=== PATIENT | male | born 1940 | race Caucasian/White ===

== ENCOUNTER → 2016-12-22 | Outpatient (CLI) | payer MEDICARE, BC | LOC: MW.CHUR 11:54 | PROVIDERS: ATTEND Urology | DX: R35.1 Nocturia (principal); Z85.51 Personal history of malignant neoplasm of bladder | CPT/HCPCS: 36415; 52000; 81001; 84153 ==

== ENCOUNTER → 2017-01-31 | Outpatient (CLI) | payer MEDICARE, BC ==
[2017-01-31 11:18] LABS: CHLORIDE,CL 104 mmol/L (98-110); SODIUM,NA 142 mmol/L (136-146)
--- NOTE | 2017-01-31 11:37 | CR ---
EXAMINATION: Two-view chest (PA and Lateral views). HISTORY: Cough. FINDINGS: The trachea is midline. The cardiomediastinal silhouette is within normal limits. Mild bibasilar ate lectasis/infiltrate. No pleural effusion or pneumothorax. Osseous structures appear unremarkable. IMPRESSION: Mild bibasilar atelectasis/infiltrate.
--- NOTE | 2017-01-31 16:18 | CR ---
EXAMINATION: Left hand HISTORY: Injury COMPARISON: None TECHNIQUE: 3 views FINDINGS: There is no acute osseous abnormality, dislocation, or fracture identified. Bone mineraliz ation appears grossly normal. Osseous changes and joint space narrowing are noted within the interph alangeal joints and more so at the first CMC joint. No soft tissue swelling. IMPRESSION: Osteoarthritic changes without acute findings.
== END | disposition home or self-care (01) ==
LOC: MW.CHFP 10:41
PROVIDERS: ATTEND Physician Assistant
DX: R05 Cough (principal); R91.8 Other nonspecific abnormal finding of lung field; J98.11 Atelectasis; S69.92XA Unspecified injury of left wrist, hand and finger(s), initial encounter; M19.042 Primary osteoarthritis, left hand; R13.10 Dysphagia, unspecified; J69.0 Pneumonitis due to inhalation of food and vomit; W19.XXXA Unspecified fall, initial encounter
CPT/HCPCS: 36415; 71020; 71020-26; 73130-26-LT; 73130-LT; 80048; 85025; G0463

== ENCOUNTER → 2017-02-10 | Outpatient (CLI) | payer MEDICARE, BC ==
--- NOTE | 2017-02-10 13:54 | CR ---
EXAMINATION: Oropharyngeal video swallow study. HISTORY: Dysphasia COMPARISON: None TECHNIQUE: Lateral images obtained, speech pathologist present, various barium consistencies provide d. FINDINGS: The patient swallowed barium without difficulty. There is good bolus formation and transf er. There is adequate epiglottic inversion and tracheal elevation. No aspiration or penetration iden tified. IMPRESSION: Unremarkable video swallow study.
== END ==
LOC: MW.DI 09:29
PROVIDERS: ATTEND Physician Assistant
DX: R13.10 Dysphagia, unspecified (principal)
CPT/HCPCS: 74230; 74230-26; 92611-GN

== ENCOUNTER 2018-01-20 06:32 | Day surgery (SDC) | payer MEDICARE, BC ==
[2018-01-20] MEDS ORDERED: ceFAZolin 2 GM in Premix Bag 1 BAG IV SCH (07:00)
[2018-01-20] MEDS ORDERED: Lactated Ringers 1,000 ML IV SCH ×2 (07:00→10:00)
[2018-01-20] MEDS ORDERED: Lidocaine 1% 20 ML MDV ONE (07:26)
[2018-01-20] MEDS ORDERED: Bupivacaine 0.5% 10 ML SDV ONE (07:26)
[2018-01-20] MEDS ORDERED: Lidocaine 2% 5 ML SDV ONE (07:26)
[2018-01-20] MEDS ORDERED: Propofol 200 MG/20 ML SDV ONE (07:27)
[2018-01-20] MEDS ORDERED: Midazolam 1 MG/ML 2 ML SDV ONE (07:27)
[2018-01-20] MEDS ORDERED: fentaNYL 100 MCG/2 ML SDV ONE (07:27)
--- NOTE | 2018-01-20 07:34 | PCM.PREANE ---
Preanesthetic Assessment - Anesthesia/Transfusion/Family Hx Anesthesia History: Prior Anesthesia Without Reaction Family History of Anesthesia Reaction: No Transfusion History: No Prior Transfusion(s) - Review of Systems General: No Symptoms Pulmonary: No Symptoms Gastrointestinal: No Symptoms Neurological: No Symptoms Other: Reports: None - Physical Assessment NPO Status Date: 01/19/18 Height: 1.85 m Weight: 110.677 kg ASA Class: 2 Mental Status: Alert & Oriented x3 Airway Class: Mallampati = 1 Dentition: Reports: Normal Dentition ROM/Head Extension: Full Lungs: Clear to Auscultation, Normal Respiratory Effort Cardiovascular: Regular Rate, Regular Rhythm - Allergies Allergies/Adverse Reactions: Allergies Allergy/AdvReac Type Severity Reaction Status Date / Time Penicillins Allergy Hives Verified 01/17/18 12:55 - Acknowledgements Anesthesia Type Planned: MAC Pt an Appropriate Candidate for the Planned Anesthesia: Yes Alternatives and Risks of Anesthesia Discussed w Pt/Guardian: Yes Pt/Guardian Understands and Agrees with Anesthesia Plan: Yes PreAnesthesia Questionnaire HEENT History: Reports: Cataract Other HEENT History: wears glasses Cardiovascular History: Reports: High Cholesterol, Hypertension Gastrointestinal History: Reports: Colon Polyp Genitourinary History: Reports: Renal Calculus Musculoskeletal History: Reports: Fracture Other Musculoskeletal History: hx of fx left clavicle Neurological History: Reports: Migraines Endocrine/Metabolic History: Reports: Obesity/BMI 30+ Oncologic (Cancer) History: Reports: Bladder, Pancreatic - Past Surgical History Head Surgeries/Procedures: Reports: None HEENT Surgical History: Reports: Cataract Surgery GI Surgical History: Reports: Colonoscopy, Other (See Below) Other GI Surgeries/Procedures: placement of biliary stent Male Surgical History: Reports: TURBT-Transurethral Resection of Bladder Tumor Oncologic Surgical History: Reports: Other (See Below) Other Oncologic Surgeries/Procedures: TURBT - SUBSTANCE USE Smoking Status *Q: Former Smoker Tobacco Use Within Last Twelve Months: No Recreational Drug Use History: No - HOME MEDS Home Medications: Home Meds Ascorbic Acid [Vitamin C] 1,000 mg PO DAILY 01/17/18 [History] Aspirin [Adult Low Dose Aspirin EC] 81 mg PO DAILY 01/17/18 [History] Clobetasol [Clobetasol Propionate 0.05%] 1 dose TOP ASDIRECTED 01/17/18 [History ] Hydrocodone/Acetaminophen [Hydrocodon-Acetaminophen 5-325] 1 tab PO ASDIRECTED 01/17/18 [History] Propranolol [Inderal LA] 160 mg PO DAILY 01/17/18 [History] Vitamin A 10,000 unit PO DAILY 01/17/18 [History] atorvaSTATin Calcium [Atorvastatin Calcium] 10 mg PO DAILY 01/17/18 [History] - CURRENT (IN HOUSE) MEDS Current Meds: Current Medications Cefazolin Sodium/Dextrose 2 gm (/ Premix) 50 mls @ 100 mls/hr IV ONETIME ROBY Lactated Ringer's (Ringers, Lactated) 1,000 mls @ 125 mls/hr IV ASDIRECTED ROBY Discontinued Medications Bupivacaine HCl (Sensorcaine-Mpf 0.5%) Confirm Administered Dose 20 ml .ROUTE .STK-MED ONE Stop: 01/20/18 07:27 Fentanyl (Sublimaze) Confirm Administered Dose 100 mcg .ROUTE .STK-MED ONE Stop: 01/20/18 07:28 Lidocaine (Xylocaine-Mpf 2%) Confirm Administered Dose 5 ml .ROUTE .STK-MED ONE Stop: 01/20/18 07:27 Lidocaine HCl (Xylocaine 1%) Confirm Administered Dose 20 ml .ROUTE .STK-MED ONE Stop: 01/20/18 07:27 Midazolam HCl (Versed 1 Mg/Ml) Confirm Administered Dose 2 mg .ROUTE .STK-MED ONE Stop: 01/20/18 07:28 Propofol (Diprivan 20 Ml) Confirm Administered Dose 200 mg .ROUTE .STK-MED ONE Stop: 01/20/18 07:28
[2018-01-20] MEDS ORDERED: ceFAZolin/Dextrose,Iso-Osmotic 2 GM/50 ML Duplex Bag IV ONE (08:02)
[2018-01-20] MEDS ORDERED: Phenylephrine/Normal Saline 100 MCG/ML 10 ML Syringe ONE (08:24)
[2018-01-20] MEDS ORDERED: Ondansetron 4 MG/2 ML SDV ONE (08:49)
[2018-01-20] MEDS ORDERED: fentaNYL 100 MCG/2 ML SDV IVPUSH PRN (08:53)
--- NOTE | 2018-01-20 09:46 | PCM.OPNOTE ---
- General Post-Op/Procedure Note Date of Surgery/Procedure: 01/20/18 Operative Procedure(s): Placement of Bard PowerPort via left subclavian vein using Seldinger technique Pre Op Diagnosis: Metastatic carcinoma of the pancreas Post-Op Diagnosis: Same Anesthesia Technique: General LMA (ASA III) Primary Surgeon: Bhavesh Garcia [employer] Attendant: Pillo Sears Fluid Replacement, Intraop: 900 EBL in mLs: 15 Condition: Good Free Text/Narrative:: Dictation [id number] CPT CODE 18266
[2018-01-20] MEDS ORDERED: Acetaminophen/HYDROcodone 325-10 MG Tab PO PRN (09:47)
--- NOTE | 2018-01-20 10:31 | CR ---
EXAMINATION: Portable chest radiograph. HISTORY: Port-A-Cath placement. FINDINGS: The trachea is midline. The cardiomediastinal silhouette is within normal limits. No pulmonary infilt rates, effusions or pneumothorax. Left-sided rodger catheter noted with tip in good position. Mild rig ht basilar atelectasis. Osseous structures appear unremarkable. IMPRESSION: Portacatheter noted with tip in good position.
--- NOTE | 2018-01-20 10:46 | PCM.POSTAN ---
POST ANESTHESIA ASSESSMENT - MENTAL STATUS Mental Status: Alert, Oriented - RESPIRATORY Respiratory Status: Respiratory Rate WNL, Airway Patent, O2 Saturation Stable - CARDIOVASCULAR CV Status: Pulse Rate WNL, Blood Pressure Stable - GASTROINTESTINAL GI Status: No Symptoms - POST OP HYDRATION Hydration Status: Adequate & Stable
--- NOTE | 2018-01-20 10:47 | PCM48HPAN ---
Post Anesthesia Note - EVALUATION WITHIN 48HRS OF ANESTHETIC Vital Signs in Normal Range: Yes Patient Participated in Evaluation: Yes Respiratory Function Stable: Yes Airway Patent: Yes Cardiovascular Function Stable: Yes Hydration Status Stable: Yes Pain Control Satisfactory: Yes Nausea and Vomiting Control Satisfactory: Yes Mental Status Recovered: Yes Resp Rate: 15
--- NOTE | 2018-01-20 13:38 | PCM.SN ---
- Free Text/Narrative Note: Chest xray--line in good position. No pneumothorax.
--- NOTE | 2018-01-20 13:54 | OR ---
SURGEON: Bhavesh Garcia M.D. DATE OF PROCEDURE: 01/20/2018 OPERATION PERFORMED: Placement of Bard PowerPort. CHIEF DISPATCHER SERVICE: Dr. Sears. ANESTHESIA: General LMA. ASA CLASSIFICATION: III. PREOPERATIVE DIAGNOSIS: Adenocarcinoma of the prostate, need for chemotherapy. POSTOPERATIVE DIAGNOSIS: Adenocarcinoma of the prostate, need for chemotherapy. ESTIMATED BLOOD LOSS: 15 mL. FLUID REPLACEMENT: 900 mL of crystalloid. DESCRIPTION OF PROCEDURE: The patient was taken to the operating room and placed on the operating table in the supine position. This was on the fluoroscopy table. Time-out was called for appropriate identification of the patient and procedure. Surgical site was marked prior to the patient entering the operating room. Thigh-high TEDs and sequential compression boots have been placed. Following satisfactory attainment of general anesthesia with placement of an LMA, the anterior chest was prepped with DuraPrep solution and sterile drapes were applied. 3 minutes were waited for the DuraPrep to dry. The initial attempt was made for a left cephalic vein approach. The left deltopectoral groove was marked out and the skin infiltrated with 1% Xylocaine and 0.5% Marcaine solution. The skin incision was made and deepened through the subcutaneous tissue obtaining hemostasis with the use of electrocautery. Dissection was carried down to the deltopectoral groove. There was no usable cephalic vein identified. Therefore, this approach was abandoned and a left subclavian approach using Seldinger technique was completed. The needle was inserted at the junction of the medial 2/3 and lateral 1/3 of the clavicle. The needle was advanced until it hit the clavicle and then was advanced under the clavicle. On the first pass, the subclavian artery was hit and recognized medially. The needle was promptly removed and pressure held for approximately 3 minutes. No developing hematoma was noted. The patient had been positioned with his head down. It took multiple passes to ultimately cannulate the subclavian vein. On the first cannulation, the guidewire would not advance. Dr. Merida was called for intraoperative consultation in anticipation of needing a left internal jugular approach with ultrasound guidance. When she arrived, however, I was able to cannulate the subclavian vein with excellent blood return. The guidewire was passed easily and its position confirmed with fluoroscopy. A small skin incision was then made, and the introducer and peel-away sheath were passed over the guidewire removing the guidewire and introducer. The catheter, which had been flushed with saline was now inserted through the peel-away sheath and again positioned with the use of fluoroscopy in the distal superior vena cava. This was subsequently withdrawn to the proximal superior vena cava and again confirmed by fluoroscopy. The catheter was then positioned initially in the deltopectoral incision using the tunneling device and subsequently through a separate anterior chest wall incision. The chest wall incision had been made and deepened into the subcutaneous tissue, but not down to the clavipectoral fascia. Again, hemostasis was obtained with the use of electrocautery. Once the catheter was satisfactorily positioned in the subcutaneous tunnel bringing it out through the anterior chest wall incision, the catheter was clamped with a hemostat to avoid an air embolus. The catheter was cut to appropriate length and the catheter and port were assembled, securing this with the locking device. The port was then secured to the underlying subcutaneous tissue with 2-0 silk. Care was taken to position this as flat as possible. The wound again was inspected for hemostasis and no other bleeding was noted. The deltopectoral and chest wall incisions were closed in 2 layers approximating the subcutaneous tissue with 3-0 Vicryl and the skin with subcuticular 4-0 Monocryl. The small incision just below the clavicle was closed with a 3-0 Vicryl. All incisions were Steri-Stripped and dressed with sterile Tegaderm pads. Sponge, needle, and instrument counts were all correct. The patient tolerated the procedure well. Following emergence from anesthesia and extubation, he was taken to recovery room in stable condition. MARGARITA VILLARREAL /[id number]
== END 2018-01-20 10:53 | disposition home or self-care (01) ==
LOC: MW.SDS 06:32
PROVIDERS: ATTEND Surgery
DX: C61 Malignant neoplasm of prostate (principal); E78.00 Pure hypercholesterolemia, unspecified; I10 Essential (primary) hypertension; E66.9 Obesity, unspecified; Z68.30 Body mass index [BMI] 30.0-30.9, adult; Z88.0 Allergy status to penicillin; Z85.51 Personal history of malignant neoplasm of bladder; Z85.07 Personal history of malignant neoplasm of pancreas; Z79.899 Other long term (current) drug therapy; Z79.82 Long term (current) use of aspirin
CPT/HCPCS: 36561; 71045; 76000; J0690; J2250; J2405; J3010; J7120; J2704

== ENCOUNTER 2018-03-15 17:07 | Observation (INO) | payer MEDICARE, BC ==
--- NOTE | 2018-03-15 18:57 | PCM.HP ---
H&P History of Present Illness - General Date of Service: 03/15/18 Admit Problem/Dx: Admission Diagnosis/Problem Admission Diagnosis/Problem DVT, Deep venous thrombosis - History of Present Illness Initial Comments - Free Text/Narative: 77 yo male with pmh of metastatic pancreatic cancer discovered last January and is currently undergoing chemotherapy. He was found to have a left leg DVT on ultrasound when he presented to [facility] with left swollen leg. He was referred for admission as it was felt he would had difficulty learning self injections of lovenox. - Related Data Allergies/Adverse Reactions: Allergies Allergy/AdvReac Type Severity Reaction Status Date / Time Penicillins Allergy Hives Verified 03/15/18 17:29 Home Medications: Home Meds Ascorbic Acid [Vitamin C] 1,000 mg PO DAILY 01/17/18 [History] Aspirin [Adult Low Dose Aspirin EC] 81 mg PO DAILY 01/17/18 [History] Clobetasol [Clobetasol Propionate 0.05%] 1 applic TOP BID PRN 01/17/18 [History] Propranolol [Inderal LA] 160 mg PO DAILY 01/17/18 [History] Vitamin A 10,000 unit PO DAILY 01/17/18 [History] atorvaSTATin Calcium [Atorvastatin Calcium] 10 mg PO DAILY 01/17/18 [History] Past Medical History HEENT History: Reports: Cataract, Impaired Vision Other HEENT History: wears glasses Cardiovascular History: Reports: High Cholesterol, Hypertension Respiratory History: Reports: None Gastrointestinal History: Reports: Colon Polyp Genitourinary History: Reports: Renal Calculus Musculoskeletal History: Reports: Fracture Other Musculoskeletal History: hx of fx left clavicle Neurological History: Reports: Migraines Psychiatric History: Reports: None Endocrine/Metabolic History: Reports: Obesity/BMI 30+ Hematologic History: Reports: None Immunologic History: Reports: None Oncologic (Cancer) History: Reports: Bladder, Pancreatic Dermatologic History: Reports: None - Infectious Disease History Infectious Disease History: Reports: None - Past Surgical History Head Surgeries/Procedures: Reports: None HEENT Surgical History: Reports: Cataract Surgery Cardiovascular Surgical History: Reports: None GI Surgical History: Reports: Colonoscopy, Other (See Below) Other GI Surgeries/Procedures: placement of biliary stent Male Surgical History: Reports: TURBT-Transurethral Resection of Bladder Tumor Neurological Surgical History: Reports: None Musculoskeletal Surgical History: Reports: None Oncologic Surgical History: Reports: Other (See Below) Other Oncologic Surgeries/Procedures: TURBT Social & Family History - Family History Family Medical History: Noncontributory - Tobacco Use Smoking Status *Q: Never Smoker Second Hand Smoke Exposure: No - Caffeine Use Caffeine Use: Reports: None - Recreational Drug Use Recreational Drug Use: No H&P Review of Systems - Review of Systems: Review Of Systems: ROS reveals no pertinent complaints other than HPI. Exam - Exam Exam: See Below - Vital Signs Vital Signs: Last Vital Signs Temp 37.1 C 03/15/18 17:11 Pulse 72 03/15/18 17:11 Resp 18 03/15/18 17:11 BP 133/78 03/15/18 17:11 Pulse Ox 97 03/15/18 17:11 Weight: 105.37 kg - Exam General: Alert, Oriented HEENT: Mucosa Moist & [place] Neck: Supple Lungs: Clear to Auscultation, Normal Respiratory Effort Cardiovascular: Regular Rate, Regular Rhythm GI/Abdominal Exam: Normal Bowel Sounds, Soft, Non-Tender Extremities: Other (mild edema and erythema of left calf and puente) Neurological: No: Focal Deficit Problem List Initiated/Reviewed/Updated: Yes Orders Last 24hrs: Active Orders 24 hr Category Date Time Status Patient Status [ADT] Routine ADT 03/15/18 18:51 Ordered Oxygen Therapy [RC] PRN Care 03/15/18 18:51 Ordered Up ad Rand [RC] ASDIRECTED Care 03/15/18 18:51 Ordered VTE/DVT Education [RC] PER UNIT ROUTINE Care 03/15/18 18:51 Ordered Vital Signs [RC] Q4H Care 03/15/18 18:51 Ordered Regular Diet [DIET] Diet 03/15/18 Breakfast Ordered BASIC METABOLIC PANEL,BMP [CHEM] AM Lab 03/16/18 05:11 Ordered CBC WITH AUTO DIFF [HEME] AM Lab 03/16/18 05:11 Ordered INR,PT,PROTHROMBIN TIME [COAG] Routine Lab 03/15/18 18:31 Ordered Enoxaparin [Lovenox] Med 03/15/18 19:00 Ordered 105 mg SUBCUT Q12H Propranolol [Inderal LA] Med 03/16/18 09:00 Ordered 160 mg PO DAILY atorvaSTATin [Lipitor] Med 03/16/18 09:00 Ordered 10 mg PO DAILY Sequential Compression Device [OM.PC] Per Unit Routine Oth 06/20/18 18:51 Ordered Resuscitation Status Routine Resus Stat 03/15/18 18:51 Ordered Medication Orders Atorvastatin Calcium (Lipitor) 10 mg PO DAILY ROBY Enoxaparin Sodium (Lovenox) 100 mg SUBCUT Q12H ROBY Propranolol HCl (Inderal La) 160 mg PO DAILY ROBY Assessment/Plan Comment:: 77 yo male admitted with left leg DVT. We quiroz start Lovenox sc Q12H and monitor overnight.
[2018-03-15] MEDS: Enoxaparin 100 MG/1 ML Syringe SUBCUT SCH (19:49)
[2018-03-16] MEDS: Enoxaparin 100 MG/1 ML Syringe SUBCUT SCH (06:52)
[2018-03-16 07:09] LABS: CHLORIDE,CL 106 mmol/L (98-107); SODIUM,NA 140 mmol/L (136-148)
[2018-03-16] MEDS ORDERED: Propranolol 80 MG Cap.ER PO SCH (09:00)
[2018-03-16] MEDS ORDERED: atorvaSTATin 10 MG Tab PO SCH (09:00)
--- NOTE | 2018-03-16 10:00 | PCM.DCSUM1 ---
Discharge Summary - Hospital Course Brief History: 77 yo male with pmh of metastatic pancreatic cancer discovered last January and is currently undergoing chemotherapy. He was found to have a left leg DVT on ultrasound when he presented to [facility] with left swollen leg. He was referred for admission as it was felt he would had difficulty learning self injections of lovenox. - Discharge Data Discharge Date: 03/16/18 Discharge Disposition: Home, Self-Care 01 Condition: Good - Patient Instructions Diet: Regular Diet as Tolerated Activity: As Tolerated, No Strenuous Activities Showering/Bathing: January Shower Notify Provider of: Fever, Increased Pain Other/Special Instructions: Monitor for signs of bleeding, these include nose bleeds, coughing up blood, black or bloody bowel movements. If these occur please contact Oncology or PCP immediately. - Discharge Plan Prescriptions/Med Rec: Enoxaparin [Lovenox] 100 mg SUBCUT Q12H #60 syringe Home Medications: Home Meds Ascorbic Acid [Vitamin C] 1,000 mg PO DAILY 01/17/18 [History] Aspirin [Adult Low Dose Aspirin EC] 81 mg PO DAILY 01/17/18 [History] Clobetasol [Clobetasol Propionate 0.05% Cream] 1 applic TOP BID PRN 01/17/18 [ History] Propranolol [Inderal LA] 160 mg PO DAILY 01/17/18 [History] Vitamin A 10,000 unit PO DAILY 01/17/18 [History] atorvaSTATin Calcium [Atorvastatin Calcium] 10 mg PO DAILY 01/17/18 [History] Melatonin 5 mg PO BEDTIME PRN 03/15/18 [History] Enoxaparin [Lovenox] 100 mg SUBCUT Q12H #60 syringe 03/16/18 [Rx] Patient Handouts: How and Where to Give Subcutaneous Enoxaparin Injections, Deep Vein Thrombosis Referrals: Amber Edward MD [Ordering Only Provider] - - Discharge Summary/Plan Comment DC Time >30 min.: No Discharge Summary/Plan Comment: Discharge Diagnoses: L leg DVT Metastatic pancreatic cancer Scott was admitted due to L lower leg swelling and was found to have new DVT extending from the mid femoral vein into the posterior tibial vein. He had noticed some swelling, no significant pain. He was directly admitted from the clinic yesterday. He was started on Lovenox 100 mg subcutaneous inj BID last evening. I spoke with Bruna Cabrera NP in Oncology who agrees with Lovenox for at least 6 months. He is eager to go home today and will receive Lovenox teaching prior to discharge. He feels comfortable self injecting at home. Leukocytosis noted, but wa given Neulasta on March 09. He denies chest pain, shortness of breath or fevers. He has follow up with Dr Edward in Oncology next week, he was encouraged to keep this follow up. He was educated on signs and symptoms of bleeding, including chest pain, shortness of breath, abdominal pain or headaches. He was advised to monitor stools and notify Oncology if black/ tarry or bloody in nature. He verbalized understanding. He is to return to the ED or clinic if concerns should arise. - General Info Date of Service: 03/16/18 Admission Dx/Problem (Free Text: Admission Diagnosis/Problem Admission Diagnosis/Problem DVT, Deep venous thrombosis Subjective Update: Doing well this morning, has no concerns. He reports pain is fine to leg, swelling is improving. He was encouraged to keep leg elevated as much as possible at home and limit walking/exercise until swelling improves. Denies chest pain or SOB. Tolerating diet and drinking fluids well. Eager to go home today. Functional Status: Reports: Pain Controlled, Tolerating Diet, Ambulating, Urinating - Review of Systems General: Reports: No Symptoms. Denies: Fever, Weakness, Fatigue Pulmonary: Reports: No Symptoms. Denies: Shortness of Breath Cardiovascular: Reports: Edema (to L lower leg, improving. ). Denies: Chest Pain, Palpitations, Dyspnea on Exertion Gastrointestinal: Reports: No Symptoms. Denies: Abdominal Pain, Nausea, Vomiting Musculoskeletal: Reports: No Symptoms Neurological: Reports: No Symptoms Psychiatric: Reports: No Symptoms - Patient Data Vitals - Most Recent: Last Vital Signs Temp 98.0 F 03/16/18 08:00 Pulse 85 03/16/18 08:00 Resp 16 03/16/18 08:00 BP 127/77 03/16/18 08:00 Pulse Ox 93 L 03/16/18 08:00 Weight - Most Recent: 105.37 kg I&O - Last 24 hours: Intake & Output 03/15/18 03/16/18 03/16/18 22:59 06:59 14:59 Intake Total 600 Output Total 750 Balance -150 Lab Results - Last 24 hrs: Laboratory Results - last 24 hr 03/15/18 03/16/18 03/16/18 Range/Units 19:10 06:10 08:00 WBC 17.55 H (4.0-11.0) K/uL RBC 3.99 L (4.50-5.90) M/uL Hgb 11.5 L (13.0-17.0) g/dL Hct 35.4 L (38.0-50.0) % MCV 88.7 (80.0-98.0) fL MCH 28.8 (27.0-32.0) pg MCHC 32.5 (31.0-37.0) g/dL RDW Std Deviation 49.1 (28.0-62.0) fl RDW Coeff of Arnaud 16 H (11.0-15.0) % Plt Count 263 (150-400) K/uL MPV 9.00 (7.40-12.00) fL Add Manual Diff YES Neutrophils % (Manual) 73 (48.0-80.0) % Band Neutrophils % 11 % Lymphocytes % (Manual) 8 L (16.0-40.0) % Monocytes % (Manual) 2 (0.0-15.0) % Eosinophils % (Manual) 1 (0.0-7.0) % Basophils % (Manual) 1 (0.0-1.5) % Metamyelocytes % 4 % Nucleated RBC % 0.4 /100WBC Absolute Seg Neuts 12.8 H (1.4-5.7) Band Neutrophils # 1.9 Lymphocytes # (Manual) 1.4 (0.6-2.4) Monocytes # (Manual) 0.4 (0.0-0.8) Eosinophils # (Manual) 0.2 (0.0-0.7) Basophils # (Manual) 0.2 H (0.0-0.1) Absolute Metamyelocyte 0.7 Nucleated RBCs # 0 K/uL INR 1.07 Sodium 140 (136-148) mmol/L Potassium 3.8 (3.5-5.1) mmol/L Chloride 106 (98-107) mmol/L Carbon Dioxide 26.8 (21.0-32.0) mmol/L BUN 14 (7.0-18.0) mg/dL Creatinine 0.8 (0.8-1.3) mg/dL Est Cr Clr Drug Dosing 90.16 mL/min Estimated GFR (MDRD) > 60.0 ml/min Glucose 111 H (74-106) mg/dL Calcium 8.4 L (8.5-10.1) mg/dL Med Orders - Current: Current Medications Atorvastatin Calcium (Lipitor) 10 mg PO DAILY [facility] Last Admin: 03/16/18 08:33 Dose: 10 mg Enoxaparin Sodium (Lovenox) 100 mg SUBCUT Q12H [facility] Last Admin: 03/16/18 06:52 Dose: 100 mg Propranolol HCl (Inderal La) 160 mg PO DAILY [facility] Last Admin: 03/16/18 08:32 Dose: 160 mg - Exam Quality Assessment: Reports: DVT Prophylaxis. Denies: Supplemental Oxygen General: Reports: Alert, Oriented, Cooperative, No Acute Distress Lungs: Reports: Clear to Auscultation, Normal Respiratory Effort Cardiovascular: Reports: Regular Rate, Regular Rhythm GI/Abdominal Exam: Normal Bowel Sounds, Soft, Non-Tender Extremities: Normal Range of Motion, Non-Tender, Pedal Edema (+1 pitting edema to L lower leg, patient reports it is improving and has very little pain, No pain to palpation of calf or thigh.). No: Redness Neurological: Reports: No New Focal Deficit Psy/Mental Status: Reports: Alert, Normal Affect, Normal Mood
== END 2018-03-16 13:00 | disposition home or self-care (01) ==
LOC: MW.MS 17:07
PROVIDERS: ADMIT Internal Medicine; ATTEND Internal Medicine
DX: I82.412 Acute embolism and thrombosis of left femoral vein (principal); I82.442 Acute embolism and thrombosis of left tibial vein; C25.9 Malignant neoplasm of pancreas, unspecified; C79.9 Secondary malignant neoplasm of unspecified site; I10 Essential (primary) hypertension; E78.00 Pure hypercholesterolemia, unspecified; G43.909 Migraine, unspecified, not intractable, without status migrainosus; E66.9 Obesity, unspecified; Z68.30 Body mass index [BMI] 30.0-30.9, adult; Z86.010 Personal history of colon polyps; Z85.51 Personal history of malignant neoplasm of bladder; Z79.82 Long term (current) use of aspirin; Z79.899 Other long term (current) drug therapy; Z88.0 Allergy status to penicillin
CPT/HCPCS: 36415; 80048; 85025; 85610; 96372; A9270; G0378; J1650

== ENCOUNTER 2019-06-17 15:59 | Observation (INO) | payer MEDICARE, BC ==
[2019-06-17] MEDS ORDERED: Sodium Chloride 0.9% 2.5 ML Syringe FLUSH PRN (16:08)
[2019-06-17] MEDS ORDERED: Sodium Chloride 0.9% 10 ML Syringe FLUSH PRN (16:08)
--- NOTE | 2019-06-17 16:39 | EDM.PDOC ---
ED HPI GENERAL MEDICAL PROBLEM - General Chief Complaint: Respiratory Problem Stated Complaint: AMB Time Seen by Provider: 06/17/19 16:07 Source of Information: Reports: Patient History Limitations: Reports: No Limitations - History of Present Illness INITIAL COMMENTS - FREE TEXT/NARRATIVE: HISTORY AND PHYSICAL: History of present illness: Patient is a 78-year-old male who presents to the ED today via EMS with concern of weakness and feeling tired. Patient is currently undergoing chemotherapy for pancreatic cancer with metastasis. Patient states last week he had a round of chemotherapy. Patient states that usually on the next few days following chemotherapy, he feels more tired and run down. Patient states that after a few days usually perks back up but this time he still feels weak and tired. Patient states if he does get up and move for long distances he does feel more short of breath but doesn't feel short of breath at rest. Patient states he is scheduled for chemotherapy again this week and sees Dr. Edward. Patient denies fever, chills, chest pain, or cough. Denies headache, neck stiff ness, change in vision, syncope, or near syncope. Denies nausea, vomiting, abdominal pain, diarrhea, constipation, or dysuria. Has not noted any blood in urine or stool. Patient has been eating and drinking per his baseline. Review of systems: As per history of present illness and below otherwise all systems reviewed and negative. Past medical history: As per history of present illness and as reviewed below otherwise noncontributory. Surgical history: As per history of present illness and as reviewed below otherwise noncontributory. Social history: See social history for further information Family history: As per history of present illness and as reviewed below otherwise noncontributory. Physical exam: General: Patient is alert, oriented, and in no acute distress. Patient laying comfortably on exam table and appears chronically ill. HEENT: Atraumatic, normocephalic, pupils equal and reactive bilaterally, negative for conjunctival pallor or scleral icterus, mucous membranes dry, TMs normal bilaterally, throat clear, neck supple, nontender, trachea midline. No drooling or trismus noted. No meningeal signs. No hot potato voice noted. Lungs: Clear to auscultation, breath sounds equal bilaterally, chest nontender. Heart: Sounds are distant but S1S2, irregular rate and rhythm without overt murmur Abdomen: Soft, nondistended, nontender. Negative for masses or hepatosplenomegaly. Negative for costovertebral tenderness. Pelvis: Stable nontender. Genitourinary: Deferred. Rectal: Deferred. Skin: Pale, intact, warm, dry. No lesions or rashes noted. Extremities: Atraumatic, negative for cords or calf pain. Neurovascular unremarkable. Neuro: Awake, alert, oriented. Cranial nerves II through XII unremarkable. Cerebellum unremarkable. Motor and sensory unremarkable throughout. Exam nonfocal. Notes: Dr. Turpin consulted on patient and will admit to observation Voices understanding and is agreeable to plan of care. Denies any further questions or concerns at this time. Diagnostics: CBC, CMP, UA, EKG, chest x-ray, troponin, BNP, lactate, blood cultures x 2, influenza, Type and Screen Therapeutics: None Impression: Symptomatic Anemia Immunosuppression Dehydration Plan: 1. Admit to observation to Dr. Turpin. Definitive disposition and diagnosis as appropriate pending reevaluation and review of above. - Related Data Allergies Allergy/AdvReac Type Severity Reaction Status Date / Time Penicillins Allergy Hives Verified 06/17/19 16:00 Home Meds: Home Meds Ascorbic Acid [Vitamin C] 1,000 mg PO DAILY 01/17/18 [History] Propranolol [Inderal LA] 160 mg PO DAILY 01/17/18 [History] Vitamin A 10,000 unit PO DAILY 01/17/18 [History] atorvaSTATin Calcium [Atorvastatin Calcium] 10 mg PO DAILY 01/17/18 [History] Apixaban [Eliquis] 5 mg PO DAILY 09/17/18 [History] dexAMETHasone [Dexamethasone] 4 mg PO ASDIRECTED 09/17/18 [History] hydroCHLOROthiazide [Hydrochlorothiazide] 50 mg PO DAILY 06/17/19 [History] Past Medical History HEENT History: Reports: Cataract, Impaired Vision Other HEENT History: wears glasses Cardiovascular History: Reports: Blood Clots/VTE/DVT, High Cholesterol, Hypertension Respiratory History: Reports: None Gastrointestinal History: Reports: Colon Polyp Genitourinary History: Reports: Renal Calculus Musculoskeletal History: Reports: Fracture Other Musculoskeletal History: hx of fx left clavicle Neurological History: Reports: Migraines Psychiatric History: Reports: None Endocrine/Metabolic History: Reports: Obesity/BMI 30+ Hematologic History: Reports: None Immunologic History: Reports: None Oncologic (Cancer) History: Reports: Bladder, Pancreatic Dermatologic History: Reports: None - Infectious Disease History Infectious Disease History: Reports: None - Past Surgical History Head Surgeries/Procedures: Reports: None HEENT Surgical History: Reports: Cataract Surgery Cardiovascular Surgical History: Reports: None Respiratory Surgical History: Reports: None GI Surgical History: Reports: Colonoscopy, Other (See Below) Other GI Surgeries/Procedures: placement of biliary stent Male Surgical History: Reports: TURBT-Transurethral Resection of Bladder Tumor Neurological Surgical History: Reports: None Musculoskeletal Surgical History: Reports: None Oncologic Surgical History: Reports: Other (See Below) Other Oncologic Surgeries/Procedures: TURBT Social & Family History - Family History Family Medical History: Noncontributory - Tobacco Use Smoking Status *Q: Never Smoker Second Hand Smoke Exposure: No - Caffeine Use Caffeine Use: Reports: None - Recreational Drug Use Recreational Drug Use: No ED ROS GENERAL - Review of Systems Review Of Systems: ROS reveals no pertinent complaints other than HPI. ED EXAM, GENERAL - Physical Exam Exam: See Below (See dictation) Course - Vital Signs Last Recorded V/S: Last Vital Signs Temp 98.1 F 06/17/19 21:47 Pulse 72 06/17/19 21:47 Resp 16 06/17/19 21:47 BP 127/62 06/17/19 21:47 Pulse Ox 94 L 06/17/19 21:32 - Orders/Labs/Meds Orders: Active Orders 24 hr Category Date Time Status CULTURE BLOOD [BC] Stat Lab 06/17/19 16:10 Received CULTURE BLOOD [BC] Stat Lab 06/17/19 16:40 Received TYPE AND SCREEN [BBK] Stat Lab 06/17/19 17:41 Results UA RFX MIKO AND CULT IF INDIC [URIN] Stat Lab 06/17/19 16:07 Ordered Sodium Chloride 0.9% [Saline Flush] Med 06/17/19 16:08 Active 10 ml FLUSH ASDIRECTED PRN Sodium Chloride 0.9% [Saline Flush] Med 06/17/19 16:08 Active 2.5 ml FLUSH ASDIRECTED PRN Blood Culture x2 Reflex Set [OM.PC] Stat Oth 06/17/19 16:16 Ordered Saline Lock Insert [OM.PC] Stat Oth 06/17/19 16:08 Ordered Medication Orders Acetaminophen (Tylenol) 650 mg PO Q4H PRN PRN Reason: Pain/Fever Apixaban (Eliquis) 5 mg PO DAILY [facility] Atorvastatin Calcium (Lipitor) 10 mg PO DAILY ROBY Dexamethasone (Dexamethasone) 4 mg PO ASDIRECTED ROBY Sodium Chloride (Normal Saline) 1,000 mls @ 125 mls/hr IV ASDIRECTED ROBY Last Admin: 06/17/19 18:33 Dose: 125 mls/hr Non-Formulary Medication (Ascorbic Acid [Vitamin C]) 1,000 mg PO DAILY ROBY Non-Formulary Medication (Hydrochlorothiazide [Hydrochlorothiazide]) 50 mg PO DAILY ROBY Non-Formulary Medication (Propranolol [Inderal La]) 160 mg PO DAILY ROBY Non-Formulary Medication (Vitamin A) 10,000 unit PO DAILY ROBY Ondansetron HCl (Zofran) 4 mg IVPUSH Q4H PRN PRN Reason: Nausea/Vomiting Sodium Chloride (Saline Flush) 10 ml FLUSH ASDIRECTED PRN PRN Reason: Keep Vein Open Sodium Chloride (Saline Flush) 2.5 ml FLUSH ASDIRECTED PRN PRN Reason: Keep Vein Open Labs: Laboratory Tests 06/17/19 06/17/19 06/17/19 Range/Units 14:10 16:10 16:10 WBC 2.15 L (4.0-11.0) K/uL RBC 2.96 L (4.50-5.90) M/uL Hgb 7.9 L (13.0-17.0) g/dL Hct 25.7 L (38.0-50.0) % MCV 86.8 (80.0-98.0) fL MCH 26.7 L (27.0-32.0) pg MCHC 30.7 L (31.0-37.0) g/dL RDW Std Deviation 64.7 H (28.0-62.0) fl RDW Coeff of Arnaud 21 H (11.0-15.0) % Plt Count 126 L (150-400) K/uL MPV 9.50 (7.40-12.00) fL Add Manual Diff YES Neutrophils % (Manual) 47 L (48.0-80.0) % Band Neutrophils % 8 % Lymphocytes % (Manual) 22 (16.0-40.0) % Monocytes % (Manual) 18 H (0.0-15.0) % Metamyelocytes % 1 % Myelocytes % 4 % Nucleated RBC % 4.5 /100WBC Absolute Seg Neuts 1.0 L (1.4-5.7) Band Neutrophils # 0.2 Lymphocytes # (Manual) 0.5 L (0.6-2.4) Monocytes # (Manual) 0.4 (0.0-0.8) Absolute Metamyelocyte 0 Absolute Myelocytes 0.1 Nucleated RBCs # 0 K/uL Poikilocytosis 2+ MODERATE Helmet Cells 1+ SLIGHT Elliptocytes 1+ SLIGHT INR 1.40 Lactate (0.20-2.00) mmol/L Sodium 136 (136-148) mmol/L Potassium 3.5 (3.5-5.1) mmol/L Chloride 103 (98-107) mmol/L Carbon Dioxide 22.9 (21.0-32.0) mmol/L BUN 18 (7.0-18.0) mg/dL Creatinine 1.5 H (0.8-1.3) mg/dL Est Cr Clr Drug Dosing 47.35 mL/min Estimated GFR (MDRD) 45.5 ml/min Glucose 88 (74-106) mg/dL Calcium 7.2 L (8.5-10.1) mg/dL Total Bilirubin 1.3 H (0.2-1.0) mg/dL AST 42 H (15-37) IU/L ALT 38 (14-63) IU/L Alkaline Phosphatase 103 (46-116) U/L Troponin I < 0.050 (0.000-0.056) ng/mL B-Natriuretic Peptide (<100) PG/ML Total Protein 4.6 L (6.4-8.2) g/dL Albumin 2.1 L (3.4-5.0) g/dL Globulin 2.5 L (2.6-4.0) g/dL Albumin/Globulin Ratio 0.8 L (0.9-1.6) Blood Type Antibody Screen Crossmatch 06/17/19 06/17/19 06/17/19 Range/Units 16:10 16:10 17:41 WBC (4.0-11.0) K/uL RBC (4.50-5.90) M/uL Hgb (13.0-17.0) g/dL Hct (38.0-50.0) % MCV (80.0-98.0) fL MCH (27.0-32.0) pg MCHC (31.0-37.0) g/dL RDW Std Deviation (28.0-62.0) fl RDW Coeff of Arnaud (11.0-15.0) % Plt Count (150-400) K/uL MPV (7.40-12.00) fL Add Manual Diff Neutrophils % (Manual) (48.0-80.0) % Band Neutrophils % % Lymphocytes % (Manual) (16.0-40.0) % Monocytes % (Manual) (0.0-15.0) % Metamyelocytes % % Myelocytes % % Nucleated RBC % /100WBC Absolute Seg Neuts (1.4-5.7) Band Neutrophils # Lymphocytes # (Manual) (0.6-2.4) Monocytes # (Manual) (0.0-0.8) Absolute Metamyelocyte Absolute Myelocytes Nucleated RBCs # K/uL Poikilocytosis Helmet Cells Elliptocytes INR Lactate 1.4 (0.20-2.00) mmol/L Sodium (136-148) mmol/L Potassium (3.5-5.1) mmol/L Chloride (98-107) mmol/L Carbon Dioxide (21.0-32.0) mmol/L BUN (7.0-18.0) mg/dL Creatinine (0.8-1.3) mg/dL Est Cr Clr Drug Dosing mL/min Estimated GFR (MDRD) ml/min Glucose (74-106) mg/dL Calcium (8.5-10.1) mg/dL Total Bilirubin (0.2-1.0) mg/dL AST (15-37) IU/L ALT (14-63) IU/L Alkaline Phosphatase (46-116) U/L Troponin I (0.000-0.056) ng/mL B-Natriuretic Peptide 104 H (<100) PG/ML Total Protein (6.4-8.2) g/dL Albumin (3.4-5.0) g/dL Globulin (2.6-4.0) g/dL Albumin/Globulin Ratio (0.9-1.6) Blood Type A POSITIVE Antibody Screen NEGATIVE Crossmatch See Detail Meds: Medications Generic Name Dose Route Start Last Admin Trade Name Freq PRN Reason Stop Dose Admin Acetaminophen 650 mg 06/17/19 18:13 Tylenol PO Q4H PRN Pain/Fever Apixaban 5 mg 06/18/19 09:00 Eliquis PO DAILY [facility] Atorvastatin Calcium 10 mg 06/18/19 09:00 Lipitor PO DAILY ROBY Dexamethasone 4 mg 06/17/19 18:15 Dexamethasone PO ASDIRECTED [facility] Sodium Chloride 1,000 mls @ 125 mls/hr 06/17/19 18:15 06/17/19 18:33 Normal Saline IV 125 mls/hr ASDIRECTED [facility] Administration Non-Formulary Medication 1,000 mg 06/18/19 09:00 Ascorbic Acid [Vitamin C] PO DAILY ROBY Non-Formulary Medication 50 mg 06/18/19 09:00 Hydrochlorothiazide [Hydrochlorothiazide] PO DAILY ROBY Non-Formulary Medication 160 mg 06/18/19 09:00 Propranolol [Inderal La] PO DAILY [facility] Non-Formulary Medication 10,000 unit 06/18/19 09:00 Vitamin A PO DAILY ROBY Ondansetron HCl 4 mg 06/17/19 18:13 Zofran IVPUSH Q4H PRN Nausea/Vomiting Sodium Chloride 10 ml 06/17/19 16:08 Saline Flush FLUSH ASDIRECTED PRN Keep Vein Open Sodium Chloride 2.5 ml 06/17/19 16:08 Saline Flush FLUSH ASDIRECTED PRN Keep Vein Open Departure - Departure Time of Disposition: 17:40 Disposition: Refer to Observation Clinical Impression: Symptomatic anemia, Immunosuppression, Dehydration - Discharge Information - My Orders Last 24 Hours: My Active Orders 06/17/19 16:07 UA RFX MIKO AND CULT IF INDIC [URIN] Stat 06/17/19 16:08 Sodium Chloride 0.9% [Saline Flush] 10 ml FLUSH ASDIRECTED PRN Sodium Chloride 0.9% [Saline Flush] 2.5 ml FLUSH ASDIRECTED PRN Saline Lock Insert [OM.PC] Stat 06/17/19 16:10 CULTURE BLOOD [BC] Stat 06/17/19 16:16 Blood Culture x2 Reflex Set [OM.PC] Stat 06/17/19 16:40 CULTURE BLOOD [BC] Stat 06/17/19 17:41 TYPE AND SCREEN [BBK] Stat - Assessment/Plan Last 24 Hours: My Active Orders 06/17/19 16:07 UA RFX MIKO AND CULT IF INDIC [URIN] Stat 06/17/19 16:08 Sodium Chloride 0.9% [Saline Flush] 10 ml FLUSH ASDIRECTED PRN Sodium Chloride 0.9% [Saline Flush] 2.5 ml FLUSH ASDIRECTED PRN Saline Lock Insert [OM.PC] Stat 06/17/19 16:10 CULTURE BLOOD [BC] Stat 06/17/19 16:16 Blood Culture x2 Reflex Set [OM.PC] Stat 06/17/19 16:40 CULTURE BLOOD [BC] Stat 06/17/19 17:41 TYPE AND SCREEN [BBK] Stat
[2019-06-17 16:41] LABS: BLOOD UREA NITROGEN,BUN 18 mg/dL (7.0-18.0); CARBON DIOXIDE,CO2 22.9 mmol/L (21.0-32.0); CHLORIDE,CL 103 mmol/L (98-107); GLUCOSE RANDOM 88 mg/dL (74-106); POTASSIUM,K 3.5 mmol/L (3.5-5.1); SODIUM,NA 136 mmol/L (136-148)
--- NOTE | 2019-06-17 17:31 | CR ---
INDICATION: SHORTNESS OF BREATH HISTORY: Shortness of breath. COMPARISON: 09/20/2018. TECHNIQUE: Chest one-view portable upright. FINDINGS: There is a left subclavian Port-A-Cath, with its tip in the SVC. Atelectasis at the right lung base, which is stable, with elevation of the right hemidiaphragm. There is no acute airspace disease. There is no pneumothorax. The lateral costophrenic sulci are sharp. Heart size and pulmonary vasculature are within normal limits. IMPRESSION: No acute airspace disease. Dictated by Pillo Dick MD @ 06/17/2019 5:28:56 PM Dictated by: Pillo Dick MD @ 06/17/2019 17:29:24 (Electronically Signed)
--- NOTE | 2019-06-17 18:07 | PCM.HP.2 ---
H&P History of Present Illness - General Date of Service: 06/17/19 Admit Problem/Dx: Admission Diagnosis/Problem Admission Diagnosis/Problem Anemia - History of Present Illness Initial Comments - Free Text/Narative: The patient is a 78 year old male who presents to the ER today with weakness and dyspnea on exertion. The patient is undergoing chemo for pancreatic cancer with mets to the liver. He was diagnosed 1.5 years ago. Last chemo was on Tuesday06/12/19. He states he usually feels weak for a few days after chemo but he should have bounced back by now. He was so weak today he was unable to get from his wheelchair into the bed, his daughter and other family member had to lift him which is not his usual state. He denies fever/chills, chest pain, abdominal pain, nausea/vomiting. He does endorse shortness of breath with exertion and watery non bloody diarrhea for the past few days (3-4 bowel movements daily). Denies recent antibiotic use. In the ER, lab work showed a pancytopenia. WBC of 2.15, ANC 1182, hemoglobin of 7.9 (lowest it has been in the last year), platelet of 126. His creatinine is elevated at 1.5 (baseline 1.1), negative troponin, BNP of 104 (no hx of CHF) , influenza negative. CXR showed no acute cardiopulmonary process. UA and BC pending. - Related Data Allergies/Adverse Reactions: Allergies Allergy/AdvReac Type Severity Reaction Status Date / Time Penicillins Allergy Hives Verified 06/17/19 16:00 Home Medications: Home Meds Ascorbic Acid [Vitamin C] 1,000 mg PO DAILY 01/17/18 [History] Propranolol [Inderal LA] 160 mg PO DAILY 01/17/18 [History] Vitamin A 10,000 unit PO DAILY 01/17/18 [History] atorvaSTATin Calcium [Atorvastatin Calcium] 10 mg PO DAILY 01/17/18 [History] Apixaban [Eliquis] 5 mg PO DAILY 09/17/18 [History] dexAMETHasone [Dexamethasone] 4 mg PO ASDIRECTED 09/17/18 [History] hydroCHLOROthiazide [Hydrochlorothiazide] 50 mg PO DAILY 06/17/19 [History] Past Medical History HEENT History: Reports: Cataract, Impaired Vision Other HEENT History: wears glasses Cardiovascular History: Reports: Blood Clots/VTE/DVT, High Cholesterol, Hypertension Respiratory History: Reports: None Gastrointestinal History: Reports: Colon Polyp Genitourinary History: Reports: Renal Calculus Musculoskeletal History: Reports: Fracture Other Musculoskeletal History: hx of fx left clavicle Neurological History: Reports: Migraines Psychiatric History: Reports: None Endocrine/Metabolic History: Reports: Obesity/BMI 30+ Hematologic History: Reports: None Immunologic History: Reports: None Oncologic (Cancer) History: Reports: Bladder, Pancreatic Dermatologic History: Reports: None - Infectious Disease History Infectious Disease History: Reports: None - Past Surgical History Head Surgeries/Procedures: Reports: None HEENT Surgical History: Reports: Cataract Surgery Cardiovascular Surgical History: Reports: None Respiratory Surgical History: Reports: None GI Surgical History: Reports: Colonoscopy, Other (See Below) Other GI Surgeries/Procedures: placement of biliary stent Male Surgical History: Reports: TURBT-Transurethral Resection of Bladder Tumor Neurological Surgical History: Reports: None Musculoskeletal Surgical History: Reports: None Oncologic Surgical History: Reports: Other (See Below) Other Oncologic Surgeries/Procedures: TURBT Social & Family History - Family History Family Medical History: Noncontributory - Tobacco Use Smoking Status *Q: Never Smoker Second Hand Smoke Exposure: No - Caffeine Use Caffeine Use: Reports: None - Recreational Drug Use Recreational Drug Use: No H&P Review of Systems - Review of Systems: Review Of Systems: See Below General: Reports: No Symptoms HEENT: Reports: No Symptoms Pulmonary: Reports: Shortness of Breath. Denies: Cough Cardiovascular: Reports: Dyspnea on Exertion, Edema. Denies: Chest Pain Gastrointestinal: Reports: Diarrhea. Denies: Abdominal Pain, Black Stool, Bloody Stool, Constipation, Nausea, Vomiting Genitourinary: Reports: No Symptoms Musculoskeletal: Reports: No Symptoms Skin: Reports: No Symptoms Psychiatric: Reports: No Symptoms Neurological: Reports: No Symptoms Hematologic/Lymphatic: Reports: No Symptoms Immunologic: Reports: No Symptoms Exam - Exam Exam: See Below - Vital Signs Vital Signs: Last Vital Signs Temp 98.6 F 06/17/19 16:02 Pulse 72 06/17/19 17:41 Resp 18 06/17/19 17:41 BP 102/66 06/17/19 17:41 Pulse Ox 97 06/17/19 17:41 Weight: 102.058 kg - Exam General: Alert, Oriented, Cooperative HEENT: Conjunctiva Clear. No: Mucosa Moist & [place] Lungs: Clear to Auscultation, Normal Respiratory Effort Cardiovascular: Regular Rate, Regular Rhythm GI/Abdominal Exam: Normal Bowel Sounds, Soft, Non-Tender, No Distention Extremities: Pedal Edema Skin: Warm, Dry, Intact Neuro Extensive - Mental Status: Alert, Oriented x3 Psychiatric: Alert, Normal Affect, Normal Mood - Patient Data Lab Results Last 24 hrs: Laboratory Results - last 24 hr 06/17/19 06/17/19 06/17/19 Range/Units 14:10 16:10 16:10 WBC 2.15 L (4.0-11.0) K/uL RBC 2.96 L (4.50-5.90) M/uL Hgb 7.9 L (13.0-17.0) g/dL Hct 25.7 L (38.0-50.0) % MCV 86.8 (80.0-98.0) fL MCH 26.7 L (27.0-32.0) pg MCHC 30.7 L (31.0-37.0) g/dL RDW Std Deviation 64.7 H (28.0-62.0) fl RDW Coeff of Arnaud 21 H (11.0-15.0) % Plt Count 126 L (150-400) K/uL MPV 9.50 (7.40-12.00) fL Add Manual Diff YES Neutrophils % (Manual) 47 L (48.0-80.0) % Band Neutrophils % 8 % Lymphocytes % (Manual) 22 (16.0-40.0) % Monocytes % (Manual) 18 H (0.0-15.0) % Metamyelocytes % 1 % Myelocytes % 4 % Nucleated RBC % 4.5 /100WBC Absolute Seg Neuts 1.0 L (1.4-5.7) Band Neutrophils # 0.2 Lymphocytes # (Manual) 0.5 L (0.6-2.4) Monocytes # (Manual) 0.4 (0.0-0.8) Absolute Metamyelocyte 0 Absolute Myelocytes 0.1 Nucleated RBCs # 0 K/uL Poikilocytosis 2+ MODERATE Helmet Cells 1+ SLIGHT Elliptocytes 1+ SLIGHT INR 1.40 Lactate (0.20-2.00) mmol/L Sodium 136 (136-148) mmol/L Potassium 3.5 (3.5-5.1) mmol/L Chloride 103 (98-107) mmol/L Carbon Dioxide 22.9 (21.0-32.0) mmol/L BUN 18 (7.0-18.0) mg/dL Creatinine 1.5 H (0.8-1.3) mg/dL Est Cr Clr Drug Dosing 47.35 mL/min Estimated GFR (MDRD) 45.5 ml/min Glucose 88 (74-106) mg/dL Calcium 7.2 L (8.5-10.1) mg/dL Total Bilirubin 1.3 H (0.2-1.0) mg/dL AST 42 H (15-37) IU/L ALT 38 (14-63) IU/L Alkaline Phosphatase 103 (46-116) U/L Troponin I < 0.050 (0.000-0.056) ng/mL B-Natriuretic Peptide (<100) PG/ML Total Protein 4.6 L (6.4-8.2) g/dL Albumin 2.1 L (3.4-5.0) g/dL Globulin 2.5 L (2.6-4.0) g/dL Albumin/Globulin Ratio 0.8 L (0.9-1.6) 06/17/19 06/17/19 Range/Units 16:10 16:10 WBC (4.0-11.0) K/uL RBC (4.50-5.90) M/uL Hgb (13.0-17.0) g/dL Hct (38.0-50.0) % MCV (80.0-98.0) fL MCH (27.0-32.0) pg MCHC (31.0-37.0) g/dL RDW Std Deviation (28.0-62.0) fl RDW Coeff of Arnaud (11.0-15.0) % Plt Count (150-400) K/uL MPV (7.40-12.00) fL Add Manual Diff Neutrophils % (Manual) (48.0-80.0) % Band Neutrophils % % Lymphocytes % (Manual) (16.0-40.0) % Monocytes % (Manual) (0.0-15.0) % Metamyelocytes % % Myelocytes % % Nucleated RBC % /100WBC Absolute Seg Neuts (1.4-5.7) Band Neutrophils # Lymphocytes # (Manual) (0.6-2.4) Monocytes # (Manual) (0.0-0.8) Absolute Metamyelocyte Absolute Myelocytes Nucleated RBCs # K/uL Poikilocytosis Helmet Cells Elliptocytes INR Lactate 1.4 (0.20-2.00) mmol/L Sodium (136-148) mmol/L Potassium (3.5-5.1) mmol/L Chloride (98-107) mmol/L Carbon Dioxide (21.0-32.0) mmol/L BUN (7.0-18.0) mg/dL Creatinine (0.8-1.3) mg/dL Est Cr Clr Drug Dosing mL/min Estimated GFR (MDRD) ml/min Glucose (74-106) mg/dL Calcium (8.5-10.1) mg/dL Total Bilirubin (0.2-1.0) mg/dL AST (15-37) IU/L ALT (14-63) IU/L Alkaline Phosphatase (46-116) U/L Troponin I (0.000-0.056) ng/mL B-Natriuretic Peptide 104 H (<100) PG/ML Total Protein (6.4-8.2) g/dL Albumin (3.4-5.0) g/dL Globulin (2.6-4.0) g/dL Albumin/Globulin Ratio (0.9-1.6) Result Diagrams: 06/17/19 14:10 06/17/19 16:10 Wilmer Results Last 24 hrs: Microbiology 06/17/19 16:44 Influenza Type A Antigen Screen - Final Nasopharyngeal Swab NEGATIVE INFLUENZA A VIRUS AG REFERENCE RANGE: NEGATIVE Influenza Type B Antigen Screen - Final NEGATIVE INFLUENZA B VIRUS AG REFERENCE RANGE: NEGATIVE Problem List Initiated/Reviewed/Updated: Yes Orders Last 24hrs: Active Orders 24 hr Category Date Time Status Admission Status [Patient Status] [ADT] Stat ADT 06/17/19 17:56 Active EKG Documentation Completion [RC] STAT Care 06/17/19 16:08 Active CULTURE BLOOD [BC] Stat Lab 06/17/19 16:10 Received CULTURE BLOOD [BC] Stat Lab 06/17/19 16:40 Received TYPE AND SCREEN [BBK] Stat Lab 06/17/19 17:27 Ordered UA RFX WILMER AND CULT IF INDIC [URIN] Stat Lab 06/17/19 16:07 Ordered Sodium Chloride 0.9% [Saline Flush] Med 06/17/19 16:08 Active 10 ml FLUSH ASDIRECTED PRN Sodium Chloride 0.9% [Saline Flush] Med 06/17/19 16:08 Active 2.5 ml FLUSH ASDIRECTED PRN Blood Culture x2 Reflex Set [OM.PC] Stat Oth 06/17/19 16:16 Ordered Saline Lock Insert [OM.PC] Stat Oth 06/17/19 16:08 Ordered Medication Orders Sodium Chloride (Saline Flush) 10 ml FLUSH ASDIRECTED PRN PRN Reason: Keep Vein Open Sodium Chloride (Saline Flush) 2.5 ml FLUSH ASDIRECTED PRN PRN Reason: Keep Vein Open Assessment/Plan Comment:: 1. Admit for observation 2. Code Status- DNR/DNI 3. Vitals per routine 4. I/Os per routine 5. Diet- regular 6. DVT prophylaxis on Eliquis 7. Symptomatic anemia with weakness and SOB- hemoglobin of 7.9, will transfuse 2 PRBCs. Monitor on telemetry 8. Pancytopenia secondary chemotherapy- monitor 9. BRANDO secondary to dehydration- will hydrate with IVF 10. Diarrhea- obtain stool studies 11. Chronic conditions- HTN, Hyperlipidemia, pancreatic cancer with mets to liver- continue home meds.
[2019-06-17] MEDS ORDERED: Ondansetron 4 MG/2 ML SDV IVPUSH PRN (18:13)
[2019-06-17] MEDS ORDERED: Acetaminophen 325 MG Tab PO PRN (18:13)
[2019-06-17] MEDS ORDERED: Dexamethasone 4 MG Tab PO SCH (18:15)
[2019-06-17] MEDS: Sodium Chloride 0.9% 1,000 ML IV SCH (18:33)
[2019-06-18] MEDS ORDERED: Non-Formulary Medication 1 Each (Ascorbic Acid [Vitamin C] 1,000 MG) PO SCH (09:00)
[2019-06-18] MEDS ORDERED: PROPRANOLOL 160 MG PO SCH (09:00)
[2019-06-18] MEDS ORDERED: VITAMIN A 10000 UNIT PO SCH (09:00)
[2019-06-18] MEDS ORDERED: Non-Formulary Medication 1 Each (Hydrochlorothiazide [Hydrochlorothiazide] 50 MG) PO SCH (09:00)
[2019-06-18] MEDS ORDERED: Hydrochlorothiazide 25 MG Tab PO SCH (09:10)
[2019-06-18] MEDS ORDERED: Ascorbic Acid 500 MG Tab PO SCH (09:10)
[2019-06-18] MEDS ORDERED: Propranolol 60 MG Cap.ER PO SCH (09:11)
[2019-06-18] MEDS ORDERED: Propranolol 80 MG Cap.ER PO SCH (09:31)
[2019-06-18] MEDS: Potassium Chloride 20 MEQ Tab.ER PO SCH ×2 (09:51→13:00)
[2019-06-18] MEDS: atorvaSTATin 10 MG Tab PO SCH (09:52)
[2019-06-18] MEDS: Apixaban 5 MG Tab PO SCH (09:54)
[2019-06-18] MEDS: Ascorbic Acid 500 MG Tab PO SCH (10:00)
[2019-06-18] MEDS: Hydrochlorothiazide 25 MG Tab PO SCH (10:01)
[2019-06-18] MEDS: Propranolol 80 MG Cap.ER PO SCH (10:02)
[2019-06-18] MEDS: Sodium Chloride 0.9% 1,000 ML IV SCH (10:06)
--- NOTE | 2019-06-18 11:04 | PCM.PN ---
- General Info Date of Service: 06/18/19 - Review of Systems Systems Review Comment:: feeling stronger, but not ready to go home. - Patient Data Vitals - Most Recent: Last Vital Signs Temp 37.0 C 06/18/19 08:00 Pulse 74 06/18/19 08:00 Resp 16 06/18/19 08:00 BP 171/79 H 06/18/19 08:00 Pulse Ox 91 L 06/18/19 08:00 Weight - Most Recent: 102.058 kg I&O - Last 24 Hours: Intake & Output 06/17/19 06/18/19 06/18/19 22:59 06:59 14:59 Intake Total 9 778 240 Output Total 0 Balance 9 778 240 Lab Results Last 24 Hours: Laboratory Results - last 24 hr 06/17/19 06/17/19 06/17/19 Range/Units 14:10 16:10 16:10 WBC 2.15 L (4.0-11.0) K/uL RBC 2.96 L (4.50-5.90) M/uL Hgb 7.9 L (13.0-17.0) g/dL Hct 25.7 L (38.0-50.0) % MCV 86.8 (80.0-98.0) fL MCH 26.7 L (27.0-32.0) pg MCHC 30.7 L (31.0-37.0) g/dL RDW Std Deviation 64.7 H (28.0-62.0) fl RDW Coeff of Arnaud 21 H (11.0-15.0) % Plt Count 126 L (150-400) K/uL MPV 9.50 (7.40-12.00) fL Add Manual Diff YES Neutrophils % (Manual) 47 L (48.0-80.0) % Band Neutrophils % 8 % Lymphocytes % (Manual) 22 (16.0-40.0) % Monocytes % (Manual) 18 H (0.0-15.0) % Eosinophils % (Manual) (0.0-7.0) % Metamyelocytes % 1 % Myelocytes % 4 % Nucleated RBC % 4.5 /100WBC Absolute Seg Neuts 1.0 L (1.4-5.7) Band Neutrophils # 0.2 Lymphocytes # (Manual) 0.5 L (0.6-2.4) Monocytes # (Manual) 0.4 (0.0-0.8) Eosinophils # (Manual) (0.0-0.7) Absolute Metamyelocyte 0 Absolute Myelocytes 0.1 Nucleated RBCs % Nucleated RBCs # 0 K/uL Poikilocytosis 2+ MODERATE Helmet Cells 1+ SLIGHT Elliptocytes 1+ SLIGHT INR 1.40 Lactate (0.20-2.00) mmol/L Sodium 136 (136-148) mmol/L Potassium 3.5 (3.5-5.1) mmol/L Chloride 103 (98-107) mmol/L Carbon Dioxide 22.9 (21.0-32.0) mmol/L BUN 18 (7.0-18.0) mg/dL Creatinine 1.5 H (0.8-1.3) mg/dL Est Cr Clr Drug Dosing 47.35 mL/min Estimated GFR (MDRD) 45.5 ml/min Glucose 88 (74-106) mg/dL Calcium 7.2 L (8.5-10.1) mg/dL Total Bilirubin 1.3 H (0.2-1.0) mg/dL AST 42 H (15-37) IU/L ALT 38 (14-63) IU/L Alkaline Phosphatase 103 (46-116) U/L Troponin I < 0.050 (0.000-0.056) ng/mL B-Natriuretic Peptide (<100) PG/ML Total Protein 4.6 L (6.4-8.2) g/dL Albumin 2.1 L (3.4-5.0) g/dL Globulin 2.5 L (2.6-4.0) g/dL Albumin/Globulin Ratio 0.8 L (0.9-1.6) Blood Type Antibody Screen Crossmatch 06/17/19 06/17/19 06/17/19 Range/Units 16:10 16:10 17:41 WBC (4.0-11.0) K/uL RBC (4.50-5.90) M/uL Hgb (13.0-17.0) g/dL Hct (38.0-50.0) % MCV (80.0-98.0) fL MCH (27.0-32.0) pg MCHC (31.0-37.0) g/dL RDW Std Deviation (28.0-62.0) fl RDW Coeff of Arnaud (11.0-15.0) % Plt Count (150-400) K/uL MPV (7.40-12.00) fL Add Manual Diff Neutrophils % (Manual) (48.0-80.0) % Band Neutrophils % % Lymphocytes % (Manual) (16.0-40.0) % Monocytes % (Manual) (0.0-15.0) % Eosinophils % (Manual) (0.0-7.0) % Metamyelocytes % % Myelocytes % % Nucleated RBC % /100WBC Absolute Seg Neuts (1.4-5.7) Band Neutrophils # Lymphocytes # (Manual) (0.6-2.4) Monocytes # (Manual) (0.0-0.8) Eosinophils # (Manual) (0.0-0.7) Absolute Metamyelocyte Absolute Myelocytes Nucleated RBCs % Nucleated RBCs # K/uL Poikilocytosis Helmet Cells Elliptocytes INR Lactate 1.4 (0.20-2.00) mmol/L Sodium (136-148) mmol/L Potassium (3.5-5.1) mmol/L Chloride (98-107) mmol/L Carbon Dioxide (21.0-32.0) mmol/L BUN (7.0-18.0) mg/dL Creatinine (0.8-1.3) mg/dL Est Cr Clr Drug Dosing mL/min Estimated GFR (MDRD) ml/min Glucose (74-106) mg/dL Calcium (8.5-10.1) mg/dL Total Bilirubin (0.2-1.0) mg/dL AST (15-37) IU/L ALT (14-63) IU/L Alkaline Phosphatase (46-116) U/L Troponin I (0.000-0.056) ng/mL B-Natriuretic Peptide 104 H (<100) PG/ML Total Protein (6.4-8.2) g/dL Albumin (3.4-5.0) g/dL Globulin (2.6-4.0) g/dL Albumin/Globulin Ratio (0.9-1.6) Blood Type A POSITIVE Antibody Screen NEGATIVE Crossmatch See Detail 06/18/19 06/18/19 Range/Units 06:24 06:24 WBC 2.85 L (4.0-11.0) K/uL RBC 3.34 L (4.50-5.90) M/uL Hgb 9.4 L (13.0-17.0) g/dL Hct 29.0 L (38.0-50.0) % MCV 86.8 (80.0-98.0) fL MCH 28.1 (27.0-32.0) pg MCHC 32.4 (31.0-37.0) g/dL RDW Std Deviation 59.3 (28.0-62.0) fl RDW Coeff of Arnaud 19 H (11.0-15.0) % Plt Count 142 L (150-400) K/uL MPV 9.30 (7.40-12.00) fL Add Manual Diff YES Neutrophils % (Manual) 42 L (48.0-80.0) % Band Neutrophils % 1 % Lymphocytes % (Manual) 26 (16.0-40.0) % Monocytes % (Manual) 23 H (0.0-15.0) % Eosinophils % (Manual) 2 (0.0-7.0) % Metamyelocytes % 1 % Myelocytes % 5 % Nucleated RBC % 3.6 /100WBC Absolute Seg Neuts 1.2 L (1.4-5.7) Band Neutrophils # 0 Lymphocytes # (Manual) 0.7 (0.6-2.4) Monocytes # (Manual) 0.7 (0.0-0.8) Eosinophils # (Manual) 0.1 (0.0-0.7) Absolute Metamyelocyte 0 Absolute Myelocytes 0.1 Nucleated RBCs 4 % Nucleated RBCs # 0 K/uL Poikilocytosis Helmet Cells Elliptocytes INR Lactate (0.20-2.00) mmol/L Sodium 140 (136-148) mmol/L Potassium 3.0 L (3.5-5.1) mmol/L Chloride 105 (98-107) mmol/L Carbon Dioxide 24.0 (21.0-32.0) mmol/L BUN 19 H (7.0-18.0) mg/dL Creatinine 1.5 H (0.8-1.3) mg/dL Est Cr Clr Drug Dosing 47.35 mL/min Estimated GFR (MDRD) 45.5 ml/min Glucose 83 (74-106) mg/dL Calcium 7.0 L (8.5-10.1) mg/dL Total Bilirubin 1.3 H (0.2-1.0) mg/dL AST 37 (15-37) IU/L ALT 35 (14-63) IU/L Alkaline Phosphatase 92 (46-116) U/L Troponin I (0.000-0.056) ng/mL B-Natriuretic Peptide (<100) PG/ML Total Protein 4.4 L (6.4-8.2) g/dL Albumin 1.9 L (3.4-5.0) g/dL Globulin 2.5 L (2.6-4.0) g/dL Albumin/Globulin Ratio 0.8 L (0.9-1.6) Blood Type Antibody Screen Crossmatch [facility] Results Last 24 Hours: Microbiology 06/17/19 16:44 Influenza Type A Antigen Screen - Final Nasopharyngeal Swab NEGATIVE INFLUENZA A VIRUS AG REFERENCE RANGE: NEGATIVE Influenza Type B Antigen Screen - Final NEGATIVE INFLUENZA B VIRUS AG REFERENCE RANGE: NEGATIVE Med Orders - Current: Current Medications Acetaminophen (Tylenol) 650 mg PO Q4H PRN PRN Reason: Pain/Fever Apixaban (Eliquis) 5 mg PO DAILY [facility] Last Admin: 06/18/19 09:54 Dose: 5 mg Ascorbic Acid (Vitamin C) 1,000 mg PO DAILY [facility] Last Admin: 06/18/19 10:00 Dose: 1,000 mg Atorvastatin Calcium (Lipitor) 10 mg PO DAILY [facility] Last Admin: 06/18/19 09:52 Dose: 10 mg Dexamethasone (Dexamethasone) 4 mg PO ASDIRECTED [facility] Hydrochlorothiazide (Hydrochlorothiazide) 50 mg PO DAILY [facility] Last Admin: 06/18/19 10:01 Dose: 50 mg Sodium Chloride (Normal Saline) 1,000 mls @ 125 mls/hr IV ASDIRECTED [facility] Last Admin: 06/18/19 10:06 Dose: 125 mls/hr Non-Formulary Medication (Vitamin A) 10,000 unit PO DAILY [facility] Last Admin: 06/18/19 10:05 Dose: Not Given Ondansetron HCl (Zofran) 4 mg IVPUSH Q4H PRN PRN Reason: Nausea/Vomiting Potassium Chloride (Klor-Con M20) 40 meq PO BID@0900,1200 [facility] Stop: 06/18/19 12:01 Last Admin: 06/18/19 09:51 Dose: 40 meq Propranolol HCl (Inderal La) 160 mg PO DAILY [facility] Last Admin: 06/18/19 10:02 Dose: 160 mg Sodium Chloride (Saline Flush) 10 ml FLUSH ASDIRECTED PRN PRN Reason: Keep Vein Open Sodium Chloride (Saline Flush) 2.5 ml FLUSH ASDIRECTED PRN PRN Reason: Keep Vein Open Discontinued Medications Ascorbic Acid (Vitamin C) 1,000 mg PO DAILY [facility] Hydrochlorothiazide (Hydrochlorothiazide) 50 mg PO DAILY [facility] Non-Formulary Medication (Ascorbic Acid [Vitamin C]) 1,000 mg PO DAILY [facility] Non-Formulary Medication (Hydrochlorothiazide [Hydrochlorothiazide]) 50 mg PO DAILY [facility] Non-Formulary Medication (Propranolol [Inderal La]) 160 mg PO DAILY [facility] Propranolol HCl (Inderal La) 160 mg PO DAILY [facility] Propranolol HCl (Inderal La) 160 mg PO DAILY [facility] - Exam General: Alert, Oriented Lungs: Clear to Auscultation, Normal Respiratory Effort Cardiovascular: Regular Rate, Regular Rhythm GI/Abdominal Exam: Soft, Non-Tender Extremities: No Pedal Edema Skin: Warm, Dry, Intact - Problem List Review Problem List Initiated/Reviewed/Updated: Yes - My Orders Last 24 Hours: My Active Orders 06/19/19 05:11 BASIC METABOLIC PANEL,BMP [CHEM] AM CBC WITH AUTO DIFF [HEME] AM - Plan Plan:: 78 yo male admitted for dehydration,diarrhea, and generalized weakness secondary to chemotherapy. Patient has been transfused two units of blood due to concerns for symptomatic anemia. If patient continues to improve will anticipate discharge home tomorrow.
[2019-06-18] MEDS ORDERED: Loperamide 2 MG Cap PO PRN (14:28)
[2019-06-19 07:08] LABS: CARBON DIOXIDE,CO2 22.1 mmol/L (21.0-32.0); POTASSIUM,K 3.2 mmol/L (3.5-5.1)
[2019-06-19] MEDS ORDERED: BETA CAROTENE 25000 UNIT PO SCH (09:00)
[2019-06-19] MEDS: Ascorbic Acid 500 MG Tab PO SCH (09:30)
[2019-06-19] MEDS: Hydrochlorothiazide 25 MG Tab PO SCH (09:30)
[2019-06-19] MEDS: Apixaban 5 MG Tab PO SCH (09:30)
[2019-06-19] MEDS: atorvaSTATin 10 MG Tab PO SCH (09:31)
[2019-06-19] MEDS: Propranolol 80 MG Cap.ER PO SCH (09:31)
--- NOTE | 2019-06-19 11:51 | PCM.DCSUM1 ---
Discharge Summary - Discharge Data Discharge Date: 06/19/19 Discharge Disposition: Home, Self-Care 01 Condition: Good - Referral to Home Health Primary Care Physician: PCP Unknown - Patient Summary/Data Hospital Course: The patient is a 78 year old male with pmh of pancreatic cancer who was admitted for weakness, dehydration and diarrhea secondary to chemotherapy. Work up included lab work showed a pancytopenia. WBC of 2.15, ANC 1182, hemoglobin of 7.9, platelet of 126. His creatinine is elevated at 1.5, negative troponin, BNP of 104, influenza negative. Stool studies were negative. CXR showed no acute cardiopulmonary process. Patient was transfused two units of blood with Hgb at discharge of 8.8. He was treated with IV fluids , antiemetics and Imodium. Patient did have improvement in his strength and today is requesting discharge. He is to have follow up with [facility]. - Patient Instructions Diet: Usual Diet as Tolerated Activity: As Tolerated - Discharge Plan Home Medications: Home Meds Ascorbic Acid [Vitamin C] 1,000 mg PO DAILY 01/17/18 [History] Propranolol [Inderal LA] 160 mg PO DAILY 01/17/18 [History] Vitamin A 10,000 unit PO DAILY 01/17/18 [History] atorvaSTATin Calcium [Atorvastatin Calcium] 10 mg PO DAILY 01/17/18 [History] Apixaban [Eliquis] 5 mg PO DAILY 09/17/18 [History] dexAMETHasone [Dexamethasone] 4 mg PO ASDIRECTED 09/17/18 [History] hydroCHLOROthiazide [Hydrochlorothiazide] 50 mg PO DAILY 06/17/19 [History] Beta-Carotene [Beta Carotene] 25,000 unit PO DAILY 06/18/19 [History] Referrals: [facility] [Outside] PCP,Unknown [Primary Care Provider] - - Discharge Summary/Plan Comment DC Time >30 min.: No - Patient Data Vitals - Most Recent: Last Vital Signs Temp 36.8 C 06/19/19 07:00 Pulse 82 06/19/19 07:00 Resp 16 06/19/19 07:00 BP 127/88 06/19/19 07:00 Pulse Ox 95 06/19/19 07:00 Weight - Most Recent: 102.058 kg I&O - Last 24 hours: Intake & Output 06/18/19 06/19/19 06/19/19 22:59 06:59 14:59 Intake Total 620 240 Output Total 400 Balance 220 240 Lab Results - Last 24 hrs: Laboratory Results - last 24 hr 06/19/19 06/19/19 Range/Units 06:05 06:05 WBC 3.74 L (4.0-11.0) K/uL RBC 3.23 L (4.50-5.90) M/uL Hgb 8.8 L (13.0-17.0) g/dL Hct 28.2 L (38.0-50.0) % MCV 87.3 (80.0-98.0) fL MCH 27.2 (27.0-32.0) pg MCHC 31.2 (31.0-37.0) g/dL RDW Std Deviation 63.0 H (28.0-62.0) fl RDW Coeff of Arnaud 20 H (11.0-15.0) % Plt Count 228 (150-400) K/uL MPV 9.80 (7.40-12.00) fL Add Manual Diff YES Neutrophils % (Manual) 53 (48.0-80.0) % Band Neutrophils % 1 % Lymphocytes % (Manual) 23 (16.0-40.0) % Monocytes % (Manual) 22 H (0.0-15.0) % Eosinophils % (Manual) 1 (0.0-7.0) % Nucleated RBC % 2.7 /100WBC Absolute Seg Neuts 2.0 (1.4-5.7) Band Neutrophils # 0 Lymphocytes # (Manual) 0.9 (0.6-2.4) Monocytes # (Manual) 0.8 (0.0-0.8) Eosinophils # (Manual) 0.0 (0.0-0.7) Nucleated RBCs # 0 K/uL Sodium 142 (136-148) mmol/L Potassium 3.2 L (3.5-5.1) mmol/L Chloride 109 H (98-107) mmol/L Carbon Dioxide 22.1 (21.0-32.0) mmol/L BUN 17 (7.0-18.0) mg/dL Creatinine 1.3 (0.8-1.3) mg/dL Est Cr Clr Drug Dosing 54.63 mL/min Estimated GFR (MDRD) 53.7 ml/min Glucose 91 (74-106) mg/dL Calcium 6.9 L (8.5-10.1) mg/dL MIKO Results - Last 24 hrs: Microbiology 06/18/19 10:30 Campylobacter Antigen Assay - Final Stool / Feces NEGATIVE CAMPYLOBACTER AG REFERENCE RANGE: NEGATIVE Shiga Toxin I - Final NEGATIVE FOR SHIGA TOXIN 1 REFERENCE RANGE: NEGATIVE Shiga Toxin II - Final NEGATIVE FOR SHIGA TOXIN 2 REFERENCE RANGE: NEGATIVE 06/17/19 16:40 Aerobic Blood Culture - Preliminary Blood - Venous - Lab Draw NO GROWTH AFTER 1 DAY Anaerobic Blood Culture - Preliminary NO GROWTH AFTER 1 DAY 06/17/19 16:10 Aerobic Blood Culture - Preliminary Blood - Venous NO GROWTH AFTER 1 DAY Anaerobic Blood Culture - Preliminary NO GROWTH AFTER 1 DAY 06/18/19 10:30 Clostridium difficile Toxin A & B - Final Stool / Feces Negative for C.Diff Toxin/AG REFERENCE RANGE: NEGATIVE Med Orders - Current: Current Medications Acetaminophen (Tylenol) 650 mg PO Q4H PRN PRN Reason: Pain/Fever Apixaban (Eliquis) 5 mg PO DAILY [facility] Last Admin: 06/19/19 09:30 Dose: 5 mg Ascorbic Acid (Vitamin C) 1,000 mg PO DAILY [facility] Last Admin: 06/19/19 09:30 Dose: 1,000 mg Atorvastatin Calcium (Lipitor) 10 mg PO DAILY [facility] Last Admin: 06/19/19 09:31 Dose: 10 mg Dexamethasone (Dexamethasone) 4 mg PO ASDIRECTED [facility] Hydrochlorothiazide (Hydrochlorothiazide) 50 mg PO DAILY [facility] Last Admin: 06/19/19 09:30 Dose: 50 mg Loperamide HCl (Imodium) 2 mg PO Q6H PRN PRN Reason: Diarrhea Last Admin: 06/18/19 14:56 Dose: 2 mg Ondansetron HCl (Zofran) 4 mg IVPUSH Q4H PRN PRN Reason: Nausea/Vomiting Beta-Carotene 25,000 (Units) 1 each PO DAILY [facility] Last Admin: 06/19/19 09:31 Dose: 1 each Propranolol HCl (Inderal La) 160 mg PO DAILY [facility] Last Admin: 06/19/19 09:31 Dose: 160 mg Sodium Chloride (Saline Flush) 10 ml FLUSH ASDIRECTED PRN PRN Reason: Keep Vein Open Sodium Chloride (Saline Flush) 2.5 ml FLUSH ASDIRECTED PRN PRN Reason: Keep Vein Open Discontinued Medications Ascorbic Acid (Vitamin C) 1,000 mg PO DAILY [facility] Hydrochlorothiazide (Hydrochlorothiazide) 50 mg PO DAILY [facility] Sodium Chloride (Normal Saline) 1,000 mls @ 125 mls/hr IV ASDIRECTED [facility] Last Admin: 06/18/19 10:06 Dose: 125 mls/hr Non-Formulary Medication (Ascorbic Acid [Vitamin C]) 1,000 mg PO DAILY [facility] Last Admin: 06/18/19 11:39 Dose: Not Given Non-Formulary Medication (Hydrochlorothiazide [Hydrochlorothiazide]) 50 mg PO DAILY [facility] Last Admin: 06/18/19 11:40 Dose: Not Given Non-Formulary Medication (Propranolol [Inderal La]) 160 mg PO DAILY [facility] Last Admin: 06/18/19 11:40 Dose: Not Given Non-Formulary Medication (Vitamin A) 10,000 unit PO DAILY [facility] Last Admin: 06/18/19 10:05 Dose: Not Given Potassium Chloride (Klor-Con M20) 40 meq PO BID@0900,1200 [facility] Stop: 06/18/19 12:01 Last Admin: 06/18/19 13:00 Dose: 40 meq Propranolol HCl (Inderal La) 160 mg PO DAILY [facility] Propranolol HCl (Inderal La) 160 mg PO DAILY [facility]
== END 2019-06-19 13:58 | disposition home or self-care (01) ==
LOC: MW.ED 15:59 → MW.MS 17:56 → MW.ED 18:10
PROVIDERS: ADMIT Internal Medicine; ATTEND Internal Medicine
DX: D64.9 Anemia, unspecified (principal); R06.02 Shortness of breath; D61.810 Antineoplastic chemotherapy induced pancytopenia; N17.9 Acute kidney failure, unspecified; E86.0 Dehydration; R19.7 Diarrhea, unspecified; I10 Essential (primary) hypertension; E78.5 Hyperlipidemia, unspecified; C25.9 Malignant neoplasm of pancreas, unspecified; C78.7 Secondary malignant neoplasm of liver and intrahepatic bile duct; E78.00 Pure hypercholesterolemia, unspecified; E66.9 Obesity, unspecified; Z88.0 Allergy status to penicillin; Z79.899 Other long term (current) drug therapy; Z79.01 Long term (current) use of anticoagulants
CPT/HCPCS: 36415; 36430; 71045; 80048; 80053; 81001; 83605; 83880; 84484; 85025; 85610; 86850; 86900; 86901; 86920; 86921; 86922; 87040; 87046; 87324; 87804; 87899; 93005; 99285; A9270; G0378; J1642; J7040; P9016; 99284

== ENCOUNTER 2019-09-05 11:07 | Inpatient (IN) | payer MEDICARE, BC ==
[2019-09-05] MEDS ORDERED: Acetaminophen 325 MG Tab PO PRN (12:00)
[2019-09-05] MEDS ORDERED: Ondansetron 4 MG Tab.DIS PO PRN (12:00)
[2019-09-05] MEDS ORDERED: Ondansetron 4 MG/2 ML SDV IVPUSH PRN (12:00)
[2019-09-05] MEDS ORDERED: Sodium Chloride 0.9% 1,000 ML IV ONE (12:12)
[2019-09-05] MEDS ORDERED: Potassium Chloride 20 MEQ Tab.ER PO ONE (12:14)
--- NOTE | 2019-09-05 12:22 | PCM.HP.2 ---
H&P History of Present Illness - General Date of Service: 09/05/19 Admit Problem/Dx: Admission Diagnosis/Problem Admission Diagnosis/Problem Dehydration Source of Information: Patient History Limitations: Reports: No Limitations - History of Present Illness Initial Comments - Free Text/Narative: 79-year-old male complains of abdominal cramping, decreased appetite and watery diarrhea for the past 1 week. He has a PMH of pancreatic cancer with liver mets , DVT, HTN and hyperlipidemia. He has chemotherapy every 2 weeks for his pancreatic cancer. Earlier today, he was at an oncology appointment with Dr. Edward and was to have a chemotherapy infusion, however, this was cancelled as he was not feeling well. Patient was then directly admitted by Dr. Raymond for further evaluation. Patient denies feeling weak, fevers, blurry vision, headache , sore throat, cough, shortness of breath, chest pain, nausea, vomiting, blood in stool or blood in urine. He reports occasional chills and chronic numbness and tingling in his hands since starting chemotherapy. Patient was diagnosed with pancreatic cancer in December 2017 and has been on chemotherapy since January 2018. Non-smoker, no alcohol use and no illicit drug use. Initial labwork showed: WBC count 3.48, Hgb 9.7, platelets 480, potassium 2.6 and creatinine 2.5. - Related Data Allergies/Adverse Reactions: Allergies Allergy/AdvReac Type Severity Reaction Status Date / Time Penicillins Allergy Hives Verified 09/05/19 11:47 Home Medications: Home Meds Ascorbic Acid [Vitamin C] 1,000 mg PO DAILY 01/17/18 [History] Propranolol [Inderal LA] 160 mg PO DAILY 01/17/18 [History] Vitamin A 10,000 unit PO DAILY 01/17/18 [History] atorvaSTATin Calcium [Atorvastatin Calcium] 10 mg PO DAILY 01/17/18 [History] Apixaban [Eliquis] 5 mg PO DAILY 09/17/18 [History] dexAMETHasone [Dexamethasone] 4 mg PO ASDIRECTED 09/17/18 [History] hydroCHLOROthiazide [Hydrochlorothiazide] 50 mg PO DAILY 06/17/19 [History] Beta-Carotene [Beta Carotene] 25,000 unit PO DAILY 06/18/19 [History] Past Medical History HEENT History: Reports: Cataract, Impaired Vision Other HEENT History: wears glasses Cardiovascular History: Reports: Blood Clots/VTE/DVT, High Cholesterol, Hypertension Respiratory History: Reports: None Gastrointestinal History: Reports: Colon Polyp Genitourinary History: Reports: Renal Calculus Musculoskeletal History: Reports: Fracture Other Musculoskeletal History: hx of fx left clavicle Neurological History: Reports: Migraines Psychiatric History: Reports: None Endocrine/Metabolic History: Reports: Obesity/BMI 30+ Hematologic History: Reports: None Immunologic History: Reports: None Oncologic (Cancer) History: Reports: Bladder, Pancreatic Dermatologic History: Reports: None - Infectious Disease History Infectious Disease History: Reports: Chicken Pox - Past Surgical History Head Surgeries/Procedures: Reports: None HEENT Surgical History: Reports: Cataract Surgery Cardiovascular Surgical History: Reports: None Respiratory Surgical History: Reports: None GI Surgical History: Reports: Colonoscopy, Other (See Below) Other GI Surgeries/Procedures: placement of biliary stent Male Surgical History: Reports: TURBT-Transurethral Resection of Bladder Tumor Neurological Surgical History: Reports: None Musculoskeletal Surgical History: Reports: None Oncologic Surgical History: Reports: Other (See Below) Other Oncologic Surgeries/Procedures: TURBT Social & Family History - Family History Family Medical History: Noncontributory Cardiac: Reports: CAD Other Cardiac Family History: mother Musculoskeletal: Reports: Gout Psychiatric: Reports: None Oncologic: Reports: Bladder, Colon - Tobacco Use Smoking Status *Q: Former Smoker Used Tobacco, but Quit: Yes Month/Year Tobacco Last Used: 01/1980 Second Hand Smoke Exposure: No - Caffeine Use Caffeine Use: Reports: Coffee - Recreational Drug Use Recreational Drug Use: No H&P Review of Systems - Review of Systems: Review Of Systems: Comprehensive ROS is negative, except as noted in HPI. Exam - Exam Exam: See Below - Vital Signs Vital Signs: Last Vital Signs Temp 98.6 F 09/05/19 12:00 Pulse 73 09/05/19 12:00 Resp 17 09/05/19 12:00 BP 101/65 09/05/19 12:00 Pulse Ox 99 09/05/19 12:00 Weight: 197 lb 5.019 oz - Exam General: Alert, Oriented, Cooperative, Other (NAD) HEENT: Conjunctiva Clear, EOMI, Hearing Intact, Mucosa Moist & [place], Posterior Pharynx Clear Neck: Supple, Trachea Midline Lungs: Clear to Auscultation, Normal Respiratory Effort Cardiovascular: Regular Rate, Regular Rhythm GI/Abdominal Exam: Normal Bowel Sounds, Soft, Non-Tender, No Distention Extremities: Normal Inspection, Other (mild non-pitting edema bilaterally.) Peripheral Pulses: 1+: Posterior Tibial (L), Posterior Tibial (R) Skin: Warm, Dry, Intact Neurological: Cranial Nerves Intact, Strength Equal Bilateral, Normal Speech, Normal Tone Neuro Extensive - Mental Status: Alert, Oriented x3, Normal Mood/Affect Sepsis Event Note - Focused Exam Vital Signs: Vital Signs Temp Pulse Resp BP Pulse Ox 09/05/19 12:00 98.6 F 73 17 101/65 99 Date Exam was Performed: 09/05/19 Time Exam was Performed: 12:16 Problem List Initiated/Reviewed/Updated: Yes Orders Last 24hrs: Active Orders 24 hr Category Date Time Status Patient Status [ADT] Routine ADT 09/05/19 12:00 Active Oxygen Therapy [RC] PRN Care 09/05/19 12:00 Active Up ad Rand [RC] ASDIRECTED Care 09/05/19 12:00 Active VTE/DVT Education [RC] PER UNIT ROUTINE Care 09/05/19 12:00 Active Vital Signs [RC] Q4H Care 09/05/19 12:00 Active Regular Diet [DIET] Diet 09/05/19 Lunch Active C DIFFICILE AG/TOXIN W/REFLEX [RM] Stat Lab 09/05/19 12:05 Ordered CBC WITH AUTO DIFF [HEME] AM Lab 09/06/19 05:11 Ordered COMPREHENSIVE METABOLIC PN,CMP [CHEM] AM Lab 09/06/19 05:11 Ordered CULTURE STOOL + CAMPY+SHIGATOX [RM] Stat Lab 09/05/19 12:04 Ordered MAGNESIUM [CHEM] Routine Lab 09/05/19 08:34 Received OVA & PARASITES BY IMMUNOASSAY [MREF] Stat Lab 09/05/19 12:05 Ordered PHOSPHORUS [CHEM] Routine Lab 09/05/19 08:34 Received UA RFX MIKO AND CULT IF INDIC [URIN] Stat Lab 09/05/19 12:04 Ordered Acetaminophen [Tylenol] Med 09/05/19 12:00 Active 650 mg PO Q4H PRN Heparin Sodium Med 09/05/19 12:00 Active 5,000 units SUBCUT Q8H Ondansetron [Zofran ODT] Med 09/05/19 12:00 Active 4 mg PO Q4H PRN Ondansetron [Zofran] Med 09/05/19 12:00 Active 4 mg IVPUSH Q4H PRN Potassium Chloride Riders [KCL 40 MEQ in Water 100 ML] Med 09/05/19 12:14 Ordered 40 meq Premix Bag 1 bag IV ONETIME Potassium Chloride [Klor-Con M20] Med 09/05/19 12:14 Once 20 meq PO ONETIME ONE Sodium Chloride 0.9% [Normal Saline] 1,000 ml Med 09/05/19 12:12 Ordered IV STAT Sodium Chloride 0.9% [Normal Saline] 1,000 ml Med 09/05/19 12:15 Ordered IV STAT Resuscitation Status Routine Resus Stat 09/05/19 12:00 Ordered Medication Orders Acetaminophen (Tylenol) 650 mg PO Q4H PRN PRN Reason: Pain (Mild 1-3)/fever Heparin Sodium (Porcine) (Heparin Sodium) 5,000 units SUBCUT Q8H [facility] Sodium Chloride (Normal Saline) 1,000 mls @ 999 mls/hr IV STAT ONE Stop: 09/05/19 13:12 Sodium Chloride (Normal Saline) 1,000 mls @ 100 mls/hr IV STAT [facility] Potassium Chloride 40 meq/ (Premix) 100 mls @ 25 mls/hr IV ONETIME ONE Stop: 09/05/19 16:13 Ondansetron HCl (Zofran Odt) 4 mg PO Q4H PRN PRN Reason: nausea, able to take PO Ondansetron HCl (Zofran) 4 mg IVPUSH Q4H PRN PRN Reason: Nausea Potassium Chloride (Klor-Con M20) 20 meq PO ONETIME ONE Stop: 09/05/19 12:15 Assessment/Plan Comment:: Assessment and Plan: 1. Diarrhea: Will order stool studies. 2. BRANDO likely secondary to dehydration: Will give IV 1L NS bolus and then maintenance IV NS 100 cc/hr. Will monitor. 3. Thrombocytosis: Will monitor. 4. Hypokalemia: Will replete with IV 40 mEq KCl and PO 20 mEq KCl. Will recheck with AM labs. Will check magnesium and phosphorus. 5. Pancreatic cancer with liver mets on chemotherapy: Patient gets chemotherapy infusion every 2 weeks. 6. Past medical history of DVT, HTN and hyperlipidemia: Will continue home medications except will hold Apixaban for now and start heparin. 7. VTE prophylaxis: Heparin 5,000 units subcut q8h.
[2019-09-05] MEDS: Heparin Sodium 5,000 Units/ML Vial SUBCUT SCH ×2 (12:24→19:49)
[2019-09-05] MEDS ORDERED: POTASSIUM CHLORIDE RIDERS IV ONE (12:30)
[2019-09-05] MEDS ORDERED: SODIUM CHLORIDE 0.9% IV ONE (12:30)
[2019-09-05] MEDS ORDERED: Magnesium Sulfate/Water 2 GM in Premix Bag 1 BAG IV ONE (12:30)
[2019-09-05] MEDS: Sodium Chloride 0.9% 1,000 ML IV SCH (14:02)
[2019-09-05] MEDS: Propranolol 80 MG Cap.ER PO SCH (20:00)
[2019-09-06] MEDS: Sodium Chloride 0.9% 1,000 ML IV SCH ×2 (03:00→14:42)
[2019-09-06] MEDS: Heparin Sodium 5,000 Units/ML Vial SUBCUT SCH ×3 (04:16→20:05)
[2019-09-06 06:54] LABS: CARBON DIOXIDE,CO2 19.7 mmol/L (21.0-32.0); POTASSIUM,K 2.7 mmol/L (3.5-5.1)
--- NOTE | 2019-09-06 08:48 | PCM.PN ---
- General Info Date of Service: 09/06/19 Subjective Update: Reports 2 loose bowel movements yesterday. Decreased appetite but no nausea or vomiting. Tolerating oral diet. - Patient Data Vitals - Most Recent: Last Vital Signs Temp 98.6 F 09/06/19 08:00 Pulse 76 09/06/19 08:00 Resp 18 09/06/19 08:00 BP 120/63 09/06/19 08:00 Pulse Ox 95 09/06/19 08:00 Weight - Most Recent: 197 lb 5.019 oz I&O - Last 24 Hours: Intake & Output 09/05/19 09/06/19 09/06/19 22:59 06:59 14:59 Intake Total 543 1438 Output Total 300 Balance 243 1438 Lab Results Last 24 Hours: Laboratory Results - last 24 hr 09/05/19 09/05/19 09/06/19 Range/Units 08:34 19:00 06:08 WBC 3.15 L (4.0-11.0) K/uL RBC 2.99 L (4.50-5.90) M/uL Hgb 7.7 L (13.0-17.0) g/dL Hct 24.8 L (38.0-50.0) % MCV 82.9 (80.0-98.0) fL MCH 25.8 L (27.0-32.0) pg MCHC 31.0 (31.0-37.0) g/dL RDW Std Deviation 53.8 (28.0-62.0) fl RDW Coeff of Arnaud 18 H (11.0-15.0) % Plt Count 428 H (150-400) K/uL MPV 8.70 (7.40-12.00) fL Neut % (Auto) 39.3 L (48.0-80.0) % Lymph % (Auto) 39.4 (16.0-40.0) % Frio % (Auto) 19.7 H (0.0-15.0) % Eos % (Auto) 1.3 (0.0-7.0) % Baso % (Auto) 0.3 (0.0-1.5) % Neut # (Auto) 1.2 L (1.4-5.7) K/uL Lymph # (Auto) 1.2 (0.6-2.4) K/uL Frio # (Auto) 0.6 (0.0-0.8) K/uL Eos # (Auto) 0.0 (0.0-0.7) K/uL Baso # (Auto) 0.0 (0.0-0.1) K/uL Nucleated RBC % 0.7 /100WBC Nucleated RBCs # 0 K/uL Sodium (136-148) mmol/L Potassium (3.5-5.1) mmol/L Chloride (98-107) mmol/L Carbon Dioxide (21.0-32.0) mmol/L BUN (7.0-18.0) mg/dL Creatinine (0.8-1.3) mg/dL Est Cr Clr Drug Dosing mL/min Estimated GFR (MDRD) ml/min Glucose (74-106) mg/dL Calcium (8.5-10.1) mg/dL Phosphorus 3.8 (2.6-4.7) mg/dL Magnesium 1.2 L (1.8-2.4) mg/dL Total Bilirubin (0.2-1.0) mg/dL AST (15-37) IU/L ALT (14-63) IU/L Alkaline Phosphatase (46-116) U/L Total Protein (6.4-8.2) g/dL Albumin (3.4-5.0) g/dL Globulin (2.6-4.0) g/dL Albumin/Globulin Ratio (0.9-1.6) Urine Color YELLOW Urine Appearance CLEAR Urine pH 6.0 (5.0-8.0) Ur Specific [place] 1.025 (1.001-1.035) Urine Protein NEGATIVE (NEGATIVE) mg/dL Urine Glucose (UA) NEGATIVE (NEGATIVE) mg/dL Urine Ketones NEGATIVE (NEGATIVE) mg/dL Urine Occult Blood NEGATIVE (NEGATIVE) Urine Nitrite NEGATIVE (NEGATIVE) Urine Bilirubin SMALL H (NEGATIVE) Urine Ictotest NEGATIVE Urine Urobilinogen 0.2 (<2.0) EU/dL Ur Leukocyte Esterase NEGATIVE (NEGATIVE) 09/06/19 Range/Units 06:08 WBC (4.0-11.0) K/uL RBC (4.50-5.90) M/uL Hgb (13.0-17.0) g/dL Hct (38.0-50.0) % MCV (80.0-98.0) fL MCH (27.0-32.0) pg MCHC (31.0-37.0) g/dL RDW Std Deviation (28.0-62.0) fl RDW Coeff of Arnaud (11.0-15.0) % Plt Count (150-400) K/uL MPV (7.40-12.00) fL Neut % (Auto) (48.0-80.0) % Lymph % (Auto) (16.0-40.0) % Frio % (Auto) (0.0-15.0) % Eos % (Auto) (0.0-7.0) % Baso % (Auto) (0.0-1.5) % Neut # (Auto) (1.4-5.7) K/uL Lymph # (Auto) (0.6-2.4) K/uL Frio # (Auto) (0.0-0.8) K/uL Eos # (Auto) (0.0-0.7) K/uL Baso # (Auto) (0.0-0.1) K/uL Nucleated RBC % /100WBC Nucleated RBCs # K/uL Sodium 140 (136-148) mmol/L Potassium 2.7 L (3.5-5.1) mmol/L Chloride 109 H (98-107) mmol/L Carbon Dioxide 19.7 L (21.0-32.0) mmol/L BUN 26 H (7.0-18.0) mg/dL Creatinine 1.8 H (0.8-1.3) mg/dL Est Cr Clr Drug Dosing 38.84 mL/min Estimated GFR (MDRD) 36.8 ml/min Glucose 86 (74-106) mg/dL Calcium 6.9 L (8.5-10.1) mg/dL Phosphorus 3.0 (2.6-4.7) mg/dL Magnesium 1.5 L (1.8-2.4) mg/dL Total Bilirubin 0.3 (0.2-1.0) mg/dL AST 11 L (15-37) IU/L ALT 12 L (14-63) IU/L Alkaline Phosphatase 54 (46-116) U/L Total Protein 4.3 L (6.4-8.2) g/dL Albumin 1.6 L (3.4-5.0) g/dL Globulin 2.7 (2.6-4.0) g/dL Albumin/Globulin Ratio 0.6 L (0.9-1.6) Urine Color Urine Appearance Urine pH (5.0-8.0) Ur Specific [place] (1.001-1.035) Urine Protein (NEGATIVE) mg/dL Urine Glucose (UA) (NEGATIVE) mg/dL Urine Ketones (NEGATIVE) mg/dL Urine Occult Blood (NEGATIVE) Urine Nitrite (NEGATIVE) Urine Bilirubin (NEGATIVE) Urine Ictotest Urine Urobilinogen (<2.0) EU/dL Ur Leukocyte Esterase (NEGATIVE) Wilmer Results Last 24 Hours: Microbiology 09/05/19 23:00 C. difficile Antigen & Toxins A,B - Final Stool / Feces 09/05/19 23:00 Campylobacter Antigen Assay - Final Stool / Feces NEGATIVE CAMPYLOBACTER AG REFERENCE RANGE: NEGATIVE Med Orders - Current: Current Medications Acetaminophen (Tylenol) 650 mg PO Q4H PRN PRN Reason: Pain (Mild 1-3)/fever Heparin Sodium (Porcine) (Heparin Sodium) 5,000 units SUBCUT Q8H [facility] Last Admin: 09/06/19 04:16 Dose: 5,000 units Sodium Chloride (Normal Saline) 1,000 mls @ 100 mls/hr IV STAT [facility] Last Admin: 09/06/19 03:00 Dose: 100 mls/hr Ondansetron HCl (Zofran Odt) 4 mg PO Q4H PRN PRN Reason: nausea, able to take PO Ondansetron HCl (Zofran) 4 mg IVPUSH Q4H PRN PRN Reason: Nausea Propranolol HCl (Inderal La) 160 mg PO BEDTIME [facility] Last Admin: 09/05/19 20:00 Dose: 160 mg Discontinued Medications Sodium Chloride (Normal Saline) 1,000 mls @ 999 mls/hr IV STAT ONE Stop: 09/05/19 13:12 Last Admin: 09/05/19 12:22 Dose: 999 mls/hr Potassium Chloride 40 meq/ (Sodium Chloride) 350 mls @ 87.5 mls/hr IV ONETIME ONE Stop: 09/05/19 16:29 Last Admin: 09/05/19 13:10 Dose: Not Given Magnesium Sulfate 2 gm/ Premix 50 mls @ 25 mls/hr IV ONETIME ONE Stop: 09/05/19 14:29 Last Admin: 09/05/19 12:56 Dose: 25 mls/hr Potassium Chloride 40 meq/ (Sodium Chloride) 270 mls @ 67.5 mls/hr IV ONETIME ONE Stop: 09/05/19 16:29 Last Admin: 09/05/19 14:52 Dose: 67.5 mls/hr Potassium Chloride (Klor-Con M20) 20 meq PO ONETIME ONE Stop: 09/05/19 12:15 Last Admin: 09/05/19 12:35 Dose: 20 meq - Exam General: Alert, Oriented, Cooperative, No Acute Distress Lungs: Clear to Auscultation, Normal Respiratory Effort Cardiovascular: Regular Rate, Regular Rhythm GI/Abdominal Exam: Normal Bowel Sounds, Soft, Non-Tender, No Distention Sepsis Event Note - Evaluation Sepsis Screening Result: No Definite Risk - Focused Exam Vital Signs: Vital Signs Temp Pulse Resp BP Pulse Ox 09/06/19 08:00 98.6 F 76 18 120/63 95 09/06/19 04:18 98.9 F 75 16 107/58 L 95 09/06/19 00:00 99.1 F 67 16 123/60 96 Date Exam was Performed: 09/06/19 Time Exam was Performed: 10:04 - Problem List Review Problem List Initiated/Reviewed/Updated: Yes - My Orders Last 24 Hours: My Active Orders 09/05/19 12:00 Patient Status [ADT] Routine Oxygen Therapy [RC] PRN Up ad Rand [RC] ASDIRECTED VTE/DVT Education [RC] PER UNIT ROUTINE Vital Signs [RC] Q4H Acetaminophen [Tylenol] 650 mg PO Q4H PRN Heparin Sodium 5,000 units SUBCUT Q8H Ondansetron [Zofran ODT] 4 mg PO Q4H PRN Ondansetron [Zofran] 4 mg IVPUSH Q4H PRN Resuscitation Status Routine 09/05/19 13:15 Sodium Chloride 0.9% [Normal Saline] 1,000 ml IV STAT 09/05/19 21:00 Propranolol [Inderal LA] 160 mg PO BEDTIME 09/05/19 23:00 CULTURE STOOL + CAMPY+SHIGATOX [RM] Stat OVA & PARASITES BY IMMUNOASSAY [MREF] Stat 12/11/19 Lunch Regular Diet [DIET] - Plan Plan:: Assessment and Plan: 1. C. Diff colitis: Will start PO vancomycin 125 mg PO q6. 2. BRANDO likely secondary to dehydration, improving: Will continue IV fluids 75 cc /hr. 3. Thrombocytosis: Will monitor. 4. Hypokalemia: Replete with IV 40 mEq KCl and PO 40 mEq KCl. 5. Hypomagnesemia: Replete with 2 g IV magnesium sulfate. 6. Pancreatic cancer with liver mets on chemotherapy: Patient gets chemotherapy infusion every 2 weeks. 7. Past medical history of DVT, HTN and hyperlipidemia: Will continue home medications except will hold Apixaban for now and start heparin. 8. VTE prophylaxis: Heparin 5,000 units subcut q8h.
[2019-09-06] MEDS ORDERED: Magnesium Sulfate/Water 2 GM in Premix Bag 1 BAG IV ONE (08:59)
[2019-09-06] MEDS ORDERED: Potassium Chloride 20 MEQ Tab.ER PO ONE (09:06)
[2019-09-06] MEDS: Vancomycin 25 MG/ML Compounding Kit PO SCH ×3 (13:02→23:32)
[2019-09-06] MEDS: Propranolol 80 MG Cap.ER PO SCH (20:08)
[2019-09-07] MEDS: Heparin Sodium 5,000 Units/ML Vial SUBCUT SCH ×3 (03:54→20:04)
[2019-09-07] MEDS: Sodium Chloride 0.9% 1,000 ML IV SCH (03:54)
[2019-09-07] MEDS: Vancomycin 25 MG/ML Compounding Kit PO SCH ×4 (06:03→23:09)
[2019-09-07 07:02] LABS: CARBON DIOXIDE,CO2 16.5 mmol/L (21.0-32.0); POTASSIUM,K 3.2 mmol/L (3.5-5.1)
--- NOTE | 2019-09-07 08:27 | PCM.PN ---
- General Info Date of Service: 09/07/19 Subjective Update: No complaints at bedside this morning. Reports 1 loose bowel movement this morning. Still not having much of an appetite and ate 1 meal yesterday. Denies SOB, dizziness or chest pain. - Patient Data Vitals - Most Recent: Last Vital Signs Temp 99.1 F 09/07/19 07:35 Pulse 69 09/07/19 07:35 Resp 17 09/07/19 07:35 BP 117/59 L 09/07/19 07:35 Pulse Ox 96 09/07/19 07:35 Weight - Most Recent: 197 lb 5.019 oz I&O - Last 24 Hours: Intake & Output 09/06/19 09/07/19 09/07/19 22:59 06:59 14:59 Intake Total 570 1316 Balance 570 1316 Lab Results Last 24 Hours: Laboratory Results - last 24 hr 09/06/19 09/07/19 09/07/19 Range/Units 20:19 06:32 06:32 WBC 2.71 L 3.21 L (4.0-11.0) K/uL RBC 3.06 L 2.89 L (4.50-5.90) M/uL Hgb 8.0 L 7.5 L (13.0-17.0) g/dL Hct 25.6 L 24.2 L (38.0-50.0) % MCV 83.7 83.7 (80.0-98.0) fL MCH 26.1 L 26.0 L (27.0-32.0) pg MCHC 31.3 31.0 (31.0-37.0) g/dL RDW Std Deviation 54.4 55.3 (28.0-62.0) fl RDW Coeff of Arnaud 18 H 18 H (11.0-15.0) % Plt Count 409 H 375 (150-400) K/uL MPV 8.40 8.10 (7.40-12.00) fL Add Manual Diff YES YES Neutrophils % (Manual) 34 L 40 L (48.0-80.0) % Band Neutrophils % 14 13 % Lymphocytes % (Manual) 40 37 (16.0-40.0) % Monocytes % (Manual) 10 8 (0.0-15.0) % Eosinophils % (Manual) 1 1 (0.0-7.0) % Basophils % (Manual) 1 1 (0.0-1.5) % Nucleated RBC % 0.8 0.0 /100WBC Absolute Seg Neuts 0.9 L 1.3 L (1.4-5.7) Band Neutrophils # 0.4 0.4 Lymphocytes # (Manual) 1.1 1.2 (0.6-2.4) Monocytes # (Manual) 0.3 0.3 (0.0-0.8) Eosinophils # (Manual) 0.0 0.0 (0.0-0.7) Basophils # (Manual) 0.0 0.0 (0.0-0.1) Nucleated RBCs # 0 0 K/uL Sodium 142 (136-148) mmol/L Potassium 3.2 L (3.5-5.1) mmol/L Chloride 113 H (98-107) mmol/L Carbon Dioxide 16.5 L (21.0-32.0) mmol/L BUN 18 (7.0-18.0) mg/dL Creatinine 1.4 H (0.8-1.3) mg/dL Est Cr Clr Drug Dosing 49.94 mL/min Estimated GFR (MDRD) 49.1 ml/min Glucose 84 (74-106) mg/dL Calcium 7.1 L (8.5-10.1) mg/dL Phosphorus 2.5 L (2.6-4.7) mg/dL Magnesium 1.8 (1.8-2.4) mg/dL Total Bilirubin 0.3 (0.2-1.0) mg/dL AST 16 (15-37) IU/L ALT 14 (14-63) IU/L Alkaline Phosphatase 53 (46-116) U/L Total Protein 4.2 L (6.4-8.2) g/dL Albumin 1.6 L (3.4-5.0) g/dL Globulin 2.6 (2.6-4.0) g/dL Albumin/Globulin Ratio 0.6 L (0.9-1.6) Wilmer Results Last 24 Hours: Microbiology 09/05/19 23:00 Campylobacter Antigen Assay - Final Stool / Feces NEGATIVE CAMPYLOBACTER AG REFERENCE RANGE: NEGATIVE Shiga Toxin I - Final NEGATIVE FOR SHIGA TOXIN 1 REFERENCE RANGE: NEGATIVE Shiga Toxin II - Final NEGATIVE FOR SHIGA TOXIN 2 REFERENCE RANGE: NEGATIVE Med Orders - Current: Current Medications Acetaminophen (Tylenol) 650 mg PO Q4H PRN PRN Reason: Pain (Mild 1-3)/fever Heparin Sodium (Porcine) (Heparin Sodium) 5,000 units SUBCUT Q8H [facility] Last Admin: 09/07/19 03:54 Dose: 5,000 units Sodium Chloride (Normal Saline) 1,000 mls @ 75 mls/hr IV STAT [facility] Last Admin: 09/07/19 03:54 Dose: 75 mls/hr Potassium Chloride 40 meq/ (Sodium Chloride) 520 mls @ 130 mls/hr IV ONETIME ONE Stop: 09/07/19 12:29 Ondansetron HCl (Zofran Odt) 4 mg PO Q4H PRN PRN Reason: nausea, able to take PO Last Admin: 09/06/19 10:46 Dose: 4 mg Ondansetron HCl (Zofran) 4 mg IVPUSH Q4H PRN PRN Reason: Nausea Propranolol HCl (Inderal La) 160 mg PO BEDTIME [facility] Last Admin: 09/06/19 20:08 Dose: 160 mg Sodium Phosphate (Neutra-Phos) 250 mg PO QID [facility] Stop: 09/08/19 06:01 Vancomycin HCl (First-Vancomycin 25 Compounding Kit) 125 mg PO QID [facility] Last Admin: 09/07/19 06:03 Dose: 125 mg Discontinued Medications Sodium Chloride (Normal Saline) 1,000 mls @ 999 mls/hr IV STAT ONE Stop: 09/05/19 13:12 Last Admin: 09/05/19 12:22 Dose: 999 mls/hr Potassium Chloride 40 meq/ (Sodium Chloride) 350 mls @ 87.5 mls/hr IV ONETIME ONE Stop: 09/05/19 16:29 Last Admin: 09/05/19 13:10 Dose: Not Given Magnesium Sulfate 2 gm/ Premix 50 mls @ 25 mls/hr IV ONETIME ONE Stop: 09/05/19 14:29 Last Admin: 09/05/19 12:56 Dose: 25 mls/hr Potassium Chloride 40 meq/ (Sodium Chloride) 270 mls @ 67.5 mls/hr IV ONETIME ONE Stop: 09/05/19 16:29 Last Admin: 09/05/19 14:52 Dose: 67.5 mls/hr Potassium Chloride 40 meq/ (Sodium Chloride) 270 mls @ 67.5 mls/hr IV ONETIME ONE Stop: 09/06/19 13:29 Last Admin: 09/06/19 10:03 Dose: 67.5 mls/hr Magnesium Sulfate 2 gm/ Premix 50 mls @ 25 mls/hr IV ONETIME ONE Stop: 09/06/19 10:58 Last Admin: 09/06/19 10:03 Dose: 25 mls/hr Potassium Chloride (Klor-Con M20) 20 meq PO ONETIME ONE Stop: 09/05/19 12:15 Last Admin: 09/05/19 12:35 Dose: 20 meq Potassium Chloride (Klor-Con M20) 40 meq PO ONETIME ONE Stop: 09/06/19 09:07 Last Admin: 09/06/19 10:02 Dose: 40 meq - Exam General: Alert, Oriented, Cooperative, No Acute Distress Lungs: Clear to Auscultation, Normal Respiratory Effort Cardiovascular: Regular Rate, Regular Rhythm GI/Abdominal Exam: Normal Bowel Sounds, Soft, Non-Tender, No Distention Extremities: Other (mild non-pitting edema bilaterally, SCD's on) Sepsis Event Note - Evaluation Sepsis Screening Result: No Definite Risk - Focused Exam Vital Signs: Vital Signs Temp Pulse Resp BP Pulse Ox 09/07/19 07:35 99.1 F 69 17 117/59 L 96 09/07/19 03:52 98.3 F 71 16 114/57 L 96 09/06/19 23:35 98.8 F 74 16 110/51 L 96 Date Exam was Performed: 09/07/19 Time Exam was Performed: 09:46 - Problem List Review Problem List Initiated/Reviewed/Updated: Yes - My Orders Last 24 Hours: My Active Orders 09/07/19 08:30 Potassium Chloride 40 meq Sodium Chloride 0.9% [Normal Saline] 500 ml IV ONETIME 09/07/19 12:00 Phosphorus #1 [Neutra-Phos] 250 mg PO QID - Plan Plan:: Assessment and Plan: 1. C. Diff colitis: Continue PO vancomycin 125 mg PO q6. 2. Acute symptomatic normocytic anemia: Hemoglobin this AM is 7.5. Will transfuse 2 units PRBC's. 3. BRANDO, improved: Will continue IV fluids 75 cc/hr. Will encourage oral intake today. Patient reports not much of an appetite. 4. Thrombocytosis: Will monitor. 5. Hypokalemia: Replete with IV 40 mEq KCl today. 6. Hypophosphatemia: Will replete and recheck with AM labs. 7. Pancreatic cancer with liver mets on chemotherapy: Patient gets chemotherapy infusion every 2 weeks. 8. Past medical history of DVT, HTN and hyperlipidemia: Will continue home medications except will hold Apixaban and contiue heparin. 9. VTE prophylaxis: Heparin 5,000 units subcut q8h.
[2019-09-07] MEDS ORDERED: Potassium Chloride 40 MEQ in Sodium Chloride 0.9% 500 ML IV ONE (08:30)
[2019-09-07] MEDS: Phosphorus #1 250 MG Tab PO SCH ×3 (11:48→23:09)
[2019-09-07] MEDS: Propranolol 80 MG Cap.ER PO SCH (20:04)
[2019-09-08] MEDS: Heparin Sodium 5,000 Units/ML Vial SUBCUT SCH ×3 (03:49→20:19)
[2019-09-08] MEDS: Sodium Chloride 0.9% 1,000 ML IV SCH ×2 (03:50→20:07)
[2019-09-08] MEDS: Phosphorus #1 250 MG Tab PO SCH (05:50)
[2019-09-08] MEDS: Vancomycin 25 MG/ML Compounding Kit PO SCH ×4 (05:50→23:53)
[2019-09-08 06:51] LABS: CARBON DIOXIDE,CO2 18.3 mmol/L (21.0-32.0); POTASSIUM,K 3.7 mmol/L (3.5-5.1)
[2019-09-08] MEDS ORDERED: Magnesium Sulfate/Water 2 GM in Premix Bag 1 BAG IV ONE (07:10)
--- NOTE | 2019-09-08 08:44 | PCM.PN ---
<Gonzalo Lugo M - Last Filed: 09/08/19 11:32> - General Info Date of Service: 09/08/19 Subjective Update: Reports still having diarrhea. Weakness has improved. Eating a bit more yesterday but reports appetite still not at baseline. Denies shortness of breath. - Patient Data Vitals - Most Recent: Last Vital Signs Temp 98.4 F 09/08/19 04:00 Pulse 71 09/08/19 04:00 Resp 16 09/08/19 04:00 BP 122/64 09/08/19 04:00 Pulse Ox 95 09/08/19 04:00 Weight - Most Recent: 89.5 kg I&O - Last 24 Hours: Intake & Output 09/07/19 09/08/19 09/08/19 22:59 06:59 14:59 Intake Total 706 2768 Balance 706 2768 Lab Results Last 24 Hours: Laboratory Results - last 24 hr 09/07/19 09/07/19 09/08/19 Range/Units 09:20 19:15 06:10 WBC 3.99 L (4.0-11.0) K/uL RBC 3.66 L (4.50-5.90) M/uL Hgb 9.8 L 9.8 L (13.0-17.0) g/dL Hct 30.5 L 31.0 L (38.0-50.0) % MCV 84.7 (80.0-98.0) fL MCH 26.8 L (27.0-32.0) pg MCHC 31.6 (31.0-37.0) g/dL RDW Std Deviation 53.9 (28.0-62.0) fl RDW Coeff of Arnaud 18 H (11.0-15.0) % Plt Count 355 (150-400) K/uL MPV 8.40 (7.40-12.00) fL Add Manual Diff YES Neutrophils % (Manual) 36 L (48.0-80.0) % Band Neutrophils % 7 % Lymphocytes % (Manual) 47 H (16.0-40.0) % Monocytes % (Manual) 5 (0.0-15.0) % Eosinophils % (Manual) 3 (0.0-7.0) % Metamyelocytes % 2 % Nucleated RBC % 0.8 /100WBC Absolute Seg Neuts 1.4 (1.4-5.7) Band Neutrophils # 0.3 Lymphocytes # (Manual) 1.9 (0.6-2.4) Monocytes # (Manual) 0.2 (0.0-0.8) Eosinophils # (Manual) 0.1 (0.0-0.7) Absolute Metamyelocyte 0.1 Nucleated RBCs 1 % Nucleated RBCs # 0 K/uL Sodium (136-148) mmol/L Potassium (3.5-5.1) mmol/L Chloride (98-107) mmol/L Carbon Dioxide (21.0-32.0) mmol/L BUN (7.0-18.0) mg/dL Creatinine (0.8-1.3) mg/dL Est Cr Clr Drug Dosing mL/min Estimated GFR (MDRD) ml/min Glucose (74-106) mg/dL Calcium (8.5-10.1) mg/dL Phosphorus (2.6-4.7) mg/dL Magnesium (1.8-2.4) mg/dL Total Bilirubin (0.2-1.0) mg/dL AST (15-37) IU/L ALT (14-63) IU/L Alkaline Phosphatase (46-116) U/L Total Protein (6.4-8.2) g/dL Albumin (3.4-5.0) g/dL Globulin (2.6-4.0) g/dL Albumin/Globulin Ratio (0.9-1.6) Blood Type A POSITIVE Antibody Screen NEGATIVE Crossmatch See Detail 09/08/19 Range/Units 06:10 WBC (4.0-11.0) K/uL RBC (4.50-5.90) M/uL Hgb (13.0-17.0) g/dL Hct (38.0-50.0) % MCV (80.0-98.0) fL MCH (27.0-32.0) pg MCHC (31.0-37.0) g/dL RDW Std Deviation (28.0-62.0) fl RDW Coeff of Arnaud (11.0-15.0) % Plt Count (150-400) K/uL MPV (7.40-12.00) fL Add Manual Diff Neutrophils % (Manual) (48.0-80.0) % Band Neutrophils % % Lymphocytes % (Manual) (16.0-40.0) % Monocytes % (Manual) (0.0-15.0) % Eosinophils % (Manual) (0.0-7.0) % Metamyelocytes % % Nucleated RBC % /100WBC Absolute Seg Neuts (1.4-5.7) Band Neutrophils # Lymphocytes # (Manual) (0.6-2.4) Monocytes # (Manual) (0.0-0.8) Eosinophils # (Manual) (0.0-0.7) Absolute Metamyelocyte Nucleated RBCs % Nucleated RBCs # K/uL Sodium 142 (136-148) mmol/L Potassium 3.7 (3.5-5.1) mmol/L Chloride 113 H (98-107) mmol/L Carbon Dioxide 18.3 L (21.0-32.0) mmol/L BUN 13 (7.0-18.0) mg/dL Creatinine 1.2 (0.8-1.3) mg/dL Est Cr Clr Drug Dosing 58.26 mL/min Estimated GFR (MDRD) 58.7 ml/min Glucose 87 (74-106) mg/dL Calcium 7.2 L (8.5-10.1) mg/dL Phosphorus 3.2 (2.6-4.7) mg/dL Magnesium 1.7 L (1.8-2.4) mg/dL Total Bilirubin 0.3 (0.2-1.0) mg/dL AST 19 (15-37) IU/L ALT 16 (14-63) IU/L Alkaline Phosphatase 56 (46-116) U/L Total Protein 4.5 L (6.4-8.2) g/dL Albumin 1.7 L (3.4-5.0) g/dL Globulin 2.8 (2.6-4.0) g/dL Albumin/Globulin Ratio 0.6 L (0.9-1.6) Blood Type Antibody Screen Crossmatch Wilmer Results Last 24 Hours: Microbiology 09/05/19 23:00 Cryptosporidium/Giardia - Final Stool / Feces 09/05/19 23:00 Stool Culture - Final Stool / Feces NO SALMONELLA, SHIGELLA,OR E.COLI O157 ISOLATED Campylobacter Antigen Assay - Final NEGATIVE CAMPYLOBACTER AG REFERENCE RANGE: NEGATIVE Shiga Toxin I - Final NEGATIVE FOR SHIGA TOXIN 1 REFERENCE RANGE: NEGATIVE Shiga Toxin II - Final NEGATIVE FOR SHIGA TOXIN 2 REFERENCE RANGE: NEGATIVE Med Orders - Current: Current Medications Acetaminophen (Tylenol) 650 mg PO Q4H PRN PRN Reason: Pain (Mild 1-3)/fever Heparin Sodium (Porcine) (Heparin Sodium) 5,000 units SUBCUT Q8H [facility] Last Admin: 09/08/19 03:49 Dose: 5,000 units Sodium Chloride (Normal Saline) 1,000 mls @ 75 mls/hr IV STAT [facility] Last Admin: 09/08/19 03:50 Dose: 75 mls/hr Magnesium Sulfate 2 gm/ Premix 50 mls @ 25 mls/hr IV ONETIME ONE Stop: 09/08/19 09:09 Last Admin: 09/08/19 07:22 Dose: 25 mls/hr Ondansetron HCl (Zofran Odt) 4 mg PO Q4H PRN PRN Reason: nausea, able to take PO Last Admin: 09/06/19 10:46 Dose: 4 mg Ondansetron HCl (Zofran) 4 mg IVPUSH Q4H PRN PRN Reason: Nausea Propranolol HCl (Inderal La) 160 mg PO BEDTIME [facility] Last Admin: 09/07/19 20:04 Dose: 160 mg Vancomycin HCl (First-Vancomycin 25 Compounding Kit) 125 mg PO QID [facility] Last Admin: 09/08/19 05:50 Dose: 125 mg Discontinued Medications Sodium Chloride (Normal Saline) 1,000 mls @ 999 mls/hr IV STAT ONE Stop: 09/05/19 13:12 Last Admin: 09/05/19 12:22 Dose: 999 mls/hr Potassium Chloride 40 meq/ (Sodium Chloride) 350 mls @ 87.5 mls/hr IV ONETIME ONE Stop: 09/05/19 16:29 Last Admin: 09/05/19 13:10 Dose: Not Given Magnesium Sulfate 2 gm/ Premix 50 mls @ 25 mls/hr IV ONETIME ONE Stop: 09/05/19 14:29 Last Admin: 09/05/19 12:56 Dose: 25 mls/hr Potassium Chloride 40 meq/ (Sodium Chloride) 270 mls @ 67.5 mls/hr IV ONETIME ONE Stop: 09/05/19 16:29 Last Admin: 09/05/19 14:52 Dose: 67.5 mls/hr Potassium Chloride 40 meq/ (Sodium Chloride) 270 mls @ 67.5 mls/hr IV ONETIME ONE Stop: 09/06/19 13:29 Last Admin: 09/06/19 10:03 Dose: 67.5 mls/hr Magnesium Sulfate 2 gm/ Premix 50 mls @ 25 mls/hr IV ONETIME ONE Stop: 09/06/19 10:58 Last Admin: 09/06/19 10:03 Dose: 25 mls/hr Potassium Chloride 40 meq/ (Sodium Chloride) 520 mls @ 130 mls/hr IV ONETIME ONE Stop: 09/07/19 12:29 Last Admin: 09/07/19 09:01 Dose: 130 mls/hr Potassium Chloride (Klor-Con M20) 20 meq PO ONETIME ONE Stop: 09/05/19 12:15 Last Admin: 09/05/19 12:35 Dose: 20 meq Potassium Chloride (Klor-Con M20) 40 meq PO ONETIME ONE Stop: 09/06/19 09:07 Last Admin: 09/06/19 10:02 Dose: 40 meq Sodium Phosphate (Neutra-Phos) 250 mg PO QID ROBY Stop: 09/08/19 06:01 Last Admin: 09/08/19 05:50 Dose: 250 mg - Exam General: Alert, Oriented, Cooperative, No Acute Distress Lungs: Clear to Auscultation, Normal Respiratory Effort Cardiovascular: Regular Rate, Regular Rhythm GI/Abdominal Exam: Normal Bowel Sounds, Soft, Non-Tender, No Distention Extremities: Normal Inspection, Other (mild non-pitting edema bilaterally.) Sepsis Event Note - Evaluation Sepsis Screening Result: No Definite Risk - Focused Exam Vital Signs: Vital Signs Temp Pulse Resp BP Pulse Ox 09/08/19 04:00 98.4 F 71 16 122/64 95 09/07/19 23:18 98.4 F 75 16 157/68 H 97 Date Exam was Performed: 09/08/19 Time Exam was Performed: 11:32 - Problem List Review Problem List Initiated/Reviewed/Updated: Yes - My Orders Last 24 Hours: My Active Orders 09/08/19 07:10 Magnesium Sulfate/Water [Magnesium Sulfate in Water Premix] 2 gm Premix Bag 1 bag IV ONETIME - Plan Plan:: Assessment and Plan: 1. C. Diff colitis: Continue PO vancomycin 125 mg PO q6 day # 3. 2. Acute symptomatic normocytic anemia s/p transfusion 2 units PRBC's: Hemoglobin this AM is 9.8. 3. Decreased appetite: Continue IV NS 75 cc/hr. Will encourage PO intake. Will put on clear liquid diet for now. 4. Hypomagnesemia: Will replete today with 2g IV magnesium sulfate. 5. Pancreatic cancer with liver mets on chemotherapy: Patient gets chemotherapy infusion every 2 weeks. 6. Past medical history of DVT, HTN and hyperlipidemia: Will continue home medications except will hold Apixaban and continue heparin. 7. VTE prophylaxis: Heparin 5,000 units subcut q8h. <Gt Durán - Last Filed: 09/09/19 09:39> - Patient Data Vitals - Most Recent: Last Vital Signs Temp 36.4 C 09/09/19 08:00 Pulse 69 09/09/19 08:00 Resp 17 09/09/19 08:00 BP 138/76 09/09/19 08:00 Pulse Ox 96 09/09/19 08:00 I&O - Last 24 Hours: Intake & Output 09/08/19 09/09/19 09/09/19 22:59 06:59 14:59 Intake Total 1220 1169 Output Total 400 Balance 820 1169 Lab Results Last 24 Hours: Laboratory Results - last 24 hr 09/09/19 09/09/19 Range/Units 06:05 06:05 WBC 3.25 L (4.0-11.0) K/uL RBC 3.37 L (4.50-5.90) M/uL Hgb 9.0 L (13.0-17.0) g/dL Hct 28.7 L (38.0-50.0) % MCV 85.2 (80.0-98.0) fL MCH 26.7 L (27.0-32.0) pg MCHC 31.4 (31.0-37.0) g/dL RDW Std Deviation 56.0 (28.0-62.0) fl RDW Coeff of Arnaud 18 H (11.0-15.0) % Plt Count 330 (150-400) K/uL MPV 8.70 (7.40-12.00) fL Add Manual Diff YES Neutrophils % (Manual) 69 (48.0-80.0) % Band Neutrophils % 2 % Lymphocytes % (Manual) 17 (16.0-40.0) % Monocytes % (Manual) 8 (0.0-15.0) % Eosinophils % (Manual) 1 (0.0-7.0) % Basophils % (Manual) 1 (0.0-1.5) % Metamyelocytes % 1 % Myelocytes % 1 % Nucleated RBC % 0.0 /100WBC Absolute Seg Neuts 2.2 (1.4-5.7) Band Neutrophils # 0.1 Lymphocytes # (Manual) 0.6 (0.6-2.4) Monocytes # (Manual) 0.3 (0.0-0.8) Eosinophils # (Manual) 0.0 (0.0-0.7) Basophils # (Manual) 0.0 (0.0-0.1) Absolute Metamyelocyte 0 Absolute Myelocytes 0 Nucleated RBCs # 0 K/uL Sodium 143 (136-148) mmol/L Potassium 3.2 L (3.5-5.1) mmol/L Chloride 114 H (98-107) mmol/L Carbon Dioxide 16.5 L (21.0-32.0) mmol/L BUN 12 (7.0-18.0) mg/dL Creatinine 1.1 (0.8-1.3) mg/dL Est Cr Clr Drug Dosing 63.56 mL/min Estimated GFR (MDRD) > 60.0 ml/min Glucose 77 (74-106) mg/dL Calcium 7.2 L (8.5-10.1) mg/dL Phosphorus 3.3 (2.6-4.7) mg/dL Magnesium 1.8 (1.8-2.4) mg/dL Total Bilirubin 0.2 (0.2-1.0) mg/dL AST 19 (15-37) IU/L ALT 12 L (14-63) IU/L Alkaline Phosphatase 54 (46-116) U/L Total Protein 3.9 L (6.4-8.2) g/dL Albumin 1.5 L (3.4-5.0) g/dL Globulin 2.4 L (2.6-4.0) g/dL Albumin/Globulin Ratio 0.6 L (0.9-1.6) Med Orders - Current: Current Medications Acetaminophen (Tylenol) 650 mg PO Q4H PRN PRN Reason: Pain (Mild 1-3)/fever Heparin Sodium (Porcine) (Heparin Sodium) 5,000 units SUBCUT Q8H [facility] Last Admin: 09/09/19 04:28 Dose: 5,000 units Sodium Chloride (Normal Saline) 1,000 mls @ 75 mls/hr IV STAT [facility] Last Admin: 09/09/19 09:33 Dose: 75 mls/hr Ondansetron HCl (Zofran Odt) 4 mg PO Q4H PRN PRN Reason: nausea, able to take PO Last Admin: 09/06/19 10:46 Dose: 4 mg Ondansetron HCl (Zofran) 4 mg IVPUSH Q4H PRN PRN Reason: Nausea Propranolol HCl (Inderal La) 160 mg PO BEDTIME [facility] Last Admin: 09/08/19 20:17 Dose: 160 mg Vancomycin HCl (First-Vancomycin 25 Compounding Kit) 125 mg PO QID [facility] Last Admin: 09/09/19 06:10 Dose: 125 mg Discontinued Medications Sodium Chloride (Normal Saline) 1,000 mls @ 999 mls/hr IV STAT ONE Stop: 09/05/19 13:12 Last Admin: 09/05/19 12:22 Dose: 999 mls/hr Potassium Chloride 40 meq/ (Sodium Chloride) 350 mls @ 87.5 mls/hr IV ONETIME ONE Stop: 09/05/19 16:29 Last Admin: 09/05/19 13:10 Dose: Not Given Magnesium Sulfate 2 gm/ Premix 50 mls @ 25 mls/hr IV ONETIME ONE Stop: 09/05/19 14:29 Last Admin: 09/05/19 12:56 Dose: 25 mls/hr Potassium Chloride 40 meq/ (Sodium Chloride) 270 mls @ 67.5 mls/hr IV ONETIME ONE Stop: 09/05/19 16:29 Last Admin: 09/05/19 14:52 Dose: 67.5 mls/hr Potassium Chloride 40 meq/ (Sodium Chloride) 270 mls @ 67.5 mls/hr IV ONETIME ONE Stop: 09/06/19 13:29 Last Admin: 09/06/19 10:03 Dose: 67.5 mls/hr Magnesium Sulfate 2 gm/ Premix 50 mls @ 25 mls/hr IV ONETIME ONE Stop: 09/06/19 10:58 Last Admin: 09/06/19 10:03 Dose: 25 mls/hr Potassium Chloride 40 meq/ (Sodium Chloride) 520 mls @ 130 mls/hr IV ONETIME ONE Stop: 09/07/19 12:29 Last Admin: 09/07/19 09:01 Dose: 130 mls/hr Magnesium Sulfate 2 gm/ Premix 50 mls @ 25 mls/hr IV ONETIME ONE Stop: 09/08/19 09:09 Last Admin: 09/08/19 07:22 Dose: 25 mls/hr Potassium Chloride (Klor-Con M20) 20 meq PO ONETIME ONE Stop: 09/05/19 12:15 Last Admin: 09/05/19 12:35 Dose: 20 meq Potassium Chloride (Klor-Con M20) 40 meq PO ONETIME ONE Stop: 09/06/19 09:07 Last Admin: 09/06/19 10:02 Dose: 40 meq Sodium Phosphate (Neutra-Phos) 250 mg PO QID ROBY Stop: 09/08/19 06:01 Last Admin: 09/08/19 05:50 Dose: 250 mg Sepsis Event Note - Focused Exam Vital Signs: Vital Signs Temp Pulse Resp BP Pulse Ox 09/09/19 08:00 36.4 C 69 17 138/76 96 09/09/19 04:00 37.0 C 72 20 113/63 93 L 09/08/19 23:56 36.7 C 68 18 142/85 H 98 Date Exam was Performed: 09/09/19 Time Exam was Performed: 09:39 - Plan Plan:: I have seen and examined the patient along with the resident and agree with the assessment and plan outlined above unless otherwise specified in my note
[2019-09-08] MEDS: Propranolol 80 MG Cap.ER PO SCH (20:17)
[2019-09-09] MEDS: Heparin Sodium 5,000 Units/ML Vial SUBCUT SCH ×3 (04:28→20:41)
[2019-09-09] MEDS: Vancomycin 25 MG/ML Compounding Kit PO SCH ×3 (06:10→18:03)
[2019-09-09 06:44] LABS: BLOOD UREA NITROGEN,BUN 12 mg/dL (7.0-18.0); CARBON DIOXIDE,CO2 16.5 mmol/L (21.0-32.0); CHLORIDE,CL 114 mmol/L (98-107); GLUCOSE RANDOM 77 mg/dL (74-106); POTASSIUM,K 3.2 mmol/L (3.5-5.1); SODIUM,NA 143 mmol/L (136-148)
[2019-09-09] MEDS: Sodium Chloride 0.9% 1,000 ML IV SCH (09:33)
[2019-09-09] MEDS ORDERED: Potassium Chloride Riders 40 MEQ in Premix Bag 1 BAG IV ONE (10:04)
--- NOTE | 2019-09-09 10:06 | PCM.PN ---
- General Info Date of Service: 09/09/19 Admission Dx/Problem (Free Text): Admission Diagnosis/Problem Admission Diagnosis/Problem Dehydration Subjective Update: Reports still having diarrhea x5 overnight. Weakness has improved. Denies shortness of breath. - Review of Systems General: Reports: Weakness, Malaise. Denies: Fever, Fatigue HEENT: Denies: Dysphasia, Headaches Pulmonary: Denies: Shortness of Breath, Pleuritic Chest Pain Cardiovascular: Denies: Chest Pain, Palpitations Gastrointestinal: Reports: Decreased Appetite, Diarrhea. Denies: Abdominal Pain , Constipation, Nausea, Vomiting Genitourinary: Denies: Dysuria, Frequency, Burning Musculoskeletal: Denies: Neck Pain, Shoulder Pain Skin: Denies: Cyanosis, Jaundice Neurological: Denies: Confusion, Dizziness, Headache Psychiatric: Denies: Confusion, Depression, Mood Lability - Patient Data Vitals - Most Recent: Last Vital Signs Temp 36.4 C 09/09/19 08:00 Pulse 69 09/09/19 08:00 Resp 17 09/09/19 08:00 BP 138/76 09/09/19 08:00 Pulse Ox 96 09/09/19 08:00 Weight - Most Recent: 89.5 kg I&O - Last 24 Hours: Intake & Output 09/08/19 09/09/19 09/09/19 22:59 06:59 14:59 Intake Total 1220 1169 Output Total 400 Balance 820 1169 Lab Results Last 24 Hours: Laboratory Results - last 24 hr 09/09/19 09/09/19 Range/Units 06:05 06:05 WBC 3.25 L (4.0-11.0) K/uL RBC 3.37 L (4.50-5.90) M/uL Hgb 9.0 L (13.0-17.0) g/dL Hct 28.7 L (38.0-50.0) % MCV 85.2 (80.0-98.0) fL MCH 26.7 L (27.0-32.0) pg MCHC 31.4 (31.0-37.0) g/dL RDW Std Deviation 56.0 (28.0-62.0) fl RDW Coeff of Arnaud 18 H (11.0-15.0) % Plt Count 330 (150-400) K/uL MPV 8.70 (7.40-12.00) fL Add Manual Diff YES Neutrophils % (Manual) 69 (48.0-80.0) % Band Neutrophils % 2 % Lymphocytes % (Manual) 17 (16.0-40.0) % Monocytes % (Manual) 8 (0.0-15.0) % Eosinophils % (Manual) 1 (0.0-7.0) % Basophils % (Manual) 1 (0.0-1.5) % Metamyelocytes % 1 % Myelocytes % 1 % Nucleated RBC % 0.0 /100WBC Absolute Seg Neuts 2.2 (1.4-5.7) Band Neutrophils # 0.1 Lymphocytes # (Manual) 0.6 (0.6-2.4) Monocytes # (Manual) 0.3 (0.0-0.8) Eosinophils # (Manual) 0.0 (0.0-0.7) Basophils # (Manual) 0.0 (0.0-0.1) Absolute Metamyelocyte 0 Absolute Myelocytes 0 Nucleated RBCs # 0 K/uL Sodium 143 (136-148) mmol/L Potassium 3.2 L (3.5-5.1) mmol/L Chloride 114 H (98-107) mmol/L Carbon Dioxide 16.5 L (21.0-32.0) mmol/L BUN 12 (7.0-18.0) mg/dL Creatinine 1.1 (0.8-1.3) mg/dL Est Cr Clr Drug Dosing 63.56 mL/min Estimated GFR (MDRD) > 60.0 ml/min Glucose 77 (74-106) mg/dL Calcium 7.2 L (8.5-10.1) mg/dL Phosphorus 3.3 (2.6-4.7) mg/dL Magnesium 1.8 (1.8-2.4) mg/dL Total Bilirubin 0.2 (0.2-1.0) mg/dL AST 19 (15-37) IU/L ALT 12 L (14-63) IU/L Alkaline Phosphatase 54 (46-116) U/L Total Protein 3.9 L (6.4-8.2) g/dL Albumin 1.5 L (3.4-5.0) g/dL Globulin 2.4 L (2.6-4.0) g/dL Albumin/Globulin Ratio 0.6 L (0.9-1.6) Med Orders - Current: Current Medications Acetaminophen (Tylenol) 650 mg PO Q4H PRN PRN Reason: Pain (Mild 1-3)/fever Heparin Sodium (Porcine) (Heparin Sodium) 5,000 units SUBCUT Q8H [facility] Last Admin: 09/09/19 04:28 Dose: 5,000 units Sodium Chloride (Normal Saline) 1,000 mls @ 75 mls/hr IV STAT [facility] Last Admin: 09/09/19 09:33 Dose: 75 mls/hr Metronidazole 500 mg/ Premix 100 mls @ 100 mls/hr IV Q8H [facility] Potassium Chloride 40 meq/ (Premix) 100 mls @ 25 mls/hr IV ONETIME ONE Stop: 09/09/19 14:03 Ondansetron HCl (Zofran Odt) 4 mg PO Q4H PRN PRN Reason: nausea, able to take PO Last Admin: 09/06/19 10:46 Dose: 4 mg Ondansetron HCl (Zofran) 4 mg IVPUSH Q4H PRN PRN Reason: Nausea Propranolol HCl (Inderal La) 160 mg PO BEDTIME [facility] Last Admin: 09/08/19 20:17 Dose: 160 mg Vancomycin HCl (First-Vancomycin 25 Compounding Kit) 125 mg PO QID [facility] Last Admin: 09/09/19 06:10 Dose: 125 mg Discontinued Medications Sodium Chloride (Normal Saline) 1,000 mls @ 999 mls/hr IV STAT ONE Stop: 09/05/19 13:12 Last Admin: 09/05/19 12:22 Dose: 999 mls/hr Potassium Chloride 40 meq/ (Sodium Chloride) 350 mls @ 87.5 mls/hr IV ONETIME ONE Stop: 09/05/19 16:29 Last Admin: 09/05/19 13:10 Dose: Not Given Magnesium Sulfate 2 gm/ Premix 50 mls @ 25 mls/hr IV ONETIME ONE Stop: 09/05/19 14:29 Last Admin: 09/05/19 12:56 Dose: 25 mls/hr Potassium Chloride 40 meq/ (Sodium Chloride) 270 mls @ 67.5 mls/hr IV ONETIME ONE Stop: 09/05/19 16:29 Last Admin: 09/05/19 14:52 Dose: 67.5 mls/hr Potassium Chloride 40 meq/ (Sodium Chloride) 270 mls @ 67.5 mls/hr IV ONETIME ONE Stop: 09/06/19 13:29 Last Admin: 09/06/19 10:03 Dose: 67.5 mls/hr Magnesium Sulfate 2 gm/ Premix 50 mls @ 25 mls/hr IV ONETIME ONE Stop: 09/06/19 10:58 Last Admin: 09/06/19 10:03 Dose: 25 mls/hr Potassium Chloride 40 meq/ (Sodium Chloride) 520 mls @ 130 mls/hr IV ONETIME ONE Stop: 09/07/19 12:29 Last Admin: 09/07/19 09:01 Dose: 130 mls/hr Magnesium Sulfate 2 gm/ Premix 50 mls @ 25 mls/hr IV ONETIME ONE Stop: 09/08/19 09:09 Last Admin: 09/08/19 07:22 Dose: 25 mls/hr Potassium Chloride (Klor-Con M20) 20 meq PO ONETIME ONE Stop: 09/05/19 12:15 Last Admin: 09/05/19 12:35 Dose: 20 meq Potassium Chloride (Klor-Con M20) 40 meq PO ONETIME ONE Stop: 09/06/19 09:07 Last Admin: 09/06/19 10:02 Dose: 40 meq Sodium Phosphate (Neutra-Phos) 250 mg PO QID ROBY Stop: 09/08/19 06:01 Last Admin: 09/08/19 05:50 Dose: 250 mg - Exam Quality Assessment: No: Supplemental Oxygen General: Alert, Oriented Neck: Supple, Trachea Midline Lungs: Clear to Auscultation, Normal Respiratory Effort Cardiovascular: Regular Rate, Regular Rhythm GI/Abdominal Exam: Normal Bowel Sounds, Soft, Non-Tender Peripheral Pulses: 3+: Dorsalis Pedis (L), Dorsalis Pedis (R) Sepsis Event Note - Evaluation Sepsis Screening Result: No Definite Risk - Focused Exam Vital Signs: Vital Signs Temp Pulse Resp BP Pulse Ox 09/09/19 08:00 36.4 C 69 17 138/76 96 09/09/19 04:00 37.0 C 72 20 113/63 93 L 09/08/19 23:56 36.7 C 68 18 142/85 H 98 Date Exam was Performed: 09/09/19 Time Exam was Performed: 10:56 - Problem List & Annotations (1) C. 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 C. Diff colitis: Continue PO vancomycin 125 mg PO q6 day # 4, will add IV Flagyl given diarrhea isn't improving much, cont IVF for hydration, continue clear liquids, monitor and replete electrolytes 2. Acute symptomatic normocytic anemia s/p transfusion 2 units PRBC's: Hemoglobin this AM is 9.0, no gross blood in stool, no black stools, will continue to trend daily, hold Apixaban 3. Pancreatic cancer with liver mets on chemotherapy: Patient gets chemotherapy infusion every 2 weeks. 4. VTE prophylaxis: Heparin 5,000 units subcut q8h.
[2019-09-09] MEDS: metroNIDAZOLE/Normal Saline 500 MG in Premix Bag 1 BAG IV SCH ×2 (11:14→18:04)
[2019-09-09] MEDS: Propranolol 80 MG Cap.ER PO SCH (20:41)
[2019-09-10] MEDS: Vancomycin 25 MG/ML Compounding Kit PO SCH ×5 (00:04→23:28)
[2019-09-10] MEDS: Sodium Chloride 0.9% 1,000 ML IV SCH (00:06)
[2019-09-10] MEDS ORDERED: metroNIDAZOLE/Normal Saline 100 ML ONE (03:19)
[2019-09-10] MEDS: Heparin Sodium 5,000 Units/ML Vial SUBCUT SCH ×3 (03:25→21:42)
[2019-09-10] MEDS: metroNIDAZOLE/Normal Saline 500 MG in Premix Bag 1 BAG IV SCH ×3 (03:27→17:43)
[2019-09-10 06:40] LABS: CARBON DIOXIDE,CO2 15.8 mmol/L (21.0-32.0); POTASSIUM,K 3.6 mmol/L (3.5-5.1)
[2019-09-10] MEDS ORDERED: Magnesium Sulfate/Water 2 GM in Premix Bag 1 BAG IV ONE (09:55)
--- NOTE | 2019-09-10 13:31 | PCM.PN ---
<Eliud Miner - Last Filed: 09/10/19 13:25> - General Info Date of Service: 09/10/19 Subjective Update: pt. seen at bedside; endorses having 5 BM since last night ' one this morning ; states his appetite is still low but would like to try more solid foods. Mentions nausea is the same as yesterday. Functional Status: Reports: Pain Controlled - Review of Systems General: Denies: Fever, Weakness, Fatigue, Malaise Pulmonary: Denies: Shortness of Breath, Cough Cardiovascular: Denies: Chest Pain, Palpitations Gastrointestinal: Reports: Decreased Appetite, Diarrhea, Nausea. Denies: Constipation, Vomiting Genitourinary: Denies: Dysuria Musculoskeletal: Denies: Back Pain Neurological: Denies: Headache - Patient Data Vitals - Most Recent: Last Vital Signs Temp 97.7 F 09/10/19 11:00 Pulse 68 09/10/19 11:00 Resp 16 09/10/19 11:00 BP 146/63 H 09/10/19 11:00 Pulse Ox 97 09/10/19 11:00 Weight - Most Recent: 89.5 kg I&O - Last 24 Hours: Intake & Output 09/09/19 09/10/19 09/10/19 22:59 06:59 14:59 Intake Total 1020 1471 100 Output Total 300 640 Balance 720 831 100 Lab Results Last 24 Hours: Laboratory Results - last 24 hr 09/10/19 09/10/19 Range/Units 05:50 05:50 WBC 4.83 (4.0-11.0) K/uL RBC 3.51 L (4.50-5.90) M/uL Hgb 9.4 L (13.0-17.0) g/dL Hct 30.0 L (38.0-50.0) % MCV 85.5 (80.0-98.0) fL MCH 26.8 L (27.0-32.0) pg MCHC 31.3 (31.0-37.0) g/dL RDW Std Deviation 56.9 (28.0-62.0) fl RDW Coeff of Arnaud 18 H (11.0-15.0) % Plt Count 288 (150-400) K/uL MPV 8.60 (7.40-12.00) fL Neut % (Auto) 56.9 (48.0-80.0) % Lymph % (Auto) 25.9 (16.0-40.0) % [place] % (Auto) 14.9 (0.0-15.0) % Eos % (Auto) 2.1 (0.0-7.0) % Baso % (Auto) 0.2 (0.0-1.5) % Neut # (Auto) 2.8 (1.4-5.7) K/uL Lymph # (Auto) 1.3 (0.6-2.4) K/uL [place] # (Auto) 0.7 (0.0-0.8) K/uL Eos # (Auto) 0.1 (0.0-0.7) K/uL Baso # (Auto) 0.0 (0.0-0.1) K/uL Nucleated RBC % 0.0 /100WBC Nucleated RBCs # 0 K/uL Sodium 143 (136-148) mmol/L Potassium 3.6 (3.5-5.1) mmol/L Chloride 114 H (98-107) mmol/L Carbon Dioxide 15.8 L (21.0-32.0) mmol/L BUN 9 (7.0-18.0) mg/dL Creatinine 1.2 (0.8-1.3) mg/dL Est Cr Clr Drug Dosing 58.26 mL/min Estimated GFR (MDRD) 58.7 ml/min Glucose 74 (74-106) mg/dL Calcium 7.1 L (8.5-10.1) mg/dL Phosphorus 3.3 (2.6-4.7) mg/dL Magnesium 1.6 L (1.8-2.4) mg/dL Med Orders - Current: Current Medications Acetaminophen (Tylenol) 650 mg PO Q4H PRN PRN Reason: Pain (Mild 1-3)/fever Heparin Sodium (Porcine) (Heparin Sodium) 5,000 units SUBCUT Q8H [facility] Last Admin: 09/10/19 12:03 Dose: 5,000 units Metronidazole 500 mg/ Premix 100 mls @ 100 mls/hr IV Q8H [facility] Last Admin: 09/10/19 10:11 Dose: 100 mls/hr Ondansetron HCl (Zofran Odt) 4 mg PO Q4H PRN PRN Reason: nausea, able to take PO Last Admin: 09/06/19 10:46 Dose: 4 mg Ondansetron HCl (Zofran) 4 mg IVPUSH Q4H PRN PRN Reason: Nausea Propranolol HCl (Inderal La) 160 mg PO BEDTIME [facility] Last Admin: 09/09/19 20:41 Dose: 160 mg Vancomycin HCl (First-Vancomycin 25 Compounding Kit) 125 mg PO QID [facility] Last Admin: 09/10/19 12:02 Dose: 125 mg Discontinued Medications Sodium Chloride (Normal Saline) 1,000 mls @ 999 mls/hr IV STAT ONE Stop: 09/05/19 13:12 Last Admin: 09/05/19 12:22 Dose: 999 mls/hr Sodium Chloride (Normal Saline) 1,000 mls @ 75 mls/hr IV STAT [facility] Last Admin: 09/10/19 00:06 Dose: 75 mls/hr Potassium Chloride 40 meq/ (Sodium Chloride) 350 mls @ 87.5 mls/hr IV ONETIME ONE Stop: 09/05/19 16:29 Last Admin: 09/05/19 13:10 Dose: Not Given Magnesium Sulfate 2 gm/ Premix 50 mls @ 25 mls/hr IV ONETIME ONE Stop: 09/05/19 14:29 Last Admin: 09/05/19 12:56 Dose: 25 mls/hr Potassium Chloride 40 meq/ (Sodium Chloride) 270 mls @ 67.5 mls/hr IV ONETIME ONE Stop: 09/05/19 16:29 Last Admin: 09/05/19 14:52 Dose: 67.5 mls/hr Potassium Chloride 40 meq/ (Sodium Chloride) 270 mls @ 67.5 mls/hr IV ONETIME ONE Stop: 09/06/19 13:29 Last Admin: 09/06/19 10:03 Dose: 67.5 mls/hr Magnesium Sulfate 2 gm/ Premix 50 mls @ 25 mls/hr IV ONETIME ONE Stop: 09/06/19 10:58 Last Admin: 09/06/19 10:03 Dose: 25 mls/hr Potassium Chloride 40 meq/ (Sodium Chloride) 520 mls @ 130 mls/hr IV ONETIME ONE Stop: 09/07/19 12:29 Last Admin: 09/07/19 09:01 Dose: 130 mls/hr Magnesium Sulfate 2 gm/ Premix 50 mls @ 25 mls/hr IV ONETIME ONE Stop: 09/08/19 09:09 Last Admin: 09/08/19 07:22 Dose: 25 mls/hr Potassium Chloride 40 meq/ (Premix) 100 mls @ 25 mls/hr IV ONETIME ONE Stop: 09/09/19 14:03 Last Admin: 09/09/19 12:35 Dose: 25 mls/hr Metronidazole (Flagyl 500 Mg In Ns 100 Ml) Confirm Administered Dose 100 mls @ as directed .ROUTE .STK-MED ONE Stop: 09/10/19 03:20 Last Admin: 09/10/19 03:41 Dose: Not Given Magnesium Sulfate 2 gm/ Premix 50 mls @ 25 mls/hr IV ONETIME ONE Stop: 09/10/19 11:54 Last Admin: 09/10/19 10:21 Dose: 25 mls/hr Potassium Chloride (Klor-Con M20) 20 meq PO ONETIME ONE Stop: 09/05/19 12:15 Last Admin: 09/05/19 12:35 Dose: 20 meq Potassium Chloride (Klor-Con M20) 40 meq PO ONETIME ONE Stop: 09/06/19 09:07 Last Admin: 09/06/19 10:02 Dose: 40 meq Sodium Phosphate (Neutra-Phos) 250 mg PO QID [facility] Stop: 09/08/19 06:01 Last Admin: 09/08/19 05:50 Dose: 250 mg - Exam General: Alert, Oriented HEENT: EOMI Neck: Supple Lungs: Clear to Auscultation, Normal Respiratory Effort Cardiovascular: Regular Rate, Regular Rhythm GI/Abdominal Exam: Other (minimal lower abdominal tenderness ; hyperactive BS ) Neurological: No New Focal Deficit Psy/Mental Status: Normal Affect, Normal Mood Sepsis Event Note - Evaluation Sepsis Screening Result: No Definite Risk - Focused Exam Vital Signs: Vital Signs Temp Pulse Resp BP Pulse Ox 09/10/19 11:00 97.7 F 68 16 146/63 H 97 09/10/19 07:00 98.8 F 72 15 126/72 97 09/10/19 03:00 98.3 F 14 145/67 H 96 Date Exam was Performed: 09/10/19 Time Exam was Performed: 13:25 - Problem List Review Problem List Initiated/Reviewed/Updated: Yes - Plan Plan:: 1. C. Diff colitis: Continue PO vancomycin 125 mg PO q6 day # 5, continue IV Flagyl given diarrhea isn't improving much, Hold IVF ; advance diet to soft mechanical continue monitor and replete electrolytes 2. Acute symptomatic normocytic anemia s/p transfusion 2 units PRBC's: Hemoglobin this AM is 9.4, no gross blood in stool, no black stools, will continue to trend daily, hold Apixaban 3. Pancreatic cancer with liver mets on chemotherapy: Patient gets chemotherapy infusion every 2 weeks. 4. VTE prophylaxis: Heparin 5,000 units subcut q8h. 5. Magnesium repleted: IV piggy back 2 grams; Contrinue to moitor for today as pt. is still having increasing BM/soft; anticipating some improvement w/ solid foods. <Gt Durán - Last Filed: 09/15/19 11:48> - Patient Data Vitals - Most Recent: Last Vital Signs Temp 37.1 C 09/13/19 12:00 Pulse 70 09/13/19 12:00 Resp 18 09/13/19 12:00 BP 146/81 H 09/13/19 12:00 Pulse Ox 97 09/13/19 12:00 Med Orders - Current: Current Medications Discontinued Medications Acetaminophen (Tylenol) 650 mg PO Q4H PRN PRN Reason: Pain (Mild 1-3)/fever Last Admin: 09/11/19 07:33 Dose: 650 mg Apixaban (Eliquis) 5 mg PO BID [facility] Last Admin: 09/13/19 09:37 Dose: 5 mg Dronabinol (Marinol) 2.5 mg PO BID [facility] Last Admin: 09/13/19 09:36 Dose: 2.5 mg Heparin Sodium (Porcine) (Heparin Sodium) 5,000 units SUBCUT Q8H [facility] Last Admin: 09/11/19 05:20 Dose: 5,000 units Heparin Sodium (Porcine) (Heparin Lock Flush 100 Units/Ml) 500 units FLUSH ASDIRECTED ONE Stop: 09/13/19 14:27 Last Admin: 09/13/19 15:04 Dose: 500 units Sodium Chloride (Normal Saline) 1,000 mls @ 999 mls/hr IV STAT ONE Stop: 09/05/19 13:12 Last Admin: 09/05/19 12:22 Dose: 999 mls/hr Sodium Chloride (Normal Saline) 1,000 mls @ 75 mls/hr IV STAT [facility] Last Admin: 09/10/19 00:06 Dose: 75 mls/hr Potassium Chloride 40 meq/ (Sodium Chloride) 350 mls @ 87.5 mls/hr IV ONETIME ONE Stop: 09/05/19 16:29 Last Admin: 09/05/19 13:10 Dose: Not Given Magnesium Sulfate 2 gm/ Premix 50 mls @ 25 mls/hr IV ONETIME ONE Stop: 09/05/19 14:29 Last Admin: 09/05/19 12:56 Dose: 25 mls/hr Potassium Chloride 40 meq/ (Sodium Chloride) 270 mls @ 67.5 mls/hr IV ONETIME ONE Stop: 09/05/19 16:29 Last Admin: 09/05/19 14:52 Dose: 67.5 mls/hr Potassium Chloride 40 meq/ (Sodium Chloride) 270 mls @ 67.5 mls/hr IV ONETIME ONE Stop: 09/06/19 13:29 Last Admin: 09/06/19 10:03 Dose: 67.5 mls/hr Magnesium Sulfate 2 gm/ Premix 50 mls @ 25 mls/hr IV ONETIME ONE Stop: 09/06/19 10:58 Last Admin: 09/06/19 10:03 Dose: 25 mls/hr Potassium Chloride 40 meq/ (Sodium Chloride) 520 mls @ 130 mls/hr IV ONETIME ONE Stop: 09/07/19 12:29 Last Admin: 09/07/19 09:01 Dose: 130 mls/hr Magnesium Sulfate 2 gm/ Premix 50 mls @ 25 mls/hr IV ONETIME ONE Stop: 09/08/19 09:09 Last Admin: 09/08/19 07:22 Dose: 25 mls/hr Metronidazole 500 mg/ Premix 100 mls @ 100 mls/hr IV Q8H [facility] Last Admin: 09/13/19 10:11 Dose: 100 mls/hr Potassium Chloride 40 meq/ (Premix) 100 mls @ 25 mls/hr IV ONETIME ONE Stop: 09/09/19 14:03 Last Admin: 09/09/19 12:35 Dose: 25 mls/hr Metronidazole (Flagyl 500 Mg In Ns 100 Ml) Confirm Administered Dose 100 mls @ as directed .ROUTE .STK-MED ONE Stop: 09/10/19 03:20 Last Admin: 09/10/19 03:41 Dose: Not Given Magnesium Sulfate 2 gm/ Premix 50 mls @ 25 mls/hr IV ONETIME ONE Stop: 09/10/19 11:54 Last Admin: 09/10/19 10:21 Dose: 25 mls/hr Magnesium Sulfate 2 gm/ Premix 50 mls @ 25 mls/hr IV ONETIME ONE Stop: 09/11/19 09:39 Last Admin: 09/11/19 08:21 Dose: 25 mls/hr Calcium Gluconate 1 gm/ (Dextrose/Water) 60 mls @ 360 mls/hr IV ONETIME ONE Stop: 09/13/19 09:09 Last Admin: 09/13/19 09:39 Dose: 360 mls/hr Ondansetron HCl (Zofran Odt) 4 mg PO Q4H PRN PRN Reason: nausea, able to take PO Last Admin: 09/06/19 10:46 Dose: 4 mg Ondansetron HCl (Zofran) 4 mg IVPUSH Q4H PRN PRN Reason: Nausea Last Admin: 09/10/19 21:49 Dose: 4 mg Ondansetron HCl (Zofran Odt) 4 mg PO Q4H PRN PRN Reason: Nausea/Vomiting Last Admin: 09/12/19 23:19 Dose: 4 mg Potassium Chloride (Klor-Con M20) 20 meq PO ONETIME ONE Stop: 09/05/19 12:15 Last Admin: 09/05/19 12:35 Dose: 20 meq Potassium Chloride (Klor-Con M20) 40 meq PO ONETIME ONE Stop: 09/06/19 09:07 Last Admin: 09/06/19 10:02 Dose: 40 meq Potassium Chloride (Klor-Con M20) 40 meq PO ONETIME ONE Stop: 09/11/19 07:40 Last Admin: 09/11/19 08:21 Dose: 40 meq Potassium Chloride (Klor-Con 10) 40 meq PO ONETIME ONE Stop: 09/12/19 08:12 Last Admin: 09/12/19 08:26 Dose: 40 meq Potassium Chloride (Klor-Con M20) 40 meq PO ONETIME ONE Stop: 09/13/19 08:21 Last Admin: 09/13/19 09:36 Dose: 40 meq Propranolol HCl (Inderal La) 160 mg PO BEDTIME [facility] Last Admin: 09/12/19 20:30 Dose: 160 mg Sodium Phosphate (Neutra-Phos) 250 mg PO QID [facility] Stop: 09/08/19 06:01 Last Admin: 09/08/19 05:50 Dose: 250 mg Vancomycin HCl (First-Vancomycin 25 Compounding Kit) 125 mg PO QID [facility] Last Admin: 09/13/19 12:21 Dose: 125 mg - Problem List & Annotations (1) C. 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
[2019-09-10] MEDS: Propranolol 80 MG Cap.ER PO SCH (23:27)
[2019-09-11] MEDS: metroNIDAZOLE/Normal Saline 500 MG in Premix Bag 1 BAG IV SCH ×3 (02:21→18:22)
[2019-09-11] MEDS: Heparin Sodium 5,000 Units/ML Vial SUBCUT SCH (05:20)
[2019-09-11] MEDS: Vancomycin 25 MG/ML Compounding Kit PO SCH ×3 (06:30→18:21)
[2019-09-11 07:11] LABS: CARBON DIOXIDE,CO2 17.8 mmol/L (21.0-32.0); POTASSIUM,K 3.1 mmol/L (3.5-5.1)
[2019-09-11] MEDS ORDERED: Potassium Chloride 20 MEQ Tab.ER PO ONE (07:39)
[2019-09-11] MEDS ORDERED: Magnesium Sulfate/Water 2 GM in Premix Bag 1 BAG IV ONE (07:40)
--- NOTE | 2019-09-11 11:34 | PCM.PN ---
<Eliud Miner - Last Filed: 09/11/19 11:36> - General Info Date of Service: 09/11/19 Subjective Update: Currently on day 7 of admission: Mentions interval improvement of his nausea and diarrhea however still complaining of low appetite. Mentions after starting a more solid food regimen states the caliber of her stools have improved however still having diarrhea and lower abdominal discomfort. Patient has no other issues or complaints at this time - Review of Systems General: Reports: No Symptoms HEENT: Reports: No Symptoms Pulmonary: Reports: No Symptoms Cardiovascular: Reports: No Symptoms. Denies: Chest Pain, Palpitations Gastrointestinal: Reports: Abdominal Pain, Diarrhea, Nausea. Denies: Constipation, Vomiting Genitourinary: Denies: Dysuria, Frequency Skin: Reports: No Symptoms Neurological: Denies: Dizziness, Headache - Patient Data Vitals - Most Recent: Last Vital Signs Temp 99.1 F 09/11/19 07:41 Pulse 87 09/11/19 07:41 Resp 18 09/11/19 07:41 BP 116/62 09/11/19 08:40 Pulse Ox 97 09/11/19 07:41 Weight - Most Recent: 89.5 kg I&O - Last 24 Hours: Intake & Output 09/10/19 09/11/19 09/11/19 22:59 06:59 14:59 Intake Total 500 400 Balance 500 400 Lab Results Last 24 Hours: Laboratory Results - last 24 hr 09/11/19 09/11/19 Range/Units 06:36 06:36 WBC 6.66 (4.0-11.0) K/uL RBC 3.57 L (4.50-5.90) M/uL Hgb 9.6 L (13.0-17.0) g/dL Hct 30.2 L (38.0-50.0) % MCV 84.6 (80.0-98.0) fL MCH 26.9 L (27.0-32.0) pg MCHC 31.8 (31.0-37.0) g/dL RDW Std Deviation 56.6 (28.0-62.0) fl RDW Coeff of Arnaud 18 H (11.0-15.0) % Plt Count 212 (150-400) K/uL MPV 8.60 (7.40-12.00) fL Neut % (Auto) 78.1 (48.0-80.0) % Lymph % (Auto) 12.5 L (16.0-40.0) % [place] % (Auto) 8.6 (0.0-15.0) % Eos % (Auto) 0.6 (0.0-7.0) % Baso % (Auto) 0.2 (0.0-1.5) % Neut # (Auto) 5.2 (1.4-5.7) K/uL Lymph # (Auto) 0.8 (0.6-2.4) K/uL [place] # (Auto) 0.6 (0.0-0.8) K/uL Eos # (Auto) 0.0 (0.0-0.7) K/uL Baso # (Auto) 0.0 (0.0-0.1) K/uL Nucleated RBC % 0.0 /100WBC Nucleated RBCs # 0 K/uL Sodium 141 (136-148) mmol/L Potassium 3.1 L (3.5-5.1) mmol/L Chloride 112 H (98-107) mmol/L Carbon Dioxide 17.8 L (21.0-32.0) mmol/L BUN 7 (7.0-18.0) mg/dL Creatinine 1.2 (0.8-1.3) mg/dL Est Cr Clr Drug Dosing 58.26 mL/min Estimated GFR (MDRD) 58.7 ml/min Glucose 107 H (74-106) mg/dL Calcium 7.5 L (8.5-10.1) mg/dL Magnesium 1.7 L (1.8-2.4) mg/dL Total Bilirubin 0.5 (0.2-1.0) mg/dL AST 23 (15-37) IU/L ALT 13 L (14-63) IU/L Alkaline Phosphatase 63 (46-116) U/L Total Protein 4.1 L (6.4-8.2) g/dL Albumin 1.5 L (3.4-5.0) g/dL Globulin 2.6 (2.6-4.0) g/dL Albumin/Globulin Ratio 0.6 L (0.9-1.6) Med Orders - Current: Current Medications Acetaminophen (Tylenol) 650 mg PO Q4H PRN PRN Reason: Pain (Mild 1-3)/fever Last Admin: 09/11/19 07:33 Dose: 650 mg Apixaban (Eliquis) 5 mg PO BID [facility] Metronidazole 500 mg/ Premix 100 mls @ 100 mls/hr IV Q8H [facility] Last Admin: 09/11/19 11:25 Dose: 100 mls/hr Ondansetron HCl (Zofran Odt) 4 mg PO Q4H PRN PRN Reason: nausea, able to take PO Last Admin: 09/06/19 10:46 Dose: 4 mg Ondansetron HCl (Zofran) 4 mg IVPUSH Q4H PRN PRN Reason: Nausea Last Admin: 09/10/19 21:49 Dose: 4 mg Propranolol HCl (Inderal La) 160 mg PO BEDTIME [facility] Last Admin: 09/10/19 23:27 Dose: 160 mg Vancomycin HCl (First-Vancomycin 25 Compounding Kit) 125 mg PO QID [facility] Last Admin: 09/11/19 11:25 Dose: 125 mg Discontinued Medications Heparin Sodium (Porcine) (Heparin Sodium) 5,000 units SUBCUT Q8H [facility] Last Admin: 09/11/19 05:20 Dose: 5,000 units Sodium Chloride (Normal Saline) 1,000 mls @ 999 mls/hr IV STAT ONE Stop: 09/05/19 13:12 Last Admin: 09/05/19 12:22 Dose: 999 mls/hr Sodium Chloride (Normal Saline) 1,000 mls @ 75 mls/hr IV STAT [facility] Last Admin: 09/10/19 00:06 Dose: 75 mls/hr Potassium Chloride 40 meq/ (Sodium Chloride) 350 mls @ 87.5 mls/hr IV ONETIME ONE Stop: 09/05/19 16:29 Last Admin: 09/05/19 13:10 Dose: Not Given Magnesium Sulfate 2 gm/ Premix 50 mls @ 25 mls/hr IV ONETIME ONE Stop: 09/05/19 14:29 Last Admin: 09/05/19 12:56 Dose: 25 mls/hr Potassium Chloride 40 meq/ (Sodium Chloride) 270 mls @ 67.5 mls/hr IV ONETIME ONE Stop: 09/05/19 16:29 Last Admin: 09/05/19 14:52 Dose: 67.5 mls/hr Potassium Chloride 40 meq/ (Sodium Chloride) 270 mls @ 67.5 mls/hr IV ONETIME ONE Stop: 09/06/19 13:29 Last Admin: 09/06/19 10:03 Dose: 67.5 mls/hr Magnesium Sulfate 2 gm/ Premix 50 mls @ 25 mls/hr IV ONETIME ONE Stop: 09/06/19 10:58 Last Admin: 09/06/19 10:03 Dose: 25 mls/hr Potassium Chloride 40 meq/ (Sodium Chloride) 520 mls @ 130 mls/hr IV ONETIME ONE Stop: 09/07/19 12:29 Last Admin: 09/07/19 09:01 Dose: 130 mls/hr Magnesium Sulfate 2 gm/ Premix 50 mls @ 25 mls/hr IV ONETIME ONE Stop: 09/08/19 09:09 Last Admin: 09/08/19 07:22 Dose: 25 mls/hr Potassium Chloride 40 meq/ (Premix) 100 mls @ 25 mls/hr IV ONETIME ONE Stop: 09/09/19 14:03 Last Admin: 09/09/19 12:35 Dose: 25 mls/hr Metronidazole (Flagyl 500 Mg In Ns 100 Ml) Confirm Administered Dose 100 mls @ as directed .ROUTE .STK-MED ONE Stop: 09/10/19 03:20 Last Admin: 09/10/19 03:41 Dose: Not Given Magnesium Sulfate 2 gm/ Premix 50 mls @ 25 mls/hr IV ONETIME ONE Stop: 09/10/19 11:54 Last Admin: 09/10/19 10:21 Dose: 25 mls/hr Magnesium Sulfate 2 gm/ Premix 50 mls @ 25 mls/hr IV ONETIME ONE Stop: 09/11/19 09:39 Last Admin: 09/11/19 08:21 Dose: 25 mls/hr Potassium Chloride (Klor-Con M20) 20 meq PO ONETIME ONE Stop: 09/05/19 12:15 Last Admin: 09/05/19 12:35 Dose: 20 meq Potassium Chloride (Klor-Con M20) 40 meq PO ONETIME ONE Stop: 09/06/19 09:07 Last Admin: 09/06/19 10:02 Dose: 40 meq Potassium Chloride (Klor-Con M20) 40 meq PO ONETIME ONE Stop: 09/11/19 07:40 Last Admin: 09/11/19 08:21 Dose: 40 meq Sodium Phosphate (Neutra-Phos) 250 mg PO QID [facility] Stop: 09/08/19 06:01 Last Admin: 09/08/19 05:50 Dose: 250 mg - Exam General: Alert, Oriented HEENT: EOMI Neck: Supple Lungs: Clear to Auscultation, Normal Respiratory Effort Cardiovascular: Regular Rate, Regular Rhythm GI/Abdominal Exam: Other (Minimal lower abdominal tenderness with no rebound tenderness. No flank tenderness. No organomegaly appreciated) Back Exam: Normal Inspection Skin: Warm Neurological: No New Focal Deficit Psy/Mental Status: Alert, Normal Mood Sepsis Event Note - Evaluation Sepsis Screening Result: No Definite Risk - Focused Exam Vital Signs: Vital Signs Temp Pulse Resp BP BP Pulse Ox 09/11/19 08:40 116/62 09/11/19 07:41 99.1 F 87 18 184/97 H 97 09/11/19 05:28 99.5 F 79 18 135/75 95 09/11/19 00:00 99.5 F 81 15 154/82 H 96 Date Exam was Performed: 09/11/19 Time Exam was Performed: 11:36 - Problem List Review Problem List Initiated/Reviewed/Updated: Yes - Plan Plan:: 1. C. Diff colitis: Continue PO vancomycin 125 mg PO q6 day # 6, continue IV Flagyl : Frequency of bowel movement's improving from 5-2; continue to hold IVF ; advance diet to soft mechanical; continue monitor and replete electrolytes 2. Acute symptomatic normocytic anemia s/p transfusion 2 units PRBC': Hgb Improved : Eliquis restarted 3. Pancreatic cancer with liver mets on chemotherapy: Patient gets chemotherapy infusion every 2 weeks. Will most likely have to delay next infusion; will speak w. patients Heme-Onc physician in [place]; Dr. Edward. 4. Heparin Discontinued 5. Magnesium repleted: IV piggy back 2 grams; Hypokalemia: repleted w/ 40 mg K+ Continue to monitor for today as pt. is still having soft BM/nausea and decreased appetite; anticipating some improvement w/ solid foods. Patient will go home with home health at discharge <Gt Durán - Last Filed: 09/15/19 11:49> - Patient Data Vitals - Most Recent: Last Vital Signs Temp 37.1 C 12/19/19 12:00 Pulse 70 09/13/19 12:00 Resp 18 09/13/19 12:00 BP 146/81 H 09/13/19 12:00 Pulse Ox 97 09/13/19 12:00 Med Orders - Current: Current Medications Discontinued Medications Acetaminophen (Tylenol) 650 mg PO Q4H PRN PRN Reason: Pain (Mild 1-3)/fever Last Admin: 09/11/19 07:33 Dose: 650 mg Apixaban (Eliquis) 5 mg PO BID [facility] Last Admin: 09/13/19 09:37 Dose: 5 mg Dronabinol (Marinol) 2.5 mg PO BID [facility] Last Admin: 09/13/19 09:36 Dose: 2.5 mg Heparin Sodium (Porcine) (Heparin Sodium) 5,000 units SUBCUT Q8H [facility] Last Admin: 09/11/19 05:20 Dose: 5,000 units Heparin Sodium (Porcine) (Heparin Lock Flush 100 Units/Ml) 500 units FLUSH ASDIRECTED ONE Stop: 09/13/19 14:27 Last Admin: 09/13/19 15:04 Dose: 500 units Sodium Chloride (Normal Saline) 1,000 mls @ 999 mls/hr IV STAT ONE Stop: 09/05/19 13:12 Last Admin: 09/05/19 12:22 Dose: 999 mls/hr Sodium Chloride (Normal Saline) 1,000 mls @ 75 mls/hr IV STAT [facility] Last Admin: 09/10/19 00:06 Dose: 75 mls/hr Potassium Chloride 40 meq/ (Sodium Chloride) 350 mls @ 87.5 mls/hr IV ONETIME ONE Stop: 09/05/19 16:29 Last Admin: 09/05/19 13:10 Dose: Not Given Magnesium Sulfate 2 gm/ Premix 50 mls @ 25 mls/hr IV ONETIME ONE Stop: 09/05/19 14:29 Last Admin: 09/05/19 12:56 Dose: 25 mls/hr Potassium Chloride 40 meq/ (Sodium Chloride) 270 mls @ 67.5 mls/hr IV ONETIME ONE Stop: 09/05/19 16:29 Last Admin: 09/05/19 14:52 Dose: 67.5 mls/hr Potassium Chloride 40 meq/ (Sodium Chloride) 270 mls @ 67.5 mls/hr IV ONETIME ONE Stop: 09/06/19 13:29 Last Admin: 09/06/19 10:03 Dose: 67.5 mls/hr Magnesium Sulfate 2 gm/ Premix 50 mls @ 25 mls/hr IV ONETIME ONE Stop: 09/06/19 10:58 Last Admin: 09/06/19 10:03 Dose: 25 mls/hr Potassium Chloride 40 meq/ (Sodium Chloride) 520 mls @ 130 mls/hr IV ONETIME ONE Stop: 09/07/19 12:29 Last Admin: 09/07/19 09:01 Dose: 130 mls/hr Magnesium Sulfate 2 gm/ Premix 50 mls @ 25 mls/hr IV ONETIME ONE Stop: 09/08/19 09:09 Last Admin: 09/08/19 07:22 Dose: 25 mls/hr Metronidazole 500 mg/ Premix 100 mls @ 100 mls/hr IV Q8H ROBY Last Admin: 09/13/19 10:11 Dose: 100 mls/hr Potassium Chloride 40 meq/ (Premix) 100 mls @ 25 mls/hr IV ONETIME ONE Stop: 09/09/19 14:03 Last Admin: 09/09/19 12:35 Dose: 25 mls/hr Metronidazole (Flagyl 500 Mg In Ns 100 Ml) Confirm Administered Dose 100 mls @ as directed .ROUTE .STK-MED ONE Stop: 09/10/19 03:20 Last Admin: 09/10/19 03:41 Dose: Not Given Magnesium Sulfate 2 gm/ Premix 50 mls @ 25 mls/hr IV ONETIME ONE Stop: 09/10/19 11:54 Last Admin: 09/10/19 10:21 Dose: 25 mls/hr Magnesium Sulfate 2 gm/ Premix 50 mls @ 25 mls/hr IV ONETIME ONE Stop: 09/11/19 09:39 Last Admin: 09/11/19 08:21 Dose: 25 mls/hr Calcium Gluconate 1 gm/ (Dextrose/Water) 60 mls @ 360 mls/hr IV ONETIME ONE Stop: 09/13/19 09:09 Last Admin: 09/13/19 09:39 Dose: 360 mls/hr Ondansetron HCl (Zofran Odt) 4 mg PO Q4H PRN PRN Reason: nausea, able to take PO Last Admin: 09/06/19 10:46 Dose: 4 mg Ondansetron HCl (Zofran) 4 mg IVPUSH Q4H PRN PRN Reason: Nausea Last Admin: 09/10/19 21:49 Dose: 4 mg Ondansetron HCl (Zofran Odt) 4 mg PO Q4H PRN PRN Reason: Nausea/Vomiting Last Admin: 09/12/19 23:19 Dose: 4 mg Potassium Chloride (Klor-Con M20) 20 meq PO ONETIME ONE Stop: 09/05/19 12:15 Last Admin: 09/05/19 12:35 Dose: 20 meq Potassium Chloride (Klor-Con M20) 40 meq PO ONETIME ONE Stop: 09/06/19 09:07 Last Admin: 09/06/19 10:02 Dose: 40 meq Potassium Chloride (Klor-Con M20) 40 meq PO ONETIME ONE Stop: 09/11/19 07:40 Last Admin: 09/11/19 08:21 Dose: 40 meq Potassium Chloride (Klor-Con 10) 40 meq PO ONETIME ONE Stop: 09/12/19 08:12 Last Admin: 09/12/19 08:26 Dose: 40 meq Potassium Chloride (Klor-Con M20) 40 meq PO ONETIME ONE Stop: 09/13/19 08:21 Last Admin: 09/13/19 09:36 Dose: 40 meq Propranolol HCl (Inderal La) 160 mg PO BEDTIME [facility] Last Admin: 09/12/19 20:30 Dose: 160 mg Sodium Phosphate (Neutra-Phos) 250 mg PO QID [facility] Stop: 09/08/19 06:01 Last Admin: 09/08/19 05:50 Dose: 250 mg Vancomycin HCl (First-Vancomycin 25 Compounding Kit) 125 mg PO QID [facility] Last Admin: 09/13/19 12:21 Dose: 125 mg - Problem List & Annotations (1) C. difficile colitis SNOMED Code(s): 662605721 Code(s): A04.72 - ENTEROCOLITIS D/T CLOSTRIDIUM DIFFICILE, NOT SPCF RECUR Status: Acute (2) Dehydration SNOMED Code(s): 71107065 Code(s): E86.0 - DEHYDRATION Status: Acute (3) Immunosuppression SNOMED Code(s): 14931088 Code(s): D89.9 - DISORDER INVOLVING THE IMMUNE MECHANISM, UNSPECIFIED Status: Acute (4) Anemia associated with chemotherapy Status: Chronic Priority: High - Plan Plan:: I have seen and evaluated the patient and agree with the residents note unless specified in my note
[2019-09-11] MEDS: Propranolol 80 MG Cap.ER PO SCH (21:18)
[2019-09-11] MEDS: Apixaban 5 MG Tab PO SCH (21:19)
[2019-09-12] MEDS: Vancomycin 25 MG/ML Compounding Kit PO SCH ×5 (00:05→23:08)
[2019-09-12] MEDS: metroNIDAZOLE/Normal Saline 500 MG in Premix Bag 1 BAG IV SCH ×3 (02:40→19:04)
[2019-09-12 06:39] LABS: CARBON DIOXIDE,CO2 18.7 mmol/L (21.0-32.0); POTASSIUM,K 3.2 mmol/L (3.5-5.1)
[2019-09-12] MEDS ORDERED: Potassium Chloride 10 MEQ Tab.ER PO ONE (08:11)
[2019-09-12] MEDS: Apixaban 5 MG Tab PO SCH ×2 (08:26→20:30)
[2019-09-12] MEDS ORDERED: Ondansetron 4 MG Tab.DIS PO PRN (10:06)
[2019-09-12] MEDS: Dronabinol 2.5 MG Cap PO SCH ×2 (11:52→20:30)
--- NOTE | 2019-09-12 16:17 | PCM.PN ---
<Eliud Miner - Last Filed: 09/12/19 16:12> - General Info Date of Service: 09/12/19 Subjective Update: patient seen at bedside; endorsed feeling fatigued despite trying to walk around medical floors. Complaining of continual nausea despite Zofran; still complaining of low appetite. Not endorsing any pain at this time Repeat evaluation in afternoon; unchanged from this AM; trying to drink more of his smoothie - Review of Systems General: Reports: Fatigue. Denies: Fever, Chills HEENT: Reports: No Symptoms Pulmonary: Reports: No Symptoms Cardiovascular: Denies: Chest Pain, Palpitations Gastrointestinal: Reports: Abdominal Pain, Decreased Appetite, Diarrhea, Flatus , Nausea. Denies: Constipation, Melena, Vomiting Genitourinary: Denies: Dysuria, Frequency Musculoskeletal: Denies: Back Pain Psychiatric: Denies: Agitation - Patient Data Vitals - Most Recent: Last Vital Signs Temp 98.5 F 09/12/19 07:32 Pulse 71 09/12/19 07:32 Resp 16 09/12/19 07:32 BP 135/75 09/12/19 07:32 Pulse Ox 95 09/12/19 07:32 Weight - Most Recent: 89.5 kg I&O - Last 24 Hours: Intake & Output 09/12/19 09/12/19 09/12/19 06:59 14:59 22:59 Intake Total 700 100 Balance 700 100 Lab Results Last 24 Hours: Laboratory Results - last 24 hr 09/12/19 09/12/19 09/12/19 Range/Units 05:55 05:55 05:55 WBC 6.74 (4.0-11.0) K/uL RBC 3.56 L (4.50-5.90) M/uL Hgb 9.7 L (13.0-17.0) g/dL Hct 30.2 L (38.0-50.0) % MCV 84.8 (80.0-98.0) fL MCH 27.2 (27.0-32.0) pg MCHC 32.1 (31.0-37.0) g/dL RDW Std Deviation 57.7 (28.0-62.0) fl RDW Coeff of Arnaud 19 H (11.0-15.0) % Plt Count 184 (150-400) K/uL MPV 8.50 (7.40-12.00) fL Neut % (Auto) 69.8 (48.0-80.0) % Lymph % (Auto) 13.9 L (16.0-40.0) % [place] % (Auto) 14.4 (0.0-15.0) % Eos % (Auto) 1.6 (0.0-7.0) % Baso % (Auto) 0.3 (0.0-1.5) % Neut # (Auto) 4.7 (1.4-5.7) K/uL Lymph # (Auto) 0.9 (0.6-2.4) K/uL [place] # (Auto) 1.0 H (0.0-0.8) K/uL Eos # (Auto) 0.1 (0.0-0.7) K/uL Baso # (Auto) 0.0 (0.0-0.1) K/uL Nucleated RBC % 0.0 /100WBC Nucleated RBCs # 0 K/uL Sodium 141 (136-148) mmol/L Potassium 3.2 L (3.5-5.1) mmol/L Chloride 113 H (98-107) mmol/L Carbon Dioxide 18.7 L (21.0-32.0) mmol/L BUN 7 (7.0-18.0) mg/dL Creatinine 1.2 (0.8-1.3) mg/dL Est Cr Clr Drug Dosing 58.26 mL/min Estimated GFR (MDRD) 58.7 ml/min Glucose 103 (74-106) mg/dL Calcium 7.7 L (8.5-10.1) mg/dL Magnesium 2.1 (1.8-2.4) mg/dL Total Bilirubin 0.4 (0.2-1.0) mg/dL AST 17 (15-37) IU/L ALT 14 (14-63) IU/L Alkaline Phosphatase 58 (46-116) U/L Total Protein 4.0 L (6.4-8.2) g/dL Albumin 1.5 L (3.4-5.0) g/dL Globulin 2.5 L (2.6-4.0) g/dL Albumin/Globulin Ratio 0.6 L (0.9-1.6) Med Orders - Current: Current Medications Acetaminophen (Tylenol) 650 mg PO Q4H PRN PRN Reason: Pain (Mild 1-3)/fever Last Admin: 09/11/19 07:33 Dose: 650 mg Apixaban (Eliquis) 5 mg PO BID [facility] Last Admin: 09/12/19 08:26 Dose: 5 mg Dronabinol (Marinol) 2.5 mg PO BID [facility] Last Admin: 09/12/19 11:52 Dose: 2.5 mg Metronidazole 500 mg/ Premix 100 mls @ 100 mls/hr IV Q8H [facility] Last Admin: 09/12/19 10:16 Dose: 100 mls/hr Ondansetron HCl (Zofran Odt) 4 mg PO Q4H PRN PRN Reason: Nausea/Vomiting Propranolol HCl (Inderal La) 160 mg PO BEDTIME [facility] Last Admin: 09/11/19 21:18 Dose: 160 mg Vancomycin HCl (First-Vancomycin 25 Compounding Kit) 125 mg PO QID [facility] Last Admin: 09/12/19 11:52 Dose: 125 mg Discontinued Medications Heparin Sodium (Porcine) (Heparin Sodium) 5,000 units SUBCUT Q8H [facility] Last Admin: 09/11/19 05:20 Dose: 5,000 units Sodium Chloride (Normal Saline) 1,000 mls @ 999 mls/hr IV STAT ONE Stop: 09/05/19 13:12 Last Admin: 09/05/19 12:22 Dose: 999 mls/hr Sodium Chloride (Normal Saline) 1,000 mls @ 75 mls/hr IV STAT [facility] Last Admin: 09/10/19 00:06 Dose: 75 mls/hr Potassium Chloride 40 meq/ (Sodium Chloride) 350 mls @ 87.5 mls/hr IV ONETIME ONE Stop: 09/05/19 16:29 Last Admin: 09/05/19 13:10 Dose: Not Given Magnesium Sulfate 2 gm/ Premix 50 mls @ 25 mls/hr IV ONETIME ONE Stop: 09/05/19 14:29 Last Admin: 09/05/19 12:56 Dose: 25 mls/hr Potassium Chloride 40 meq/ (Sodium Chloride) 270 mls @ 67.5 mls/hr IV ONETIME ONE Stop: 09/05/19 16:29 Last Admin: 09/05/19 14:52 Dose: 67.5 mls/hr Potassium Chloride 40 meq/ (Sodium Chloride) 270 mls @ 67.5 mls/hr IV ONETIME ONE Stop: 09/06/19 13:29 Last Admin: 09/06/19 10:03 Dose: 67.5 mls/hr Magnesium Sulfate 2 gm/ Premix 50 mls @ 25 mls/hr IV ONETIME ONE Stop: 09/06/19 10:58 Last Admin: 09/06/19 10:03 Dose: 25 mls/hr Potassium Chloride 40 meq/ (Sodium Chloride) 520 mls @ 130 mls/hr IV ONETIME ONE Stop: 09/07/19 12:29 Last Admin: 09/07/19 09:01 Dose: 130 mls/hr Magnesium Sulfate 2 gm/ Premix 50 mls @ 25 mls/hr IV ONETIME ONE Stop: 09/08/19 09:09 Last Admin: 09/08/19 07:22 Dose: 25 mls/hr Potassium Chloride 40 meq/ (Premix) 100 mls @ 25 mls/hr IV ONETIME ONE Stop: 09/09/19 14:03 Last Admin: 09/09/19 12:35 Dose: 25 mls/hr Metronidazole (Flagyl 500 Mg In Ns 100 Ml) Confirm Administered Dose 100 mls @ as directed .ROUTE .STK-MED ONE Stop: 09/10/19 03:20 Last Admin: 09/10/19 03:41 Dose: Not Given Magnesium Sulfate 2 gm/ Premix 50 mls @ 25 mls/hr IV ONETIME ONE Stop: 09/10/19 11:54 Last Admin: 09/10/19 10:21 Dose: 25 mls/hr Magnesium Sulfate 2 gm/ Premix 50 mls @ 25 mls/hr IV ONETIME ONE Stop: 09/11/19 09:39 Last Admin: 09/11/19 08:21 Dose: 25 mls/hr Ondansetron HCl (Zofran Odt) 4 mg PO Q4H PRN PRN Reason: nausea, able to take PO Last Admin: 09/06/19 10:46 Dose: 4 mg Ondansetron HCl (Zofran) 4 mg IVPUSH Q4H PRN PRN Reason: Nausea Last Admin: 09/10/19 21:49 Dose: 4 mg Potassium Chloride (Klor-Con M20) 20 meq PO ONETIME ONE Stop: 09/05/19 12:15 Last Admin: 09/05/19 12:35 Dose: 20 meq Potassium Chloride (Klor-Con M20) 40 meq PO ONETIME ONE Stop: 09/06/19 09:07 Last Admin: 09/06/19 10:02 Dose: 40 meq Potassium Chloride (Klor-Con M20) 40 meq PO ONETIME ONE Stop: 09/11/19 07:40 Last Admin: 09/11/19 08:21 Dose: 40 meq Potassium Chloride (Klor-Con 10) 40 meq PO ONETIME ONE Stop: 09/12/19 08:12 Last Admin: 09/12/19 08:26 Dose: 40 meq Sodium Phosphate (Neutra-Phos) 250 mg PO QID [facility] Stop: 09/08/19 06:01 Last Admin: 09/08/19 05:50 Dose: 250 mg - Exam General: Alert, Oriented HEENT: EOMI Neck: Supple Lungs: Clear to Auscultation, Normal Respiratory Effort Cardiovascular: Regular Rate, Regular Rhythm GI/Abdominal Exam: Soft, Non-Tender, Other (hyperactive) Skin: Warm, Dry Psy/Mental Status: Alert, Normal Mood Sepsis Event Note - Evaluation Sepsis Screening Result: No Definite Risk - Focused Exam Vital Signs: Vital Signs Temp Pulse Resp BP Pulse Ox 09/12/19 07:32 98.5 F 71 16 135/75 95 Date Exam was Performed: 09/12/19 Time Exam was Performed: 16:12 - Problem List Review Problem List Initiated/Reviewed/Updated: Yes - Plan Plan:: 1. C. Diff colitis: Continue PO vancomycin 125 mg PO q6 day # 7, continue IV Flagyl : Frequency of bowel movement's improving from 5-2; continue to hold IVF ; advance diet to soft mechanical; continue monitor and replete electrolytes If symptoms of diarrhea continue tomorrow; will consider ID consult in [place] 2. Acute symptomatic normocytic anemia s/p transfusion 2 units PRBC': Hgb Improved : Eliquis restarted 3. Pancreatic cancer with liver mets on chemotherapy: Patient gets chemotherapy infusion every 2 weeks. Will most likely have to delay next infusion; will speak w. patients Heme-Onc physician in [place]; Dr. Edward. 4. Heparin Discontinued 5. Magnesium repleted: IV piggy back 2 grams; Hypokalemia: repleted w/ 40 mg K+ Continue to monitor for today as pt. is still having soft BM/nausea and decreased appetite; anticipating some improvement w/ solid foods. Patient will go home with home health at discharge <Gt Durán - Last Filed: 09/15/19 12:00> - Patient Data Vitals - Most Recent: Last Vital Signs Temp 37.1 C 09/13/19 12:00 Pulse 70 09/13/19 12:00 Resp 18 09/13/19 12:00 BP 146/81 H 09/13/19 12:00 Pulse Ox 97 09/13/19 12:00 Med Orders - Current: Current Medications Discontinued Medications Acetaminophen (Tylenol) 650 mg PO Q4H PRN PRN Reason: Pain (Mild 1-3)/fever Last Admin: 09/11/19 07:33 Dose: 650 mg Apixaban (Eliquis) 5 mg PO BID [facility] Last Admin: 09/13/19 09:37 Dose: 5 mg Dronabinol (Marinol) 2.5 mg PO BID [facility] Last Admin: 09/13/19 09:36 Dose: 2.5 mg Heparin Sodium (Porcine) (Heparin Sodium) 5,000 units SUBCUT Q8H [facility] Last Admin: 09/11/19 05:20 Dose: 5,000 units Heparin Sodium (Porcine) (Heparin Lock Flush 100 Units/Ml) 500 units FLUSH ASDIRECTED ONE Stop: 09/13/19 14:27 Last Admin: 09/13/19 15:04 Dose: 500 units Sodium Chloride (Normal Saline) 1,000 mls @ 999 mls/hr IV STAT ONE Stop: 09/05/19 13:12 Last Admin: 09/05/19 12:22 Dose: 999 mls/hr Sodium Chloride (Normal Saline) 1,000 mls @ 75 mls/hr IV STAT [facility] Last Admin: 09/10/19 00:06 Dose: 75 mls/hr Potassium Chloride 40 meq/ (Sodium Chloride) 350 mls @ 87.5 mls/hr IV ONETIME ONE Stop: 09/05/19 16:29 Last Admin: 09/05/19 13:10 Dose: Not Given Magnesium Sulfate 2 gm/ Premix 50 mls @ 25 mls/hr IV ONETIME ONE Stop: 09/05/19 14:29 Last Admin: 09/05/19 12:56 Dose: 25 mls/hr Potassium Chloride 40 meq/ (Sodium Chloride) 270 mls @ 67.5 mls/hr IV ONETIME ONE Stop: 09/05/19 16:29 Last Admin: 09/05/19 14:52 Dose: 67.5 mls/hr Potassium Chloride 40 meq/ (Sodium Chloride) 270 mls @ 67.5 mls/hr IV ONETIME ONE Stop: 09/06/19 13:29 Last Admin: 09/06/19 10:03 Dose: 67.5 mls/hr Magnesium Sulfate 2 gm/ Premix 50 mls @ 25 mls/hr IV ONETIME ONE Stop: 09/06/19 10:58 Last Admin: 09/06/19 10:03 Dose: 25 mls/hr Potassium Chloride 40 meq/ (Sodium Chloride) 520 mls @ 130 mls/hr IV ONETIME ONE Stop: 09/07/19 12:29 Last Admin: 09/07/19 09:01 Dose: 130 mls/hr Magnesium Sulfate 2 gm/ Premix 50 mls @ 25 mls/hr IV ONETIME ONE Stop: 09/08/19 09:09 Last Admin: 09/08/19 07:22 Dose: 25 mls/hr Metronidazole 500 mg/ Premix 100 mls @ 100 mls/hr IV Q8H [facility] Last Admin: 09/13/19 10:11 Dose: 100 mls/hr Potassium Chloride 40 meq/ (Premix) 100 mls @ 25 mls/hr IV ONETIME ONE Stop: 09/09/19 14:03 Last Admin: 09/09/19 12:35 Dose: 25 mls/hr Metronidazole (Flagyl 500 Mg In Ns 100 Ml) Confirm Administered Dose 100 mls @ as directed .ROUTE .STK-MED ONE Stop: 09/10/19 03:20 Last Admin: 09/10/19 03:41 Dose: Not Given Magnesium Sulfate 2 gm/ Premix 50 mls @ 25 mls/hr IV ONETIME ONE Stop: 09/10/19 11:54 Last Admin: 09/10/19 10:21 Dose: 25 mls/hr Magnesium Sulfate 2 gm/ Premix 50 mls @ 25 mls/hr IV ONETIME ONE Stop: 09/11/19 09:39 Last Admin: 09/11/19 08:21 Dose: 25 mls/hr Calcium Gluconate 1 gm/ (Dextrose/Water) 60 mls @ 360 mls/hr IV ONETIME ONE Stop: 09/13/19 09:09 Last Admin: 09/13/19 09:39 Dose: 360 mls/hr Ondansetron HCl (Zofran Odt) 4 mg PO Q4H PRN PRN Reason: nausea, able to take PO Last Admin: 09/06/19 10:46 Dose: 4 mg Ondansetron HCl (Zofran) 4 mg IVPUSH Q4H PRN PRN Reason: Nausea Last Admin: 09/10/19 21:49 Dose: 4 mg Ondansetron HCl (Zofran Odt) 4 mg PO Q4H PRN PRN Reason: Nausea/Vomiting Last Admin: 09/12/19 23:19 Dose: 4 mg Potassium Chloride (Klor-Con M20) 20 meq PO ONETIME ONE Stop: 09/05/19 12:15 Last Admin: 09/05/19 12:35 Dose: 20 meq Potassium Chloride (Klor-Con M20) 40 meq PO ONETIME ONE Stop: 09/06/19 09:07 Last Admin: 09/06/19 10:02 Dose: 40 meq Potassium Chloride (Klor-Con M20) 40 meq PO ONETIME ONE Stop: 09/11/19 07:40 Last Admin: 09/11/19 08:21 Dose: 40 meq Potassium Chloride (Klor-Con 10) 40 meq PO ONETIME ONE Stop: 09/12/19 08:12 Last Admin: 09/12/19 08:26 Dose: 40 meq Potassium Chloride (Klor-Con M20) 40 meq PO ONETIME ONE Stop: 09/13/19 08:21 Last Admin: 09/13/19 09:36 Dose: 40 meq Propranolol HCl (Inderal La) 160 mg PO BEDTIME [facility] Last Admin: 09/12/19 20:30 Dose: 160 mg Sodium Phosphate (Neutra-Phos) 250 mg PO QID [facility] Stop: 09/08/19 06:01 Last Admin: 09/08/19 05:50 Dose: 250 mg Vancomycin HCl (First-Vancomycin 25 Compounding Kit) 125 mg PO QID [facility] Last Admin: 09/13/19 12:21 Dose: 125 mg - Problem List & Annotations (1) C. difficile colitis SNOMED Code(s): 906172893 Code(s): A04.72 - ENTEROCOLITIS D/T CLOSTRIDIUM DIFFICILE, NOT SPCF RECUR Status: Acute (2) Dehydration SNOMED Code(s): 35859092 Code(s): E86.0 - DEHYDRATION Status: Acute (3) Immunosuppression SNOMED Code(s): 89823201 Code(s): D89.9 - DISORDER INVOLVING THE IMMUNE MECHANISM, UNSPECIFIED Status: Acute (4) Anemia associated with chemotherapy Status: Chronic Priority: High - Plan Plan:: I have seen and evaluated the patient and agree with the residents note unless specified in my note
[2019-09-12] MEDS: Propranolol 80 MG Cap.ER PO SCH (20:30)
[2019-09-13] MEDS: metroNIDAZOLE/Normal Saline 500 MG in Premix Bag 1 BAG IV SCH ×2 (03:28→10:11)
[2019-09-13] MEDS: Vancomycin 25 MG/ML Compounding Kit PO SCH ×2 (06:37→12:21)
[2019-09-13] MEDS ORDERED: Potassium Chloride 20 MEQ Tab.ER PO ONE (08:20)
[2019-09-13] MEDS ORDERED: Calcium Gluconate 10% 1 GM/10 ML SDV IVPUSH ONE (08:21)
[2019-09-13] MEDS ORDERED: Calcium Gluconate 1 GM in Dextrose 5% in Water 50 ML IV ONE ×2 (09:00)
[2019-09-13] MEDS: Dronabinol 2.5 MG Cap PO SCH (09:36)
[2019-09-13] MEDS: Apixaban 5 MG Tab PO SCH (09:37)
--- NOTE | 2019-09-13 12:23 | PCM.DCSUM1 ---
<Eliud Miner - Last Filed: 09/13/19 18:07> Discharge Summary - Hospital Course Free Text/Narrative:: Discharge summary Admission date 09-05-19 Discharge date 09-13-2019 Admission diagnoses: Abdominal pain/cramping in a patient with pancreatic cancer with liver metastasis on chemotherapy Past medical history of hypertension and DVTs Discharge diagnoses: C. difficile infection improving while on vancomycin Past medical history of pancreatic cancer with liver metastasis hypertension history of DVTs Consultations: None Procedures: None Hospital course: Patient is a 79-year-old male presenting with 1 week of abdominal cramping decreased appetite and watery diarrhea x1 week; patient has a past medical history of pancreatic cancer with liver metastasis; history of DVT, hypertension , hyperlipidemia receiving chemotherapy every [address] Edward of [place] ; throughout stay patient had stool studies suggesting C difficile; patient was initiated on p.o. vancomycin. Patient's diarrhea and bowel frequency had not changed by day 5 and IV Flagyl was initiated as well. Throughout the rest of stay patient's appetite did not improve unless Marinol was initiated. 2 days prior to discharge patient endorsed feeling stronger with improvement of his appetite and decrease in bowel frequency with diarrhea from 5 to twice daily w/ more formed caliber. Patient on day of discharge endorsed wanting to go home and felt stronger otherwise. Advised to complete course of vancomycin at home and a prescription for Marinol was sent as well with [facility]. Dr. Edward of oncology was contacted and was informed about patient's stay at hospital; agreed to reschedule patient's chemotherapy appointment for sometime in the near future. Discharge condition: Stable Disposition: Home with home health Discharge medications: Vancomycin p.o. Marinol Zofran Current home medication regimen: See chart Discharge instructions: Patient advised to continue to improve his diet by eating more protein and fats ; advised to complete vancomycin medication at home and to follow with PCP as scheduled Follow-up: PCP. Oncology - Discharge Data Discharge Date: 09/13/19 Discharge Disposition: Home, W Home Health Agency 06 Condition: Critical - Referral to Home Health Date of Face to Face Encounter: 09/13/19 Reason for Homebound Status: Pancreatic cancer w/ liver metastasis. Chronic fatigue. recent bout if infections post-chemotherapy Primary Care Physician: PCP None Skilled Need: At home care: increase recovery, improve diet , medication adminiustration; encourage eating. Stregthening w/ ambualtion - Patient Summary/Data Consults: Consultations 09/08/19 20:32 Consult to Physical Therapy [PT Evaluation and Treatment] [CONS] Routine - Patient Instructions Diet, Other: advance youir diet at home as tolerated. Eggs/chicken Activity: As Tolerated Driving: Do Not Drive Showering/Bathing: May Shower Notify Provider of: Fever, Increased Pain, Swelling and Redness, Nausea and/or Vomiting Other/Special Instructions: Please follow up with your PCP as instructed. Continue the antibiotic as given to you today before you leave. Advised to alos use the ZOfran for Nausea as needed. A new prescription for appetite has also been given to you; please use this to help you eat. If you develop diarrhea and /or your stool frequency has gone up with your diet; go back to a clear liquid diet. - Discharge Plan *PRESCRIPTION DRUG MONITORING PROGRAM REVIEWED*: No *COPY OF PRESCRIPTION DRUG MONITORING REPORT IN PATIENT JOI: No Prescriptions/Med Rec: Dronabinol [Marinol] 2.5 mg PO BID PRN 7 Days #14 cap PRN Reason: Other Ondansetron [Zofran ODT] 4 mg PO Q4H PRN 3 Days #18 tab.dis PRN Reason: Nausea/Vomiting Home Medications: Home Meds Ascorbic Acid [Vitamin C] 1,000 mg PO DAILY 01/17/18 [History] Propranolol [Inderal LA] 160 mg PO BEDTIME 01/17/18 [History] Vitamin A 10,000 unit PO DAILY 01/17/18 [History] atorvaSTATin Calcium [Atorvastatin Calcium] 10 mg PO DAILY 01/17/18 [History] Apixaban [Eliquis] 5 mg PO BID 09/17/18 [History] dexAMETHasone [Dexamethasone] 4 mg PO .TWICE DAILY X4 DAYS 09/17/18 [History] hydroCHLOROthiazide [Hydrochlorothiazide] 50 mg PO DAILY 06/17/19 [History] Dronabinol [Marinol] 2.5 mg PO BID PRN 7 Days #14 cap 09/13/19 [Rx] Ondansetron [Zofran ODT] 4 mg PO Q4H PRN 3 Days #18 tab.dis 09/13/19 [Rx] Vancomycin [First-Vancomycin 25 Compounding Kit] 125 mg PO QID bottle 09/13/19 [Rx] Oxygen Therapy Mode: Room Air Patient Handouts: Ondansetron tablets, Dronabinol, THC capsules, Clostridium Difficile Infection, [id number] Referrals: Eliud Miner MD [Resident] - 09/18/19 1:00 pm - Discharge Summary/Plan Comment DC Time >30 min.: No - Patient Data Vitals - Most Recent: Last Vital Signs Temp 98 F 09/13/19 07:41 Pulse 66 09/13/19 07:41 Resp 18 09/13/19 07:41 BP 127/75 09/13/19 07:41 Pulse Ox 96 09/13/19 07:41 Weight - Most Recent: 89.5 kg I&O - Last 24 hours: Intake & Output 09/12/19 09/13/19 09/13/19 22:59 06:59 14:59 Intake Total 920 720 Balance 920 720 Med Orders - Current: Current Medications Acetaminophen (Tylenol) 650 mg PO Q4H PRN PRN Reason: Pain (Mild 1-3)/fever Last Admin: 09/11/19 07:33 Dose: 650 mg Apixaban (Eliquis) 5 mg PO BID [facility] Last Admin: 09/13/19 09:37 Dose: 5 mg Dronabinol (Marinol) 2.5 mg PO BID [facility] Last Admin: 09/13/19 09:36 Dose: 2.5 mg Metronidazole 500 mg/ Premix 100 mls @ 100 mls/hr IV Q8H [facility] Last Admin: 09/13/19 10:11 Dose: 100 mls/hr Ondansetron HCl (Zofran Odt) 4 mg PO Q4H PRN PRN Reason: Nausea/Vomiting Last Admin: 09/12/19 23:19 Dose: 4 mg Propranolol HCl (Inderal La) 160 mg PO BEDTIME [facility] Last Admin: 09/12/19 20:30 Dose: 160 mg Vancomycin HCl (First-Vancomycin 25 Compounding Kit) 125 mg PO QID [facility] Last Admin: 09/13/19 12:21 Dose: 125 mg Discontinued Medications Heparin Sodium (Porcine) (Heparin Sodium) 5,000 units SUBCUT Q8H [facility] Last Admin: 09/11/19 05:20 Dose: 5,000 units Sodium Chloride (Normal Saline) 1,000 mls @ 999 mls/hr IV STAT ONE Stop: 09/05/19 13:12 Last Admin: 09/05/19 12:22 Dose: 999 mls/hr Sodium Chloride (Normal Saline) 1,000 mls @ 75 mls/hr IV STAT ROBY Last Admin: 09/10/19 00:06 Dose: 75 mls/hr Potassium Chloride 40 meq/ (Sodium Chloride) 350 mls @ 87.5 mls/hr IV ONETIME ONE Stop: 09/05/19 16:29 Last Admin: 09/05/19 13:10 Dose: Not Given Magnesium Sulfate 2 gm/ Premix 50 mls @ 25 mls/hr IV ONETIME ONE Stop: 09/05/19 14:29 Last Admin: 09/05/19 12:56 Dose: 25 mls/hr Potassium Chloride 40 meq/ (Sodium Chloride) 270 mls @ 67.5 mls/hr IV ONETIME ONE Stop: 09/05/19 16:29 Last Admin: 09/05/19 14:52 Dose: 67.5 mls/hr Potassium Chloride 40 meq/ (Sodium Chloride) 270 mls @ 67.5 mls/hr IV ONETIME ONE Stop: 09/06/19 13:29 Last Admin: 09/06/19 10:03 Dose: 67.5 mls/hr Magnesium Sulfate 2 gm/ Premix 50 mls @ 25 mls/hr IV ONETIME ONE Stop: 09/06/19 10:58 Last Admin: 09/06/19 10:03 Dose: 25 mls/hr Potassium Chloride 40 meq/ (Sodium Chloride) 520 mls @ 130 mls/hr IV ONETIME ONE Stop: 09/07/19 12:29 Last Admin: 09/07/19 09:01 Dose: 130 mls/hr Magnesium Sulfate 2 gm/ Premix 50 mls @ 25 mls/hr IV ONETIME ONE Stop: 09/08/19 09:09 Last Admin: 09/08/19 07:22 Dose: 25 mls/hr Potassium Chloride 40 meq/ (Premix) 100 mls @ 25 mls/hr IV ONETIME ONE Stop: 09/09/19 14:03 Last Admin: 09/09/19 12:35 Dose: 25 mls/hr Metronidazole (Flagyl 500 Mg In Ns 100 Ml) Confirm Administered Dose 100 mls @ as directed .ROUTE .STK-MED ONE Stop: 09/10/19 03:20 Last Admin: 09/10/19 03:41 Dose: Not Given Magnesium Sulfate 2 gm/ Premix 50 mls @ 25 mls/hr IV ONETIME ONE Stop: 09/10/19 11:54 Last Admin: 09/10/19 10:21 Dose: 25 mls/hr Magnesium Sulfate 2 gm/ Premix 50 mls @ 25 mls/hr IV ONETIME ONE Stop: 09/11/19 09:39 Last Admin: 09/11/19 08:21 Dose: 25 mls/hr Calcium Gluconate 1 gm/ (Dextrose/Water) 60 mls @ 360 mls/hr IV ONETIME ONE Stop: 09/13/19 09:09 Last Admin: 09/13/19 09:39 Dose: 360 mls/hr Ondansetron HCl (Zofran Odt) 4 mg PO Q4H PRN PRN Reason: nausea, able to take PO Last Admin: 09/06/19 10:46 Dose: 4 mg Ondansetron HCl (Zofran) 4 mg IVPUSH Q4H PRN PRN Reason: Nausea Last Admin: 09/10/19 21:49 Dose: 4 mg Potassium Chloride (Klor-Con M20) 20 meq PO ONETIME ONE Stop: 09/05/19 12:15 Last Admin: 09/05/19 12:35 Dose: 20 meq Potassium Chloride (Klor-Con M20) 40 meq PO ONETIME ONE Stop: 09/06/19 09:07 Last Admin: 09/06/19 10:02 Dose: 40 meq Potassium Chloride (Klor-Con M20) 40 meq PO ONETIME ONE Stop: 09/11/19 07:40 Last Admin: 09/11/19 08:21 Dose: 40 meq Potassium Chloride (Klor-Con 10) 40 meq PO ONETIME ONE Stop: 09/12/19 08:12 Last Admin: 09/12/19 08:26 Dose: 40 meq Potassium Chloride (Klor-Con M20) 40 meq PO ONETIME ONE Stop: 09/13/19 08:21 Last Admin: 09/13/19 09:36 Dose: 40 meq Sodium Phosphate (Neutra-Phos) 250 mg PO QID ROBY Stop: 09/08/19 06:01 Last Admin: 09/08/19 05:50 Dose: 250 mg <Luis Armando,Hooria - Last Filed: 09/15/19 12:01> Discharge Summary - Hospital Course HPI Initial Comments: I have seen and evaluated the patient and agree with the residents note unless specified in my note - Referral to Home Health Primary Care Physician: PCP None - Discharge Diagnosis/Problem(s) (1) C. 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 Priority: High - Patient Summary/Data Consults: Consultations 09/08/19 20:32 Consult to Physical Therapy [PT Evaluation and Treatment] [CONS] Routine - Patient Data Vitals - Most Recent: Last Vital Signs Temp 37.1 C 09/13/19 12:00 Pulse 70 09/13/19 12:00 Resp 18 09/13/19 12:00 BP 146/81 H 09/13/19 12:00 Pulse Ox 97 09/13/19 12:00 Med Orders - Current: Current Medications Discontinued Medications Acetaminophen (Tylenol) 650 mg PO Q4H PRN PRN Reason: Pain (Mild 1-3)/fever Last Admin: 09/11/19 07:33 Dose: 650 mg Apixaban (Eliquis) 5 mg PO BID [facility] Last Admin: 09/13/19 09:37 Dose: 5 mg Dronabinol (Marinol) 2.5 mg PO BID [facility] Last Admin: 09/13/19 09:36 Dose: 2.5 mg Heparin Sodium (Porcine) (Heparin Sodium) 5,000 units SUBCUT Q8H [facility] Last Admin: 09/11/19 05:20 Dose: 5,000 units Heparin Sodium (Porcine) (Heparin Lock Flush 100 Units/Ml) 500 units FLUSH ASDIRECTED ONE Stop: 09/13/19 14:27 Last Admin: 09/13/19 15:04 Dose: 500 units Sodium Chloride (Normal Saline) 1,000 mls @ 999 mls/hr IV STAT ONE Stop: 09/05/19 13:12 Last Admin: 09/05/19 12:22 Dose: 999 mls/hr Sodium Chloride (Normal Saline) 1,000 mls @ 75 mls/hr IV STAT ROBY Last Admin: 09/10/19 00:06 Dose: 75 mls/hr Potassium Chloride 40 meq/ (Sodium Chloride) 350 mls @ 87.5 mls/hr IV ONETIME ONE Stop: 09/05/19 16:29 Last Admin: 09/05/19 13:10 Dose: Not Given Magnesium Sulfate 2 gm/ Premix 50 mls @ 25 mls/hr IV ONETIME ONE Stop: 09/05/19 14:29 Last Admin: 09/05/19 12:56 Dose: 25 mls/hr Potassium Chloride 40 meq/ (Sodium Chloride) 270 mls @ 67.5 mls/hr IV ONETIME ONE Stop: 09/05/19 16:29 Last Admin: 09/05/19 14:52 Dose: 67.5 mls/hr Potassium Chloride 40 meq/ (Sodium Chloride) 270 mls @ 67.5 mls/hr IV ONETIME ONE Stop: 09/06/19 13:29 Last Admin: 09/06/19 10:03 Dose: 67.5 mls/hr Magnesium Sulfate 2 gm/ Premix 50 mls @ 25 mls/hr IV ONETIME ONE Stop: 09/06/19 10:58 Last Admin: 09/06/19 10:03 Dose: 25 mls/hr Potassium Chloride 40 meq/ (Sodium Chloride) 520 mls @ 130 mls/hr IV ONETIME ONE Stop: 09/07/19 12:29 Last Admin: 09/07/19 09:01 Dose: 130 mls/hr Magnesium Sulfate 2 gm/ Premix 50 mls @ 25 mls/hr IV ONETIME ONE Stop: 09/08/19 09:09 Last Admin: 09/08/19 07:22 Dose: 25 mls/hr Metronidazole 500 mg/ Premix 100 mls @ 100 mls/hr IV Q8H ROBY Last Admin: 09/13/19 10:11 Dose: 100 mls/hr Potassium Chloride 40 meq/ (Premix) 100 mls @ 25 mls/hr IV ONETIME ONE Stop: 09/09/19 14:03 Last Admin: 09/09/19 12:35 Dose: 25 mls/hr Metronidazole (Flagyl 500 Mg In Ns 100 Ml) Confirm Administered Dose 100 mls @ as directed .ROUTE .STK-MED ONE Stop: 09/10/19 03:20 Last Admin: 09/10/19 03:41 Dose: Not Given Magnesium Sulfate 2 gm/ Premix 50 mls @ 25 mls/hr IV ONETIME ONE Stop: 09/10/19 11:54 Last Admin: 09/10/19 10:21 Dose: 25 mls/hr Magnesium Sulfate 2 gm/ Premix 50 mls @ 25 mls/hr IV ONETIME ONE Stop: 09/11/19 09:39 Last Admin: 09/11/19 08:21 Dose: 25 mls/hr Calcium Gluconate 1 gm/ (Dextrose/Water) 60 mls @ 360 mls/hr IV ONETIME ONE Stop: 09/13/19 09:09 Last Admin: 09/13/19 09:39 Dose: 360 mls/hr Ondansetron HCl (Zofran Odt) 4 mg PO Q4H PRN PRN Reason: nausea, able to take PO Last Admin: 09/06/19 10:46 Dose: 4 mg Ondansetron HCl (Zofran) 4 mg IVPUSH Q4H PRN PRN Reason: Nausea Last Admin: 09/10/19 21:49 Dose: 4 mg Ondansetron HCl (Zofran Odt) 4 mg PO Q4H PRN PRN Reason: Nausea/Vomiting Last Admin: 09/12/19 23:19 Dose: 4 mg Potassium Chloride (Klor-Con M20) 20 meq PO ONETIME ONE Stop: 09/05/19 12:15 Last Admin: 09/05/19 12:35 Dose: 20 meq Potassium Chloride (Klor-Con M20) 40 meq PO ONETIME ONE Stop: 09/06/19 09:07 Last Admin: 09/06/19 10:02 Dose: 40 meq Potassium Chloride (Klor-Con M20) 40 meq PO ONETIME ONE Stop: 09/11/19 07:40 Last Admin: 09/11/19 08:21 Dose: 40 meq Potassium Chloride (Klor-Con 10) 40 meq PO ONETIME ONE Stop: 09/12/19 08:12 Last Admin: 09/12/19 08:26 Dose: 40 meq Potassium Chloride (Klor-Con M20) 40 meq PO ONETIME ONE Stop: 09/13/19 08:21 Last Admin: 09/13/19 09:36 Dose: 40 meq Propranolol HCl (Inderal La) 160 mg PO BEDTIME [facility] Last Admin: 09/12/19 20:30 Dose: 160 mg Sodium Phosphate (Neutra-Phos) 250 mg PO QID [facility] Stop: 09/08/19 06:01 Last Admin: 09/08/19 05:50 Dose: 250 mg Vancomycin HCl (First-Vancomycin 25 Compounding Kit) 125 mg PO QID [facility] Last Admin: 09/13/19 12:21 Dose: 125 mg
== END 2019-09-13 15:30 | disposition home health service (06) | DRG 372 ==
LOC: MW.MS 11:33
PROVIDERS: ADMIT Internal Medicine; ATTEND Internal Medicine
PROC: 30233N1 Transfusion of Nonautologous Red Blood Cells into Peripheral Vein, Percutaneous Approach (ICD-10-PCS; principal; 2019-09-08)
DX: A04.72 Enterocolitis due to Clostridium difficile, not specified as recurrent (principal); C78.7 Secondary malignant neoplasm of liver and intrahepatic bile duct; C25.9 Malignant neoplasm of pancreas, unspecified; N17.9 Acute kidney failure, unspecified; E86.0 Dehydration; D89.9 Disorder involving the immune mechanism, unspecified; D64.81 Anemia due to antineoplastic chemotherapy; E78.00 Pure hypercholesterolemia, unspecified; I10 Essential (primary) hypertension; G43.909 Migraine, unspecified, not intractable, without status migrainosus; E66.9 Obesity, unspecified; E87.6 Hypokalemia; D47.3 Essential (hemorrhagic) thrombocythemia; E78.5 Hyperlipidemia, unspecified; E83.39 Other disorders of phosphorus metabolism; Z88.0 Allergy status to penicillin; Z98.49 Cataract extraction status, unspecified eye; Z86.718 Personal history of other venous thrombosis and embolism; Z87.442 Personal history of urinary calculi; Z87.891 Personal history of nicotine dependence; Z68.26 Body mass index [BMI] 26.0-26.9, adult
CPT/HCPCS: 36415; 36430; 80048; 80053; 81003; 83735; 84100; 85014; 85018; 85025; 86850; 86900; 86901; 86920; 86921; 86922; 87046; 87324; 87328; 87329; 87899; 97161-GP; A9270-GY; J0610; J1642; J1644; J2405; J3475; J3480; J3490; J7030; J7040; J7050; J7060; P9016; Q0167